=== PATIENT | female | born 2000 | race Caucasian/White ===

== ENCOUNTER 2021-04-24 19:57 | Emergency (ER) | payer SELFPAY ==
--- NOTE | ~2021-04-24 | US_ITS ---
EXAMINATION: US OB <= 14 weeks fetus DATE: 04/24/2021 21:04 INDICATION: Pelvic pain during first trimester of . TECHNIQUE: Real-time pelvic ultrasound utilizing both a transvaginal and transabdominal probe was pe rformed. The interpreting radiologist was not present for the study. COMPARISON: None. FINDINGS: The anteverted uterus measures 9.9 x 6.7 x 5.7 cm. There is an intrauterine gestational sac. A yolk sac and pole are identified. The crown rump length measures 9 mm, which correlates with an giancarlo mated gestational age of 6 weeks and 6 days. heart motion is identified measuring 136 beats per minute (bpm) by M-mode Doppler. 1.8 x 0.9 x 0.7 cm hypoechoic subchorionic hematoma. The right ovary measures 2.5 x 3.1 x 2.8 cm. And contains a 2.6 cm likely corpus luteum cyst. Vascula r flow seen at the right ovary on color Doppler. The left ovary is not visualized. There is no free f luid in the pelvis. IMPRESSION: 1. Single living fetus with heart rate of 136 bpm. 2. Gestational age by ultrasound of 6 weeks 6 day(s) +/- 4 day(s) with ultrasound estimated date of delivery (TAINA) of 12/12/2021. 3. Small subchorionic hematoma. Reviewed, dictated and finalized at location A. IMPRESSION: 1. Single living fetus with heart rate of 136 bpm. 2. Gestational age by ultrasound of 6 weeks 6 day(s) +/- 4 day(s) with ultraso und estimated date of delivery (TIANA) of 12/12/2021. 3. Small subchorionic hematoma.
[2021-04-24 20:15] VITALS: BP 111/61; PULSE 82; RESP 17; TEMP 36.8; O2SAT 100
--- NOTE | 2021-04-24 20:17 | ED.GENADULT ---
HPI - General Adult General Chief complaint: Nausea/Vomiting/Diarrhea Stated complaint: 3-4 weeks ago, N/V Time Seen by Provider: 04/24/21 20:02 History of Present Illness HPI narrative: Patient is a 20-year-old female presents the emergency department with chief complaint of nausea vomiting and abdominal cramping. The patient reports she is approximately 7 weeks and has seen an OB but has not had an ultrasound. The patient denies vaginal bleeding or vaginal discharge reports that she has had a headache today and reports that she has been having multiple episodes of nausea and vomiting the patient reports has not been able to keep fluids down reports that this is her third reports that her most recent was complicated with a placental abruption. Patient reports that she is receiving care, and reports that she is Rh+. Related Data Allergies Allergy/AdvReac Type Severity Reaction Status Date / Time naproxen Allergy Unknown Unknown Verified 04/24/21 20:18 sulfamethoxazole Allergy Unknown Unknown Verified 04/24/21 20:18 trimethoprim Allergy Unknown Unknown Verified 04/24/21 20:18 LIVE VACCINES Allergy Severe Other Uncoded 07/08/18 05:16 Review of Systems Review of Systems: Narrative: A 10 system review of systems was completed on the patient and is negative except for what is stated in the HPI. Nursing and ancillary documentation was reviewed. [facility] Social History Social History Gender identity (if verbalized by the patient): Female Exam Narrative: Exam Narrative: GENERAL: Well-appearing, well-nourished, and in no acute distress. HEAD: Normocephalic, atraumatic. EYES: PERRLA and EOMI. ENT: Nares clear, no rhinorrhea or epistaxis. Mucous membranes moist. NECK: Supple. CHEST: Clear to auscultation. No respiratory distress. HEART: Regular rate and rhythm. No murmur heard. Normal peripheral pulses. ABDOMEN: Soft, mild tenderness to palpation in the suprapubic area, nondistended, normal active bowel sounds. EXTREMITIES: Normal range of motion. No edema. SKIN: Warm, dry, no rash. NEURO: No focal deficits. Alert and oriented x3. PSYCH: Normal mood and affect. Course Vital Signs Vital signs: Vital Signs Temperature 36.8 C 04/24/21 20:15 Pulse Rate 82 07/17/21 20:15 Respiratory Rate 17 04/24/21 20:15 Blood Pressure 111/61 04/24/21 20:15 Pulse Oximetry 100 04/24/21 20:15 Temperature 36.8 C 04/24/21 20:15 Pulse Rate 82 04/24/21 20:15 Respiratory Rate 17 04/24/21 20:15 Blood Pressure 111/61 04/24/21 20:15 Pulse Oximetry 100 04/24/21 20:15 Medical Decision Making Vital Signs Vital Signs: Vital Signs Temperature 36.8 C 04/24/21 20:15 Pulse Rate 82 04/24/21 20:15 Respiratory Rate 17 04/24/21 20:15 Blood Pressure 111/61 04/24/21 20:15 Pulse Oximetry 100 04/24/21 20:15 Temperature 36.8 C 04/24/21 20:15 Pulse Rate 82 04/24/21 20:15 Respiratory Rate 17 04/24/21 20:15 Blood Pressure 111/61 04/24/21 20:15 Pulse Oximetry 04/24/21 20:15 Lab Data Result diagrams: 04/24/21 20:27 04/24/21 20:27 Labs: Lab Results 04/24/21 04/24/21 04/24/21 Range/Units 20:27 20:27 20:27 WBC 13.8 H (4.5-10.0) K/mm3 RBC 4.13 L (4.2-5.4) M/mm3 Hgb 11.8 L (12.0-15.0) g/dL Hct 36.6 L (37.0-47.0) % MCV 88.6 (80-100) fl MCH 28.6 (26-34) pg MCHC 32.2 (32-36) g/dl RDW 13.7 (11.5-14.5) % Plt Count 240 (150-375) k/mm3 MPV 11.2 H (7.4-10.4) fl Immature Gran % (Auto) 0.4 (0-0.5) % Neut % (Auto) 65.6 (45.5-73.1) % Lymph % (Auto) 25.5 (18.3-44.2) % [place] % (Auto) 7.0 (2.6-8.5) % Eos % (Auto) 0.9 (0-4.4) % Baso % (Auto) 0.6 (0.2-1.2) % Lymph # (Auto) 3.51 H (0.9-3.2) K/mm3 [place] # (Auto) 1.0 H (0.1-0.6) K/mm3 Eos # (Auto) 0.1 (0-0.3) K/mm3 Baso
[2021-04-24] MEDS: SODIUM CHLORIDE 0.9% IV 1,000 ML 999 ML IV CONT (20:32)
[2021-04-24] MEDS: diphenhydrAMINE HCl INJ 50 MG/ML VIAL 25 MG IV PUSH (20:32)
[2021-04-24] MEDS: METOCLOPRAMIDE HCL INJ 10 MG/2 ML VIAL IV PUSH (20:32)
[2021-04-24 20:35] LABS: Basophils Absolute Auto 0.1 K/mm3 (0.0-0.1); Basophils Percent Auto 0.6 % (0.2-1.2); Eosinophils Absolute Auto 0.1 K/mm3 (0-0.3); Eosinophils Percent Auto 0.9 % (0-4.4); Hematocrit 36.6 % (37.0-47.0); Hemoglobin 11.8 g/dL (12.0-15.0); Immature Granulocyte Absolute 0.05 K/mm3 (0.00-0.031); Immature Granulocyte Percent A 0.4 % (0-0.5); Lymphocytes Absolute Auto 3.51 K/mm3 (0.9-3.2); Lymphocytes Percent Auto 25.5 % (18.3-44.2); Mean Corpuscular HGB Conc 32.2 g/dl (32-36); Mean Corpuscular Hemoglobin 28.6 pg (26-34); Mean Corpuscular Volume 88.6 fl (80-100); Mean Platelet Volume 11.2 fl (7.4-10.4); Neutrophils Absolute Auto 9.1 K/mm3 (1.3-6.7); Neutrophils Percent Auto 65.6 % (45.5-73.1); Platelet Count Result 240 k/mm3 (150-375); Red Blood Count 4.13 M/mm3 (4.2-5.4); Red Cell Distribution Width 13.7 % (11.5-14.5); White Blood Count 13.8 K/mm3 (4.5-10.0)
[2021-04-24 20:42] LABS: Add Urine Microscopic? YES; Appearance Urine Cloudy (Clear); Bacteria Urine Trace /hpf; Bilirubin Urine Negative (Negative); Blood Urine Negative (Negative); Color Urine Yellow (Yellow); Glucose Urine UA Negative (Negative); Ketones Urine Negative (Negative); Leukocyte Esterase Ur Negative LEU/UL (Negative); Mucus Urine Rare /lpf; Nitrate Urine Negative (Negative); Protein Urine Negative (Negative); RBC Urine 0-2 /hpf (0-2); Specific Grav Ur 1.011 (1.001-1.035); Squamous Epithelial Cell Urine Many /hpf (Few); Urobilinogen Urine Negative mg/dL (<2.0); WBC Urine 0-3 /hpf
[2021-04-24 20:45] LABS: Alanine Aminotransferase 18 U/L (4-35); Albumin Level 4.3 g/dL (3.5-5.1); Alkaline Phosphatase 75 U/L (38-126); Anion Gap 9 mmol/L (8-16); Aspartate Amino Transferase 25 U/L (14-36); Bilirubin,Total 0.2 mg/dL (0.2-1.3); Blood Urea Nitrogen 7 mg/dL (7-17); Calcium 9.8 mg/dL (8.4-10.2); Carbon Dioxide 23 mmol/L (22-30); Chloride 105 mmol/L (98-107); Estimated CRCL calculation 137 ml/min; Estimated Glomerular Filt Rate > 60; Glucose 92 mg/dL (65-110); Lipase 34 U/L (23-300); Potassium 4.1 mmol/L (3.4-5.0); Sodium 137 mmol/L (137-145)
[2021-04-24 22:28] VITALS: BP 134/78; PULSE 87; RESP 16; O2SAT 98
== END 2021-04-24 22:30 | disposition home or self-care (01) ==
PROVIDERS: Emergency Provider Emergency Medicine; PCP Obstetrics & Gynecology
DX: O21.9 Vomiting of pregnancy, unspecified (principal); O46.8X1 Other antepartum hemorrhage, first trimester; Z3A.01 Less than 8 weeks gestation of pregnancy
CPT/HCPCS: 36415; 76801; 80053; 81001; 81025; 83690; 84702; 85025; 85461; 96374; 96375; 99284; J1200; J2765; J7030

== ENCOUNTER 2021-05-17 11:09 | Outpatient (CLI) | payer OTHER, SELFPAY ==
--- NOTE | ~2021-05-17 | US_ITS ---
EXAMINATION: US OB <= 14 weeks fetus DATE: 05/17/2021 12:05 INDICATION: Routine care, first trimester TECHNIQUE: Real-time pelvic transabdominal and transvaginal ultrasound was performed. COMPARISON: 04/24/2021 FINDINGS: The uterus measures 11.4 x 7.4 x 8.6 cm. There is an intrauterine gestational sac. There i s an unchanged 1.7 x 0.5 x 1.0 cm hypoechoic area adjacent to the gestational sac. A yolk sac is iden tified. heart motion is identified measuring 167 beats per minute (bpm) by M-mode Doppler. The crown rump length measures 3.4 cm , which correlates with an estimated gestational age of 10 we eks and 2 day(s) (+/-) 6 day(s). The left ovary is not visualized however no left adnexal abnormality is seen. The right ovary measure s measures 4.4 x 2.4 x 3.2 cm and contains cysts measuring up to 2.3 cm. There is normal vascular melvi w in the right ovary. There is no free fluid in the pelvis. IMPRESSION: 1. Live intrauterine with an estimated gestational age of 10 weeks and 2 day(s) (+/-) 6 day (s) and an estimated delivery date of 12/11/2021. 2. Small subchronic hematoma, unchanged. Reviewed, dictated and finalized at location B. IMPRESSION: 1. Live intrauterine with an estimated gestational age of 10 weeks an d 2 day(s) (+/-) 6 day(s) and an estimated delivery date of 12/11/2021. 2. Small subchronic hematoma, unchanged.
== END 2021-05-17 11:10 | disposition home or self-care (01) ==
PROVIDERS: PCP Obstetrics & Gynecology; Visit Provider Physician Assistant
DX: O36.8911 Maternal care for other specified fetal problems, first trimester, fetus 1 (principal); Z3A.10 10 weeks gestation of pregnancy
CPT/HCPCS: 76801

== ENCOUNTER 2021-10-24 11:24 | Observation (INO) | payer OTHER, SELFPAY ==
[2021-10-24 11:45] VITALS: BP 114/67; PULSE 82
[2021-10-24 11:59] LABS: Add Urine Microscopic? YES; Appearance Urine Clear (Clear); Bacteria Urine Trace /hpf; Bilirubin Urine Negative (Negative); Blood Urine Negative (Negative); Color Urine Yellow (Yellow); Glucose Urine UA Negative (Negative); Ketones Urine Trace mg/dL (Negative); Leukocyte Esterase Ur Negative LEU/UL (NEGATIVE); Mucus Urine Few /lpf; Nitrate Urine Negative (Negative); Protein Urine Negative (Negative); Specific Grav Ur 1.018 (1.001-1.035); Squamous Epithelial Cell Urine Many /hpf (Few); Urobilinogen Urine Negative mg/dL (<2.0); WBC Urine 0-3 /hpf (0-3)
[2021-10-24 12:00] VITALS: BP 111/60; PULSE 76
[2021-10-24 12:15] VITALS: BP 106/62; PULSE 79
--- NOTE | 2021-10-24 12:26 | OBADM ---
This patient, Yumiko Arriola, admitted to the OB room OB Post 116 for observation. Patient/family oriented to hospital policies and general routines including ID bracelet, bed and alarms, visiting hours, pain management, procedures, bathroom and other care routines, personal items, smoking policy, room service/diet, and visiting hours. Patient/Family are encouraged to report perceived risks to care and to ask questions if they do not understand what they are told or what they should do.
[2021-10-24 12:37] VITALS: BP 114/67; PULSE 79
--- NOTE | 2021-10-24 12:38 | PC.NURSE ---
1130- Patient presented with complaint of pelvic pain since this morning at 0600. patient states that she is a patient of Dr. Garsia, but has not been seen since around August. 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 patient states she plans on delivering here.
--- NOTE | 2021-10-24 12:40 | PC.NURSE ---
1220- SPoke with Dr. David Hernandez, urinalysis results given. Orders to do SVE, may discharge home if unremarkable. Patient to come to his office tomorrow morning around 0900 to be seen by him and establish care. If patient unable to make it to office tomorrow , call to make at appt this week.
--- NOTE | 2021-10-26 07:11 | PM.OBTRLD ---
OB - Triage/Final Diagnosis Visit Information Reason for evaluation: threatened labor Comments/Additional reasons for admission: I have assessed the risk for this patient, Yumiko Arriola, and determined that she would benefit from observation care. Evaluation Laboratory results: Laboratory Tests 10/24/21 11:48 Urine Color Yellow Urine Appearance Clear Urine pH 7.0 Ur Specific [place] 1.018 Urine Protein Negative Urine Glucose (UA) Negative Urine Ketones Trace Ur Blood (Man) Negative Urine Nitrate Negative Urine Bilirubin Negative Urine Urobilinogen Negative Ur Leukocyte Esterase Negative Urine RBC 3-5 H Urine WBC 0-3 Ur Squamous Epith Cells Many H Urine Bacteria Trace Urine Mucus Few H
== END 2021-10-24 12:35 | disposition home or self-care (01) ==
PROVIDERS: Admitting Provider Obstetrics & Gynecology; PCP Obstetrics & Gynecology; Visit Provider Obstetrics & Gynecology
DX: O47.03 False labor before 37 completed weeks of gestation, third trimester (principal); Z3A.33 33 weeks gestation of pregnancy
CPT/HCPCS: 59025; 81001; 87086; 87088; G0378; G0379

== ENCOUNTER 2021-10-31 15:44 | Observation (INO) | payer OTHER, SELFPAY ==
[2021-10-31] VITALS (10 sets, daily range): BP systolic 106–126; BP diastolic 34–67; PULSE 78–94; BMI 32.0
--- NOTE | 2021-10-31 16:05 | PM.OBTRLD ---
OB - Triage/Final Diagnosis Visit Information Date of evaluation: 10/30/22 Reason for evaluation: other (nausea) Comments/Additional reasons for admission: I have assessed the risk for this patient, Yumiko Pulliam Flako, and determined that she would benefit from observation care. Evaluation Vital signs: Vital Signs - 24 hr 10/31/21 15:56 10/31/21 16:01 Pulse Rate 84 89 Blood Pressure 124/59 L 121/64
[2021-10-31 17:09] LABS: Add Urine Microscopic? YES; Appearance Urine Clear (Clear); Bacteria Urine Trace /hpf; Bilirubin Urine Negative (Negative); Blood Urine Negative (Negative); Color Urine Yellow (Yellow); Glucose Urine UA Negative (Negative); Ketones Urine 2+ mg/dL (Negative); Leukocyte Esterase Ur Negative LEU/UL (Negative); Mucus Urine Heavy /lpf; Nitrate Urine Negative (Negative); Protein Urine 1+ mg/dL (Negative); RBC Urine 0-2 /hpf (0-2); Specific Grav Ur 1.029 (1.001-1.035); Squamous Epithelial Cell Urine Many /hpf (Few); Urobilinogen Urine Negative mg/dL (<2.0); WBC Urine 0-3 /hpf
--- NOTE | 2021-10-31 17:27 | OBADM ---
This patient, Yumiko Arriola, admitted to the OB room OB Post 115 for observation. Patient/family oriented to hospital policies and general routines including ID bracelet, bed and alarms, visiting hours, pain management, procedures, bathroom and other care routines, personal items, smoking policy, room service/diet, and visiting hours. Patient/Family are encouraged to report perceived risks to care and to ask questions if they do not understand what they are told or what they should do.
[2021-10-31] MEDS: ACETAMINOPHEN 500 MG TABLET 1000 MG PO (17:39)
[2021-10-31] MEDS: PROMETHAZINE HCL 25 MG/ML AMPUL 12.5 MG IV PUSH (17:40)
== END 2021-10-31 18:25 | disposition home or self-care (01) ==
PROVIDERS: Admitting Provider Student in an Organized Health Care Education/Training Program; Visit Provider Student in an Organized Health Care Education/Training Program
DX: O26.893 Other specified pregnancy related conditions, third trimester (principal); R11.0 Nausea; Z3A.34 34 weeks gestation of pregnancy
CPT/HCPCS: 81001; 96374; A9270; G0378; G0379; J2550

== ENCOUNTER 2021-11-26 20:02 | Observation (INO) | payer OTHER, SELFPAY ==
[2021-11-26] VITALS (9 sets, daily range): BP systolic 106–118; BP diastolic 50–66; PULSE 57–86; TEMP 36.8; BMI 31.5
--- NOTE | 2021-11-26 20:55 | OBADM ---
This patient, Yumiko Arriola, admitted to the OB room Labor/Delivery/Recovery 105 for observation. Patient/family oriented to hospital policies and general routines including ID bracelet, bed and alarms, visiting hours, pain management, procedures, bathroom and other care routines, personal items, smoking policy, room service/diet, and visiting hours. Patient/Family are encouraged to report perceived risks to care and to ask questions if they do not understand what they are told or what they should do.
--- NOTE | 2021-12-01 09:10 | PM.OBTRLD ---
OB - Triage/Final Diagnosis Visit Information Date of evaluation: 11/26/21 Reason for evaluation: threatened labor Comments/Additional reasons for admission: I have assessed the risk for this patient, Yumiko Pulliam Flako, and determined that she would benefit from observation care.
== END 2021-11-26 23:05 | disposition home or self-care (01) ==
PROVIDERS: Admitting Provider Obstetrics & Gynecology; Visit Provider Student in an Organized Health Care Education/Training Program
DX: O47.9 False labor, unspecified (principal); Z3A.00 Weeks of gestation of pregnancy not specified
CPT/HCPCS: 84112; G0378; G0379

== ENCOUNTER 2021-12-06 06:14 | Inpatient (IN) | payer OTHER, SELFPAY ==
[2021-12-06] VITALS (23 sets, daily range): BP systolic 93–143; BP diastolic 48–102; PULSE 49–191; RESP 16–20; TEMP 36.2–37.1; O2SAT 98–100; BMI 31.5
[2021-12-06 06:59] LABS: Basophils Absolute Auto 0.1 K/mm3 (0.0-0.1); Basophils Percent Auto 0.6 % (0.2-1.2); Eosinophils Absolute Auto 0.1 K/mm3 (0-0.3); Eosinophils Percent Auto 0.8 % (0-4.4); Hematocrit 31.4 % (37.0-47.0); Hemoglobin 10.3 g/dL (12.0-15.0); Immature Granulocyte Absolute 0.19 K/mm3 (0.00-0.031); Immature Granulocyte Percent A 1.5 % (0-0.5); Lymphocytes Absolute Auto 2.66 K/mm3 (0.9-3.2); Lymphocytes Percent Auto 20.7 % (18.3-44.2); Mean Corpuscular HGB Conc 32.8 g/dl (32-36); Mean Corpuscular Hemoglobin 28.3 pg (26-34); Mean Corpuscular Volume 86.3 fl (80-100); Mean Platelet Volume 11.4 fl (7.4-10.4); Monocytes Absolute Auto 0.7 K/mm3 (0.1-0.6); Monocytes Percent Auto 5.1 % (2.6-8.5); Neutrophils Absolute Auto 9.2 K/mm3 (1.3-6.7); Neutrophils Percent Auto 71.3 % (45.5-73.1); Platelet Count Result 220 k/mm3 (150-375); Red Blood Count 3.64 M/mm3 (4.2-5.4); Red Cell Distribution Width 13.9 % (11.5-14.5); White Blood Count 12.9 K/mm3 (4.5-10.0)
--- NOTE | 2021-12-06 07:01 | LDADM ---
This patient, Yumiko Arirola, was admitted to Labor/Delivery/Recovery 106 on 12/06/21 at 06:14. Plans for labor, pain management and were discussed with patient. Patient/family oriented to hospital policies and general routines including ID bracelet, bed and alarms, visiting hours, pain management, procedures, bathroom and other care routines, personal items, smoking policy, room service/diet and guest tray routines, infant security routines, and visiting hours. Patient/Family are encouraged to report perceived risks to care and to ask questions if they do not understand what they are told or what they should do. See OBIX for further documentation.
[2021-12-06 07:14] LABS: Amphetamine Screen Urine Negative (Negative); Barbiturate Screen Urine Negative (Negative); Benzodiazepines Screen Urine Negative (Negative); Cannabinoid Screen Urine Positive (Negative); Cocaine Screen Urine Negative (Negative); Methadone Screen Urine Negative (Negative); Opiate Screen Urine Negative (Negative); Phencyclidine Screen Urine Negative (Negative)
[2021-12-06] MEDS: LACTATED RINGERS 1,000 ML 125 ML IV CONT (07:17)
[2021-12-06] MEDS: OXYTOCIN 30 UNITS/NS 500 ML 30 UNITS/500 ML BAG IV CONT (07:17)
--- NOTE | 2021-12-06 07:29 | PM.IMHP ---
H&P: HPI History of Present Illness Date/Time: 21-year-old 3 para 2 last menstrual period is unknown but EDC is 12/26 2x10 presented at 39 weeks gestation for induction of labor she had a favorable cervix. She had a history of fast labor delivery and head delivered in the ambulance last visit. She is negative for group B strep and a 10 week ultrasound confirms dates Chief Complaint: induction at term Review of Systems Review of Systems: All systems reviewed & are unremarkable except as noted in HPI and below PMFSH Social History Social History Smoking packs per day: 0.5 Smoking cigarettes per day: 10.0 Years smoked: 10 Smoking pack-years: 5.00 Smoking status: Current every day smoker Tobacco type: cigarettes Gender identity (if verbalized by the patient): Female Spiritual care concerns: No Meds Home Medications and Allergies Home Medications Medication Instructions Recorded Confirmed Type metoclopramide HCl [Reglan] 10 mg PO Q8H PRN 7 Days #21 tablet 04/24/21 12/06/21 Rx PNV cmb#95-ferrous fumarate-FA 1 tablet PO DAILY 10/24/21 12/06/21 History [] acyclovir 800 mg PO DAILY 12/06/21 12/06/21 History Allergies Allergy/AdvReac Type Severity Reaction Status Date / Time naproxen Allergy Rash Verified 11/01/21 11:34 sulfamethoxazole Allergy Rash Verified 11/01/21 11:34 [From Bactrim] trimethoprim [From Bactrim] Allergy Rash Verified 11/01/21 11:34 LIVE VACCINES Allergy Severe Other Uncoded 11/01/21 11:34 Vital Signs Vital Signs - 24 hr 12/06/21 06:43 12/06/21 07:12 Pulse Rate 78 71 Blood Pressure 103/67 116/71 Exam Const: General: no acute distress Eyes: General: appearance normal, both eyes and all related structures Neck: Neck: supple and no JVD Thyroid: thyroid normal Resp: Effort & Inspection: normal respiratory effort Auscultation: clear to auscultation bilaterally Cardio: Rate: regular rate Rhythm: regular rhythm GI: Inspection: non-distended GI Palp: Yes Soft to palpation, No Tenderness to palpation present (GI) and No Guarding due to palpation present (GI) Auscultation: normal bowel sounds : External Female Exam: normal external appearance Speculum Exam - Vagina: normal appearance of the vagina Speculum Exam - Cervix: Cervical os closed ( cervix 3/75/1. AROM clear. FHTs reassuring) Skin: General skin exam: no rashes or lesions noted Extrem: General: normal to inspection and no edema Psych: Mental Status: mental status grossly normal Affect: normal affect H&P: Results Labs Labs: Short CBC 12/06/21 Range/Units 06:51 WBC 12.9 H (4.5-10.0) K/mm3 Hgb 10.3 L (12.0-15.0) g/dL Hct 31.4 L (37.0-47.0) % Plt Count 220 (150-375) k/mm3 Assessment and Plan Additional Plan impression: Term with favorable cervix and history of rapid delivery Plan: Medical induction of labor. Spontaneous vaginal of expected. She does not want an epidural
[2021-12-06 07:51] LABS: HIV 1/2 Ab P24 Ag Result Negative (Negative)
--- NOTE | 2021-12-06 08:46 | WPDANESEPP ---
Anes - Eval Pre Procedure Procedure: labor epidural Date/Time: 12/06/21 08:46 Surgeon: chantal tatum Preop Diagnosis: pain during labor Pre Op Diagnosis: Induction of Labor Patient Data Age: 21 Gender: F Height: 1.68 m Weight: 88.6 kg Last Vital Signs Temp 36.9 C 12/06/21 08:30 Pulse 58 L 12/06/21 08:31 Resp 20 12/06/21 08:30 BP 106/78 12/06/21 08:31 Allergies Allergy/AdvReac Type Severity Reaction Status Date / Time naproxen Allergy Rash Verified 11/01/21 11:34 sulfamethoxazole Allergy Rash Verified 11/01/21 11:34 [From Bactrim] trimethoprim [From Bactrim] Allergy Rash Verified 11/01/21 11:34 LIVE VACCINES Allergy Severe Other Uncoded 11/01/21 11:34 Home Medications Medication Instructions Recorded Confirmed Type metoclopramide HCl [Reglan] 10 mg PO Q8H PRN 7 Days #21 tablet 04/24/21 12/06/21 Rx PNV cmb#95-ferrous fumarate-FA 1 tablet PO DAILY 10/24/21 12/06/21 History [] acyclovir 800 mg PO DAILY 12/06/21 12/06/21 History Laboratory Tests 12/06/21 12/06/21 12/06/21 06:51 06:51 06:51 WBC 12.9 K/mm3 H K/mm3 (4.5-10.0) RBC 3.64 M/mm3 L M/mm3 (4.2-5.4) Hgb 10.3 g/dL L g/dL (12.0-15.0) Hct 31.4 % L % (37.0-47.0) MCV 86.3 fl fl (80-100) MCH 28.3 pg pg (26-34) MCHC 32.8 g/dl g/dl (32-36) RDW 13.9 % % (11.5-14.5) Plt Count 220 k/mm3 k/mm3 (150-375) MPV 11.4 fl H fl (7.4-10.4) Immature Gran % (Auto) 1.5 % H % (0-0.5) Neut % (Auto) 71.3 % % (45.5-73.1) Lymph % (Auto) 20.7 % % (18.3-44.2) [place] % (Auto) 5.1 % % (2.6-8.5) Eos % (Auto) 0.8 % % (0-4.4) Baso % (Auto) 0.6 % % (0.2-1.2) Lymph # (Auto) 2.66 K/mm3 K/mm3 (0.9-3.2) [place] # (Auto) 0.7 K/mm3 H K/mm3 (0.1-0.6) Eos # (Auto) 0.1 K/mm3 K/mm3 (0-0.3) Baso # (Auto) 0.1 K/mm3 K/mm3 (0.0-0.1) Abs Immat Gran (auto) 0.19 K/mm3 H K/mm3 (0.00-0.031) Absolute Neuts (auto) 9.2 K/mm3 H K/mm3 (1.3-6.7) Absolute Nucleated RBC 0.0 K/mm3 K/mm3 (0.0-0.012) Nucleated RBC % 0.0 % % (0.0-0.2) Urine Opiates Screen Urine Methadone Screen Ur Barbiturates Screen Ur Phencyclidine Scrn Ur Amphetamine Screen U Benzodiazepines Scrn Urine Cocaine Screen U Cannabinoids Screen RPR Pending HIV 1&2 Ab/P24 Ag 4thGn Negative (Negative) Blood Type Antibody Screen 12/06/21 12/06/21 06:51 06:51 WBC RBC Hgb Hct MCV MCH MCHC RDW Plt Count MPV Immature Gran % (Auto) Neut % (Auto) Lymph % (Auto) [place] % (Auto) Eos % (Auto) Baso % (Auto) Lymph # (Auto) [place] # (Auto) Eos # (Auto) Baso # (Auto) Abs Immat Gran (auto) Absolute Neuts (auto) Absolute Nucleated RBC Nucleated RBC % Urine Opiates Screen Negative (Negative) Urine Methadone Screen Negative (Negative) Ur Barbiturates Screen Negative (Negative) Ur Phencyclidine Scrn Negative (Negative) Ur Amphetamine Screen Negative (Negative) U Benzodiazepines Scrn Negative (Negative) Urine Cocaine Screen Negative (Negative) U Cannabinoids Screen Positive A (Negative) RPR HIV 1&2 Ab/P24 Ag 4thGn Blood Type O Positive Antibody Screen Negative Patient hx anesthesia problems: none Family hx anesthesia problems: none Results Review: All pre-operative results and documents have been reviewed as part of the pre-operative evaluation. PMFSH Past Medical History
[2021-12-06] MEDS: ONDANSETRON INJ 4 MG/2 ML VIAL IV PUSH ×2 (09:00→13:20)
[2021-12-06] MEDS: fentaNYL CITRATE INJ (*CRX) 100 MCG/2 ML VIAL 50 MCG IV PUSH (09:22)
--- NOTE | 2021-12-06 10:19 | PM.OBPRVD ---
OB - Delivery Note Procedure Delivery date: 12/06/21 Procedure: mil Induction method: AROM Delivery augmentation: Pitocin Delivery monitor: External FHT Route of delivery: Episiotomy description: None Laceration Description: None Specimen: No Quantitative Blood Loss (ml): 59 Disposition: floor Baby Date of : 12/06/21 Time of : 10:06 Weeks of gestation at delivery: 39 Infant gender: Female presentation: vertex position: Right Occiput Anterior Placenta delivery description: Spontaneous Cord Vessel Description: 3 Vessels and Nuchal Cord (x3) score one minute: 8 score five minutes: 9
[2021-12-06] MEDS: OXYTOCIN 30 UNITS/NS 500 ML 30 UNITS/500 ML BAG 125 UNITS IV CONT (10:44)
--- NOTE | 2021-12-06 12:40 | PC.NURSE ---
Patient transferred to post room #284 via wheelchair. Support person present. Oriented to unit, room, information board, rooming in, admission packet and security measures. Patient verbalizes understanding.
[2021-12-06] MEDS: IBUPROFEN 600 MG TABLET PO (16:40)
[2021-12-06] MEDS: PROMETHAZINE HCL 25 MG/ML AMPUL 12.5 MG IV PUSH (18:45)
[2021-12-07 00:25] VITALS: BP 113/68; PULSE 50; RESP 16; TEMP 36.5
[2021-12-07] MEDS: IBUPROFEN 600 MG TABLET PO (00:55)
[2021-12-07 03:54] VITALS: BP 107/67; PULSE 50; RESP 16; TEMP 36.6
[2021-12-07 05:28] LABS: Hematocrit 29.6 % (37.0-47.0); Hemoglobin 9.6 g/dL (12.0-15.0)
--- NOTE | 2021-12-07 07:45 | P.PNOB_ITS ---
OB - PN: Subj Subjective Date/time seen: 12/07/21 07:45 Patient comments: no complaints and pain well controlled baby status: doing well OB - PN: Obj Data Labs CBC & Chem 7: 12/07/21 04:03 Labs: Laboratory Results - last 24 hr 12/06/21 12/06/21 12/07/21 06:51 06:51 04:03 Hgb 9.6 L Hct 29.6 L HIV 1&2 Ab/P24 Ag 4thGn Negative Blood Type O Positive Antibody Screen Negative OB - PN A/P Plan day: 1 Plan: routine care, discharge home and follow up 6 weeks Time Spent With Patient Time: Total time spent is greater than 50% in coordination of care (as docu mented) at patient's floor/unit and/or counseling patient: Time with patient: less than 15 minutes Review of Systems Review of Systems: All systems reviewed & are unremarkable except as noted in HPI and below Exam Const: General: no acute distress Eyes: General: appearance normal, both eyes and all related structures Neck: Neck: supple and no JVD Thyroid: thyroid normal Resp: Effort & Inspection: normal respiratory effort Auscultation: clear to auscultation bilaterally Cardio: Rate: regular rate Rhythm: regular rhythm GI: Inspection: non-distended GI Palp: Yes Soft to palpation, No Tenderness to palpation present (GI) and No Guarding due to palpation present (GI) Auscultation: normal bowel sounds : General: Yes bladder normal to palpation External Female Exam: normal external appearance Speculum Exam - Vagina: normal vaginal discharge and No vaginal bleeding Speculum Exam - Cervix: nontender Bimanual exam- vagina & uterus: bladder normal to palpation and No Cervical tenderness present OB/external & speculum: No vaginal bleeding Skin: General skin exam: no rashes or lesions noted Extrem: General: normal to inspection and no edema Psych: Mental Status: mental status grossly normal Affect: normal affect
--- NOTE | 2021-12-07 07:46 | PM.DS ---
DS: Admitting Diagnosis Discharge Date 12/07/2021 Admitting Diagnosis Term with history of fast labor for induction of labor term DS: Summary Hospital Course Hospital Course: Patient was admitted for induction of labor at term due to history of rapid labor and delivery. She indeed underwent spontaneous vaginal delivery and rapid fashion which was unremarkable. Her hospital course unremarkable she remained afebrile. She was up, voiding without difficulty, ambulating, generally without complaints. Time Spent with Patient Time attestation: Total time spent providing and/or coordinating discharge services: Exam Const: General: no acute distress Eyes: General: appearance normal, both eyes and all related structures Neck: Neck: supple and no JVD Thyroid: thyroid normal Resp: Effort & Inspection: normal respiratory effort Auscultation: clear to auscultation bilaterally Cardio: Rate: regular rate Rhythm: regular rhythm GI: Inspection: non-distended GI Palp: Yes Soft to palpation, No Tenderness to palpation present (GI) and No Guarding due to palpation present (GI) Auscultation: normal bowel sounds : General: Yes bladder normal to palpation External Female Exam: normal external appearance Speculum Exam - Vagina: normal vaginal discharge and No vaginal bleeding Speculum Exam - Cervix: nontender Bimanual exam- vagina & uterus: bladder normal to palpation and No Cervical tenderness present OB/external & speculum: No vaginal bleeding Skin: General skin exam: no rashes or lesions noted Extrem: General: normal to inspection and no edema Psych: Mental Status: mental status grossly normal Affect: normal affect DS: Data Data Completed and Pending Labs on day of discharge: Labs from last 24 hours 12/07/21 12/06/21 12/06/21 04:03 06:51 06:51 Hgb 9.6 L Hct 29.6 L HIV 1&2 Ab/P24 Ag 4thGn Negative Blood Type O Positive Antibody Screen Negative Discharge Plan Discharge Attending physician on discharge: Walt Mcdonald Discharging Clinician: Walt Mcdonald Patient Disposition: Home, Self-Care Activity: may shower, no straining and pelvic rest Diet: heart healthy Wound Care Instructions: follow printed instructions Patient Instructions: Antibiotic Form, How to Stop Smoking (DC) Stand Alone Forms: General Discharge Information Follow-up/Referrals: Walt Mcdonald MD [Physician] - Discharge Medications: Continued PNV cmb#95-ferrous fumarate-FA [] 28 mg iron- 800 mcg tablet 1 tablet PO DAILY RF: 0 metoclopramide HCl [Reglan] 10 mg tablet 10 mg PO Q8H PRN (Reason: Nausea And Vomiting) 7 Days Qty: 21 RF: 0 acyclovir 800 mg tablet 800 mg PO DAILY RF: 0 Date of admission: 12/06/21 06:14 Primary Care Provider: PHYSICIAN,[employer]AGE INTERPRETER Admitting Provider: Walt Mcdonald Attending physician on admission: Walt Mcdonald Condition: Stable
[2021-12-07 09:21] LABS: Rapid Plasma Reagin Non-Reactive (NonReactive)
--- NOTE | 2021-12-07 10:30 | PCCCNOTE ---
Addendum entered by QING Banks 12/07/21 11:32: Recvd email from [facility] that reports: Your information has been reviewed and assessed by a Religion Department Chair. The information you provided met the criteria for a Child Welfare Referral to offer services/provide support to the involved family. Pt. is okay to discharge today. CAMI Hirsch aware. Original Note: Recvd notice that pt. tested + for THC upon UDS. Baby's UDS also THC+. Baby's umbilical cord is pending. Pt. reports using to help with nausea. Pt. reports she and will lives with NIKKI Werner and two previous children. Pt. reports her mother Pilar and mother in law are supportive. Pt. reports having everything for . Pt. is established with both W[facility] and [employer]. Pt. reports having prior involvement with [facility], but all the cases were unfounded. Pt. states the last one was three years ago. resources provided. [facility] Online Report #[id number]. CAMI Hirsch updated.
[2021-12-07 11:13] VITALS: BP 110/70; PULSE 50; RESP 14; TEMP 36.7; O2SAT 98
== END 2021-12-07 12:47 | disposition home or self-care (01) | DRG 560 ==
LOC: ANHLDR 10:47 → ANHOB2 12:45
PROVIDERS: Admitting Provider Obstetrics & Gynecology; Visit Provider Obstetrics & Gynecology
DX: O69.81X0 Labor and delivery complicated by cord around neck, without compression, not applicable or unspecified (principal); Z37.0 Single live birth; Z3A.39 39 weeks gestation of pregnancy; O36.8330 Maternal care for abnormalities of the fetal heart rate or rhythm, third trimester, not applicable or unspecified; O99.334 Smoking (tobacco) complicating childbirth; F17.210 Nicotine dependence, cigarettes, uncomplicated
CPT/HCPCS: 36415; 80307; 85014; 85018; 85025; 86592; 86703; 86850; 86900; 86901; A9270; G0432; J2405; J2550; J2590; J3010; J7120

== ENCOUNTER 2022-06-11 14:30 | Emergency (ER) | payer MEDICAID, SELFPAY ==
--- NOTE | ~2022-06-11 | US_ITS ---
EXAMINATION: US OB <= 14 weeks fetus INDICATION: and abd pain TECHNIQUE: Sonography of the pelvis was performed by transabdominal techniques. COMPARISON: None. RESULT: Uterus: - Orientation: Anteverted - Size: 9.3 x 7.7 x 5.9 cm - Myometrium: homogeneous echogenicity Gestation: - Intrauterine gestational sac: Single present. - Yolk sac: Present, not directly measured. - Embryo: Single present. - [place] rump length: 0.98 cm, corresponding gestational age 7 weeks, 0 days. -Gestational heart rate: present 121 bpm. -Subgestational hematoma: 0.5 x 0.9 x 1.9 cm. Right ovary: - Size : 2.6 x 2.2 x 1.9 cm. - Normal sonographic appearance with physiologic follicles. 1.6 cm cyst. Left ovary: - Size: 2.3 x 2.6 x 1.8 cm. - Normal sonographic appearance with physiologic follicles. Pelvis free fluid: None. IMPRESSION: Single, live intrauterine gestation. 1.9 cm subgestational hematoma Estimated Gestational Age: 7 weeks, 0 days by crown rump length. TIANA by ultrasound 01/28/2023. Reviewed, dictated and finalized at location K. IMPRESSION: Single, live intrauterine gestation. 1.9 cm subgestational hematoma Estimated Gestational Age: 7 weeks, 0 days by crown rump length. TIANA by ultras ound 01/28/2023.
[2022-06-11 14:32] VITALS: BP 129/71; PULSE 66; RESP 18; TEMP 36.3; O2SAT 100
[2022-06-11] MEDS: SODIUM CHLORIDE 0.9% IV 1,000 ML 999 ML IV CONT (14:55)
--- NOTE | 2022-06-11 14:55 | ED.GENADULT ---
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 Patient states she is approximately 6 weeks . States has been having lower abdominal pain described as cramping patient is G4, P3 and is followed by Dr. David Hernandez. States that the cramping is located bilateral lower abdomen states she is not taking thing for the pain she denies any fevers or chills or any other symptoms states she did have some mild vaginal spotting 2 days ago but has had none since Related Data Home Medications Medication Instructions Recorded Confirmed vit no.95-ferrous 1 tablet PO DAILY 10/24/21 12/06/21 fumarate 28 mg-folic acid 800 mcg tablet () acyclovir 800 mg tablet 800 mg PO DAILY 12/06/21 12/06/21 Allergies Allergy/AdvReac Type Severity Reaction Status Date / Time naproxen Allergy Rash Verified 11/01/21 11:34 sulfamethoxazole Allergy Rash Verified 11/01/21 11:34 [From Bactrim] trimethoprim [From Bactrim] Allergy Rash Verified 11/01/21 11:34 LIVE VACCINES Allergy Severe Other Uncoded 11/01/21 11:34 Review of Systems Review of Systems: Gen.: Denies fevers or chills ENT: Denies congestion Respiratory: Denies shortness of breath or cough CV: Denies chest pain or palpitations GI: Reports lower abdominal pain denies nausea vomiting or diarrhea see HPI Musculoskeletal: Denies back pain or muscle pain Neuro: Denies numbness, tingling, weakness or focal weakness Skin: Denies rash Except as documented, all other systems reviewed and negative REPLACED BY [facility] Past Medical History Medical History GERD (gastroesophageal reflux disease) IUP (intrauterine ), incidental Social History Social History Smoking packs per day: 0.5 Smoking cigarettes per day: 10.0 Years smoked: 10 Smoking pack-years: 5.00 Smoking status: Current every day smoker Tobacco type: cigarettes Gender identity (if verbalized by the patient): Female Spiritual care concerns: No Exam Narrative: APPEARANCE: No acute distress, nontoxic, resting in bed HEENT: Normocephalic, atraumatic, OMM RESPIRATORY: No respiratory distress, clear to auscultation bilaterally with no rhonchi wheezing or rales CARDIOVASCULAR: RRR s murmur ABDOMINAL: Soft nondistended tender palpation right lower quadrant left lower quadrant no tenderness right upper quadrant left lower quadrant no rebound or guarding : Normal external exam small amount of white discharge in vaginal canal no vaginal bleeding cervix is closed MUSCULOSKELETAl: Moves all extremities. No clubbing, cyanosis or edema. NEURO: Awake and alert. Following commands, speech normal, no focal deficits SKIN:: Warm, dry. Normal Color PSYCHIATRIC: Normal affect/mood Course Course Emergency Course: Reviewed old records patient with O+ blood type from 12/06/[address] Forrest presentation work-up agrees with plan for discharge and follow-up as an outpatient Patient states that they are feeling much better at this time. States abdominal pain has resolved. Repeat abdominal exam shows the patient's abdomen to be soft and nontender. Discussed with patient results of workup and diagnosis. Discussed need for follow-up with primary care physician, reasons to return to the emergency department in proper use of medication. Patient understands and agrees to current treatment plan Vital Signs Vital signs: Vital Signs Temperature 97.4 F L 06/11/22 14:32 Pulse Rate 66 06/11/22 14:32 Respiratory Rate 18 06/11/22 14:32 Blood Pressure 129/71 06/11/22 14:32 Pulse Oximetry 100 06/11/22 14:32 Oxygen Delivery Room Air 06/11/22 14:32 Temperature 97.4
[2022-06-11 14:56] LABS: Basophils Absolute Auto 0.1 K/mm3 (0.0-0.1); Basophils Percent Auto 0.4 % (0.2-1.2); Eosinophils Absolute Auto 0.1 K/mm3 (0-0.3); Eosinophils Percent Auto 0.8 % (0-4.4); Hematocrit 38.8 % (37.0-47.0); Hemoglobin 12.3 g/dL (12.0-15.0); Immature Granulocyte Percent A 0.7 % (0-0.5); Lymphocytes Absolute Auto 3.46 K/mm3 (0.9-3.2); Lymphocytes Percent Auto 25.6 % (18.3-44.2); Mean Corpuscular HGB Conc 31.7 g/dl (32-36); Mean Corpuscular Hemoglobin 26.6 pg (26-34); Mean Corpuscular Volume 83.8 fl (80-100); Mean Platelet Volume 11.1 fl (7.4-10.4); Monocytes Absolute Auto 1.1 K/mm3 (0.1-0.6); Monocytes Percent Auto 8.1 % (2.6-8.5); Neutrophils Absolute Auto 8.7 K/mm3 (1.3-6.7); Neutrophils Percent Auto 64.4 % (45.5-73.1); Platelet Count Result 286 k/mm3 (150-375); Red Blood Count 4.63 M/mm3 (4.2-5.4); White Blood Count 13.5 K/mm3 (4.5-10.0)
[2022-06-11 16:39] VITALS: BP 138/78; PULSE 62; RESP 18; O2SAT 99
== END 2022-06-11 16:40 | disposition home or self-care (01) ==
PROVIDERS: Emergency Provider Emergency Medicine
DX: O26.891 Other specified pregnancy related conditions, first trimester (principal); R10.31 Right lower quadrant pain; R10.32 Left lower quadrant pain; O99.331 Smoking (tobacco) complicating pregnancy, first trimester; Z3A.01 Less than 8 weeks gestation of pregnancy; F17.210 Nicotine dependence, cigarettes, uncomplicated
CPT/HCPCS: 36415; 76801; 84702; 85025; 96361; 96374; 99284; J0131; J7030

== ENCOUNTER 2022-07-09 19:16 | Emergency (ER) | payer MEDICAID, SELFPAY ==
--- NOTE | ~2022-07-09 | XR_ITS ---
EXAMINATION: XR chest 1V portable Exam Date/Time: 07/09/2022 20:58 CDT HISTORY: cough x 1 wk; hx of asthma, smoker Comparison: EXAMINATION: XR chest 1V portable Exam Date/Time: 07/09/2022 20:58 CDT HISTORY: cough x 1 wk; hx of asthma, smoker Comparison: 07/08/2018. RESULT: Lines, tubes, and devices: None. Lungs and pleura: Clear. Cardiomediastinal silhouette: Stable. Other: No acute osseous or upper abdominal finding. IMPRESSION: No acute cardiopulmonary process. . RESULT: Lines, tubes, and devices: None. Lungs and pleura: Clear. Cardiomediastinal silhouette: Stable. Other: No acute osseous or upper abdominal finding. IMPRESSION: No acute cardiopulmonary process. Reviewed, dictated and finalized at location K. IMPRESSION: No acute cardiopulmonary process. . RESULT: Lines, tubes, and devices: None. Lungs and pleura: Clear. Cardiomediastinal silhouette: Stable. Other: No acute osseous or upper abdominal finding.
[2022-07-09 19:27] VITALS: BP 126/76; PULSE 91; RESP 20; TEMP 36.6; O2SAT 99
--- NOTE | 2022-07-09 20:49 | ED.ASTHMA ---
HPI - Asthma General Chief Complaint: Asthma Stated Complaint: SOB Time Seen by Provider: 07/09/22 20:45 Source: RN notes reviewed History of Present Illness HPI Narrative: Patient presents emergency department from home for asthma. Patient states that she has a history of asthma and has been having a flareup of her asthma over the past week she states she has been having wheezing as well as a cough this been nonproductive states is also been associated with a sore throat as well as an intermittent frontal headache. She states she has been out of her inhaler for the past 1 month. Patient states that she is and is 11 weeks states she is followed by Dr. David Hernandez and had an ultrasound the office last week showing a live intrauterine she denies having any fevers or chills ear pain rhinorrhea chest pain shortness of breath abdominal pain nausea vomiting vaginal bleeding or any other symptoms Related Data Home Medications Medication Instructions Recorded Confirmed vit no.95-ferrous 1 tablet PO DAILY 10/24/21 12/06/21 fumarate 28 mg-folic acid 800 mcg tablet () acyclovir 800 mg tablet 800 mg PO DAILY 12/06/21 12/06/21 Allergies Allergy/AdvReac Type Severity Reaction Status Date / Time naproxen Allergy Rash Verified 07/09/22 19:30 sulfamethoxazole Allergy Rash Verified 07/09/22 19:30 [From Bactrim] trimethoprim [From Bactrim] Allergy Rash Verified 07/09/22 19:30 LIVE VACCINES Allergy Severe Other Uncoded 11/01/21 11:34 Review of Systems Review of Systems: Gen.: Denies fevers or chills ENT: Reports sore throat denies rhinorrhea or ear pain Respiratory: See HPI CV: Denies chest pain or palpitations GI: Denies abdominal pain nausea, emesis or diarrhea first Musculoskeletal: Denies back pain or muscle pain Neuro: Denies numbness, tingling, weakness or focal weakness reports intermittent headache Skin: Denies rash Except as documented, all other systems reviewed and negative PMFSH Past Medical History Medical History GERD (gastroesophageal reflux disease) IUP (intrauterine ), incidental Social History Social History Smoking packs per day: 0.5 Smoking cigarettes per day: 10.0 Years smoked: 10 Smoking pack-years: 5.00 Smoking status: Current every day smoker Tobacco type: cigarettes Gender identity (if verbalized by the patient): Female Spiritual care concerns: No Exam Narrative: APPEARANCE: No acute distress, nontoxic, resting in bed EYES: EOMI HEENT: Normocephalic, atraumatic, TMs clear bilaterally nares pain or mucosa moist mild erythema with no exudate of the posterior pharynx and bilateral tonsils tonsils 2+ uvula midline no trismus tolerating own secretions RESPIRATORY: No respiratory distress mild wheezing in the upper lung wilcox with coughing no rhonchi CARDIOVASCULAR: Regular rate and rhythm without murmurs rubs or gallops. ABDOMINAL: Soft, nontender, nondistended, no rebound or guarding MUSCULOSKELETAl: Moves all extremities. No clubbing, cyanosis or edema. NEURO: Awake and alert. Following commands, speech normal, no focal deficits SKIN:: Warm, dry. No rashes lesions or abrasions PSYCHIATRIC: Normal affect/mood, Course Course Emergency Course: Following breathing treatment states that she is feeling much better repeat lung exam clear to station bilaterally Discussed with patient results of workup and diagnosis. Discussed need for follow-up with primary care, proper use of medication, and reasons to return to the emergency department. Patient understands and agrees to current treatment plan Vital Signs Vital signs: Vital Signs Temperature 97.9 F 07/09/22 19:27 Pulse Rate 91 07/09/22 19:27 Respiratory Rate 20 07/09/22 19:27 Blood Pressure 126/76 07/09/22 19:27 Pulse Oximetry 99 07/09/22 19:27
[2022-07-09] MEDS: IPRATROPIUM BR 0.02% INH SOLN 0.5 MG/2.5 ML VIAL INHALATION (21:05)
[2022-07-09] MEDS: ALBUTEROL SULFATE NEB 2.5 MG/3 ML INH 5 MG INHALATION (21:05)
[2022-07-09 21:10] VITALS: PULSE 90; RESP 24
[2022-07-09 21:35] VITALS: PULSE 91; RESP 20
[2022-07-09 21:54] LABS: SARS-CoV-2 RNA PCR Negative
== END 2022-07-09 22:38 | disposition home or self-care (01) ==
PROVIDERS: Emergency Provider Emergency Medicine
DX: O99.511 Diseases of the respiratory system complicating pregnancy, first trimester (principal); J45.901 Unspecified asthma with (acute) exacerbation; O99.611 Diseases of the digestive system complicating pregnancy, first trimester; K21.9 Gastro-esophageal reflux disease without esophagitis; O99.331 Smoking (tobacco) complicating pregnancy, first trimester; F17.210 Nicotine dependence, cigarettes, uncomplicated; Z3A.11 11 weeks gestation of pregnancy; Z20.822 Contact with and (suspected) exposure to COVID-19
CPT/HCPCS: 71045; 87081; 87880; 94640; 99283; C9803; U0003; U0005

== ENCOUNTER 2022-08-15 14:23 | Emergency (ER) | payer OTHER, SELFPAY ==
[2022-08-15 14:43] VITALS: BP 152/97; PULSE 101; RESP 20; TEMP 36.7; O2SAT 100
--- NOTE | 2022-08-15 16:17 | PC.NURSE ---
no answer at triage x3
== END 2022-08-15 16:17 | disposition left against medical advice (07) ==
LOC: ANHED 16:28
DX: K08.89 Other specified disorders of teeth and supporting structures (principal)
CPT/HCPCS: 99199

== ENCOUNTER 2023-01-12 19:38 | Emergency (ER) | payer OTHER, SELFPAY ==
[2023-01-12 19:50] VITALS: BP 110/65; PULSE 93; RESP 18; TEMP 36.5; O2SAT 99
--- NOTE | 2023-01-12 22:51 | PC.NURSE ---
No answer x2 at this time
== END 2023-01-12 22:51 | disposition left against medical advice (07) ==
DX: R50.9 Fever, unspecified (principal)
CPT/HCPCS: 99199

== ENCOUNTER 2023-01-13 19:48 | Inpatient (IN) | payer OTHER, SELFPAY ==
[2023-01-13 20:00] VITALS: TEMP 36.2
[2023-01-13 21:40] LABS: Basophils Absolute Auto 0.1 K/mm3 (0.0-0.1); Basophils Percent Auto 0.5 % (0.2-1.2); Eosinophils Absolute Auto 0.1 K/mm3 (0-0.3); Eosinophils Percent Auto 0.6 % (0-4.4); Hematocrit 27.7 % (37.0-47.0); Immature Granulocyte Absolute 0.07 K/mm3 (0.00-0.031); Immature Granulocyte Percent A 0.7 % (0-0.5); Lymphocytes Absolute Auto 2.19 K/mm3 (0.9-3.2); Lymphocytes Percent Auto 21.9 % (18.3-44.2); Mean Corpuscular HGB Conc 32.5 g/dl (32-36); Mean Corpuscular Hemoglobin 28.2 pg (26-34); Mean Corpuscular Volume 86.8 fl (80-100); Mean Platelet Volume 11.1 fl (7.4-10.4); Monocytes Absolute Auto 0.8 K/mm3 (0.1-0.6); Monocytes Percent Auto 7.9 % (2.6-8.5); Neutrophils Absolute Auto 6.9 K/mm3 (1.3-6.7); Neutrophils Percent Auto 68.4 % (45.5-73.1); Platelet Count Result 241 k/mm3 (150-375); Red Blood Count 3.19 M/mm3 (4.2-5.4)
[2023-01-13 21:41] VITALS: BMI 28.9
--- NOTE | 2023-01-13 21:43 | LDADM ---
This patient, Yumiko Arriola, was admitted to Labor/Delivery/Recovery 105 on 01/13/23 at 19:48. Plans for labor, pain management and were discussed with patient. Patient/family oriented to hospital policies and general routines including ID bracelet, bed and alarms, visiting hours, pain management, procedures, bathroom and other care routines, personal items, smoking policy, room service/diet and guest tray routines, infant security routines, and visiting hours. Patient/Family are encouraged to report perceived risks to care and to ask questions if they do not understand what they are told or what they should do. See OBIX for further documentation.
[2023-01-13 22:00] VITALS: TEMP 36.1
--- NOTE | 2023-01-13 23:02 | WPDOBADMIT ---
Obstetrics - Admit Note Admission Note: record reviewed. Additions to the history and/or subsequent changes in the physical findings follow. 22 y/o at 37 6/7 weeks with a gush of clear fluid at 1900. Srom confirmed. Feeling contractions. GBS neg. History of rapid deliveries, with one baby born in an ambulance. AVSS NST reactive TOCO: contractions irregularly ABD soft, nontender, gravid, vertex EXT nontender Cervix 5/50/-2. AROM forebag with clear fluid. IUPC placed. A: IUP at term with SROM. P: Anticipate .
[2023-01-13 23:07] LABS: Amphetamine Screen Urine Negative (Negative); Barbiturate Screen Urine Negative (Negative); Benzodiazepines Screen Urine Negative (Negative); Cannabinoid Screen Urine Positive (Negative); Cocaine Screen Urine Negative (Negative); Methadone Screen Urine Negative (Negative); Opiate Screen Urine Negative (Negative); Phencyclidine Screen Urine Negative (Negative)
[2023-01-14] VITALS (16 sets, daily range): BP systolic 105–137; BP diastolic 50–82; PULSE 43–95; RESP 16–20; TEMP 36.1–36.7; O2SAT 97–99
[2023-01-14] MEDS: ONDANSETRON INJ 4 MG/2 ML VIAL IV PUSH (04:10)
[2023-01-14] MEDS: LACTATED RINGERS 1,000 ML 125 ML IV CONT (04:28)
[2023-01-14] MEDS: OXYTOCIN 30 UNITS/NS 500 ML 30 UNITS/500 ML BAG IV CONT (04:29)
--- NOTE | 2023-01-14 05:35 | PM.OBPRVD ---
OB - Delivery Note Procedure Delivery date: 01/14/23 Procedure: Induction method: None Delivery monitor: External FHT, External Uterine and Internal Uterine Route of delivery: Laceration Description: None Specimen: Yes (cord blood) Quantitative Blood Loss (ml): 50 Anesthesia type: Epidural Disposition: PACU Complications: None Narrative: 22 y/o at 38 weeks gestation who presented to the hospital after a gush of fluid. SROM was diagnosed. AROM of a forebag yielded clear fluid. IUPC was placed. The cervix was 7 cm for several hours. IV oxytocin was started at 2 mU/min. She had a sudden urge to push and delivered the infant precipitously to the bed. The cord was clamped and cut. The infant was handed off the field. Cord blood was collected. The placenta delivered spontaneously and was grossly normal in appearance. The usual 3 vessel cord was noted. There were no lacerations. Needle and instrument counts were correct. The patient was taken to recovery room in stable condition. The went to the nursery in stable condition. I was present and scrubbed for the entire delivery. Inez Baby Date of : 01/14/23 Time of : 05:36 Weeks of gestation at delivery: 38 gender: Female Weight (pounds): 5 Weight (ounces): 9 presentation: vertex Placenta delivery description: Spontaneous and Normal Configuration Cord Vessel Description: 3 Vessels score one minute: 8 score five minutes: 9
--- NOTE | 2023-01-14 05:43 | PM.OBDSVD ---
DS: Admitting Diagnosis Discharge Date 01/15/23 Admitting Diagnosis IUP at 37 6/7 weeks SROM DS: Discharge Diagnosis Discharge Diagnosis (1) (normal spontaneous vaginal delivery): Code(s): O80 - Encounter for full-term uncomplicated delivery Status: Acute OB - DS: Summary OB Procedures : None OB Procedures Intrapartum: Spontaneous Vag Delivery OB Procedures: : None Time Spent with Patient Time attestation: Total time spent providing and/or coordinating discharge services: DS: Data Data Completed and Pending Labs on day of discharge: Labs from last 24 hours 01/13/23 01/13/23 01/13/23 21:51 21:19 21:19 WBC RBC Hgb Hct MCV MCH MCHC RDW Plt Count MPV Immature Gran % (Auto) Neut % (Auto) Lymph % (Auto) [place] % (Auto) Eos % (Auto) Baso % (Auto) Lymph # (Auto) [place] # (Auto) Eos # (Auto) Baso # (Auto) Abs Immat Gran (auto) Absolute Neuts (auto) Absolute Nucleated RBC Nucleated RBC % Urine Opiates Screen Negative Urine Methadone Screen Negative Ur Barbiturates Screen Negative Ur Phencyclidine Scrn Negative Ur Amphetamine Screen Negative U Benzodiazepines Scrn Negative Urine Cocaine Screen Negative U Cannabinoids Screen Positive A RPR Pending Blood Type O Positive Antibody Screen Negative 01/13/23 21:19 WBC 10.0 RBC 3.19 L Hgb 9.0 L D Hct 27.7 L MCV 86.8 MCH 28.2 MCHC 32.5 RDW 14.0 Plt Count 241 MPV 11.1 H Immature Gran % (Auto) 0.7 H Neut % (Auto) 68.4 Lymph % (Auto) 21.9 [place] % (Auto) 7.9 Eos % (Auto) 0.6 Baso % (Auto) 0.5 Lymph # (Auto) 2.19 [place] # (Auto) 0.8 H Eos # (Auto) 0.1 Baso # (Auto) 0.1 Abs Immat Gran (auto) 0.07 H Absolute Neuts (auto) 6.9 H Absolute Nucleated RBC 0.0 Nucleated RBC % 0.0 Urine Opiates Screen Urine Methadone Screen Ur Barbiturates Screen Ur Phencyclidine Scrn Ur Amphetamine Screen U Benzodiazepines Scrn Urine Cocaine Screen U Cannabinoids Screen RPR Blood Type Antibody Screen Discharge Plan Discharge Attending physician on discharge: Pk Forrest Discharging Clinician: Pk Forrest Patient Disposition: Home, Self-Care Activity: pelvic rest Diet: regular Discharge Instructions: Call or return if temperature above 100.4? F, increased abdominal pain, increased vaginal bleeding or any new problems. Patient Instructions: How to Stop Smoking (DC) Stand Alone Forms: General Discharge Information Follow-up/Referrals: Walt Mcdaniel MD [Physician] - 6 Weeks Discharge Medications: New ibuprofen 600 mg tablet 600 mg PO Q6H PRN (Reason: cramps) Qty: 30 0RF ferrous sulfate 325 mg (65 mg iron) tablet 325 mg PO DAILY Qty: 30 0RF Continued PNV cmb#95-ferrous fumarate-FA [] 28 mg iron- 800 mcg tablet 1 tablet PO DAILY acyclovir 800 mg tablet 800 mg PO DAILY Discontinued metoclopramide HCl [Reglan] 10 mg tablet 10 mg PO Q8H PRN (Reason: Nausea And Vomiting) 7 Days Qty: 21 0RF Date of admission: 01/13/23 19:48 Primary Care Provider: PHYSICIAN,ASIAN STUDIES PROFESSOR Admitting Provider: Walt Mcdaniel Attending physician on admission: Walt Mcdaniel Condition: Stable
[2023-01-14] MEDS: OXYTOCIN 30 UNITS/NS 500 ML 30 UNITS/500 ML BAG 125 UNITS IV CONT (05:55)
[2023-01-14] MEDS: METOCLOPRAMIDE HCL INJ 10 MG/2 ML VIAL IV PUSH (07:22)
[2023-01-14] MEDS: IBUPROFEN IV 800 MG/200 ML 800 MG/200 ML BAG 400 MG IVPB (07:37)
--- NOTE | 2023-01-14 08:15 | PC.NURSE ---
Patient transferred to post room #280 via wheelchair. Support person present. Oriented to unit, room, information board, rooming in, admission packet and security measures. Patient verbalizes understanding.
[2023-01-14] MEDS: ACETAMINOPHEN 325 MG TABLET 650 MG PO ×2 (09:15→19:07)
[2023-01-14] MEDS: POLYSACCHARIDE IRON COMPLEX 150 MG CAPSULE PO (16:28)
[2023-01-14] MEDS: DOCUSATE SODIUM 100 MG CAPSULE PO (16:28)
[2023-01-14] MEDS: MULTIVIT/MIN/PREN/FOL AC/IRON TABLET 1 TAB PO (16:28)
[2023-01-15] MEDS: ACETAMINOPHEN 325 MG TABLET 650 MG PO (02:34)
[2023-01-15 05:39] LABS: Hematocrit 27.3 % (37.0-47.0); Hemoglobin 8.7 g/dL (12.0-15.0)
[2023-01-15 08:15] VITALS: BP 132/75; PULSE 50; RESP 16; TEMP 36.4; O2SAT 99
[2023-01-15] MEDS: POLYSACCHARIDE IRON COMPLEX 150 MG CAPSULE PO (08:32)
[2023-01-15] MEDS: MULTIVIT/MIN/PREN/FOL AC/IRON TABLET 1 TAB PO (08:32)
[2023-01-15] MEDS: DOCUSATE SODIUM 100 MG CAPSULE PO (08:32)
[2023-01-15] MEDS: IBUPROFEN 600 MG TABLET PO (08:33)
--- NOTE | 2023-01-15 09:54 | PC.NURSE ---
Patient viewed the discharge video Mother & Baby Care, The First Two Weeks . Patient was given the opportunity and encouraged to ask questions. Patient verbalized understanding of information shared and has been given the mother/baby guide for home reference.
--- NOTE | 2023-01-15 14:10 | PM.OBPNVD ---
OB - PN: Subj Subjective Date/time seen: 01/15/23 14:10 Narrative: Pain OK. Would like to go home. OB - PN: Obj Data Labs 01/15/23 05:13 Labs: Laboratory Results - last 24 hr 01/15/23 05:13 Hgb 8.7 L Hct 27.3 L OB - PN A/P Plan day: 1 Comments: A: PPD#1, doing well. P: Home to f/u 6 weeks. Exam Psych: Other: AVSS ABD soft, nontender, fundus firm EXT nontender
[2023-01-16 08:18] LABS: Rapid Plasma Reagin Non-Reactive (NonReactive)
[2023-01-16 13:06] VITALS: BP 120/81; PULSE 69; RESP 16; TEMP 37.3; O2SAT 99
== END 2023-01-15 14:50 | disposition home or self-care (01) | DRG 560 ==
LOC: ANHLDR 01-14 05:44 → ANHOB2 01-14 08:25
PROVIDERS: Admitting Provider Obstetrics & Gynecology; Visit Provider Obstetrics & Gynecology
DX: O69.81X0 Labor and delivery complicated by cord around neck, without compression, not applicable or unspecified (principal); Z37.0 Single live birth; Z3A.38 38 weeks gestation of pregnancy
CPT/HCPCS: 36415; 80307; 85014; 85018; 85025; 86592; 86850; 86900; 86901; A9270; J1741; J2405; J2590; J2765; J7120

== ENCOUNTER 2023-12-08 02:55 | Observation (INO) | payer OTHER, SELFPAY ==
--- NOTE | ~2023-12-08 | US_ITS ---
EXAMINATION: US OB transvaginal DATE: 12/08/2023 09:46 INDICATION: Cervical length assessment during third trimester TECHNIQUE: Real-time pelvic transabdominal and transvaginal ultrasound was performed. COMPARISON: Ultrasound OB limited of the same date. FINDINGS: The measured cervical length is 3.9 cm. Images are included in ultrasound OB limited examin ation of the same date. IMPRESSION: 1. Measured cervical length of 3.9 cm. Reviewed, dictated and finalized at location B. COLOGICAL ASSISTANT
--- NOTE | ~2023-12-08 | US_ITS ---
EXAMINATION: US OB limited DATE: 12/08/2023 09:08 INDICATION: Vaginal bleeding during third trimester . Assess placenta and cervical length. TECHNIQUE: Real-time ultrasound of the pelvis was performed utilizing transabdominal and transvaginal probes. The interpreting radiologist was not present for the study. COMPARISON: None. FINDINGS: There is a single living fetus in vertex presentation. The placenta is posterior and does not appear low-lying. There is a 2 cm anechoic cystic structure without evident interval motion on color Dopple r located along the amniotic right margin of the placenta. On one of the images the placental tissue appears to extend into the wall of the cyst suggesting this represents a superficial antral placental venous lopez as opposed to a placental surface cyst. No evident subchorionic hematoma. heart ra te is 136 beats per minute (bpm). The amniotic fluid volume is subjectively normal. Normal cervical l ength of 3.9 cm. IMPRESSION: 1. Single living fetus in vertex presentation with heart rate of 136 bpm. 2. Normal cervical length of 3.9 cm. 3. 2 cm cystic structure along the side of the right margin of the posterior placenta and fever . Superficial placental venous lopez over a placental surface cyst. Reviewed, dictated and finalized at location B. RITY PROJECT MANAGER IMPRESSION: 1. Single living fetus in vertex presentation with heart rate of 136 bpm . 2. Normal cervical length of 3.9 cm. 3. 2 cm cystic structure along the side of the right margin of the service administrator ior placenta and fever. Superficial placental venous lopez over a placental surf christian cyst.
[2023-12-08 03:15] VITALS: BP 109/59; PULSE 77
[2023-12-08 03:24] VITALS: TEMP 36.4
[2023-12-08] MEDS: DEXTROSE 5%/0.45% SOD CHL 1,000 ML 250 ML IV CONT (04:03)
[2023-12-08 04:06] VITALS: BMI 29.2
--- NOTE | 2023-12-08 06:03 | PM.OBTRLD ---
OB - Triage/Final Diagnosis Visit Information Date of evaluation: 12/08/23 Reason for evaluation: other (bleeding) Comments/Additional reasons for admission: I have assessed the risk for this patient, Yumiko Arriola, and determined that she would benefit from observation care. Evaluation Vital signs: Vital Signs - 24 hr 12/08/23 03:27 12/08/23 03:15 12/08/23 03:24 Temperature 97.5 F L Pulse Rate 77 Blood Pressure 109/59 L Oxygen Delivery Room Air
--- NOTE | 2023-12-08 06:45 | PC.NURSE ---
X2 RNs to bedside. Bleeding noted in toilet with hard stool. Spec exam performed, no bleeding from vagina noted.
--- NOTE | 2023-12-08 06:52 | PC.NURSE ---
Dr. David Hernandez paged to notify of rectal bleeding.
--- NOTE | 2023-12-08 06:54 | PC.NURSE ---
Dr. David Hernandez called back, ordered GI consult. RN repeated order back to confirm.
--- NOTE | 2023-12-08 08:45 | PC.NURSE ---
Dr. David Hernandez to bedside to speak with patient regarding concerns. MD believes this is most likely a hemorrhoid and would like pt to followup in GI office. Discharge orders given upon normal U/S results. RN repeated orders back to confirm. No further orders given at this time.
[2023-12-08 09:40] VITALS: PULSE 59; O2SAT 99
[2023-12-08 09:41] VITALS: BP 109/52; PULSE 60
== END 2023-12-08 10:15 | disposition home or self-care (01) ==
PROVIDERS: Admitting Provider Obstetrics & Gynecology; Visit Provider Obstetrics & Gynecology
DX: O46.93 Antepartum hemorrhage, unspecified, third trimester (principal); O43.893 Other placental disorders, third trimester; Z3A.31 31 weeks gestation of pregnancy
CPT/HCPCS: 76815; 76817; 96374; G0378; G0379; J0696

== ENCOUNTER 2023-12-20 19:10 | Observation (INO) | payer OTHER, SELFPAY ==
[2023-12-20] VITALS (18 sets, daily range): BP systolic 113–117; BP diastolic 59–62; PULSE 70–105; O2SAT 97–100; BMI 28.4
[2023-12-20] MEDS: TERBUTALINE SULFATE 1 MG/ML VIAL 0.25 MG SUB-Q ×2 (20:17→21:05)
[2023-12-20] MEDS: LACTATED RINGERS 500 ML 999 ML IV CONT (20:39)
[2023-12-20 21:06] LABS: Appearance Urine Clear (Clear); Bacteria Urine None Seen /hpf; Bilirubin Urine Negative (Negative); Blood Urine Negative (Negative); Color Urine Yellow (Yellow); Glucose Urine UA Negative (Negative); Ketones Urine Negative (Negative); Leukocyte Esterase Ur Trace LEU/UL (Negative); Nitrate Urine Negative (Negative); Non Pathogenic Casts 0-2; Protein Urine Negative (Negative); RBC Urine 0-2 /hpf (0-2); Specific Grav Ur 1.025 (1.001-1.035); Squamous Epithelial Cell Urine Occasional /hpf (Few); Urobilinogen Urine 0.2 mg/dL (<2.0); WBC Urine 0-5 /hpf (0-3); pH Urine 7.5 (5.0-9.0)
[2023-12-20 21:07] LABS: Add Urine Microscopic? YES
[2023-12-20] MEDS: NIFEdipine 10 MG CAPSULE PO (21:18)
--- NOTE | 2023-12-20 21:30 | OBADM ---
This patient, Yumiko Arriola, admitted to the OB room OB Post 117 for observation. Patient/family oriented to hospital policies and general routines including ID bracelet, bed and alarms, visiting hours, pain management, procedures, bathroom and other care routines, personal items, smoking policy, room service/diet, and visiting hours. Patient/Family are encouraged to report perceived risks to care and to ask questions if they do not understand what they are told or what they should do.
--- NOTE | 2023-12-21 08:01 | PM.OBTRLD ---
OB - Triage/Final Diagnosis Visit Information Date of evaluation: 12/20/23 Reason for evaluation: threatened labor Comments/Additional reasons for admission: I have assessed the risk for this patient, Yumiko Arriola, and determined that she would benefit from observation care. Evaluation Laboratory results: Laboratory Tests 12/20/23 12/20/23 12/20/23 20:49 20:49 20:49 Urine Color Cancelled Yellow Urine Appearance Cancelled Clear Urine pH Cancelled Ur Specific [place] Urine Protein Urine Glucose (UA) Urine Ketones Ur Blood (Man) Urine Nitrate Urine Bilirubin Urine Urobilinogen Ur Leukocyte Esterase Add Ur Microanalysis Leukocyte Esterase Rfl Urine RBC Urine WBC Urine WBC Clumps Ur Squamous Epith Cells Ur Transition Epith Cell Ur Renal Epithelial Cell John Biurate Crystals Calcium Carbonate Cryst Calcium Phosphate Cryst Calcium Oxalate Crystal Leucine Crystals Cystine Crystals Uric Acid Crystals Triple Phos Crystals Sulfonamide Crystals Cholesterol Crystals Tyrosine Crystals Hippuric Acid Crystals Bilirubin Crystals Amorphous Sediment Other Sediment Urine Bacteria Urine Casts Cellular Casts Epithelial Casts Fatty Casts Hyaline Casts Granular Casts Waxy Casts Broad Casts RBC Casts WBC Casts Urine Starch Urine Mucus Urine Trichomonas Urine Yeast (Budding) Ur Oval Fat Bodies Sperm Presence 12/20/23 12/20/23 12/20/23 20:49 20:49 20:49 Urine Color Urine Appearance Urine pH 7.5 Ur Specific [place] Cancelled 1.025 Urine Protein Cancelled Negative Urine Glucose (UA) Cancelled Urine Ketones Ur Blood (Man) Urine Nitrate Urine Bilirubin Urine Urobilinogen Ur Leukocyte Esterase Add Ur Microanalysis Leukocyte Esterase Rfl Urine RBC Urine WBC Urine WBC Clumps Ur Squamous Epith Cells Ur Transition Epith Cell Ur Renal Epithelial Cell John Biurate Crystals Calcium Carbonate Cryst Calcium Phosphate Cryst Calcium Oxalate Crystal Leucine Crystals Cystine Crystals Uric Acid Crystals Triple Phos Crystals Sulfonamide Crystals Cholesterol Crystals Tyrosine Crystals Hippuric Acid Crystals Bilirubin Crystals Amorphous Sediment Other Sediment Urine Bacteria Urine Casts Cellular Casts Epithelial Casts Fatty Casts Hyaline Casts Granular Casts Waxy Casts Broad Casts RBC Casts WBC Casts Urine Starch Urine Mucus Urine Trichomonas Urine Yeast (Budding) Ur Oval Fat Bodies Sperm Presence 12/20/23 12/20/23 12/20/23 20:49 20:49 20:49 Urine Color Urine Appearance Urine pH Ur Specific [place] Urine Protein Urine Glucose (UA) Negative Urine Ketones Cancelled Negative Ur Blood (Man) Cancelled Negative Urine Nitrate Cancelled Urine Bilirubin Urine Urobilinogen Ur Leukocyte Esterase Add Ur Microanalysis Leukocyte Esterase Rfl Urine RBC Urine WBC Urine WBC Clumps Ur Squamous Epith Cells Ur Transition Epith Cell Ur Renal Epithelial Cell L[place] Way Biurate Crystals Calcium Carbonate Cryst Calcium Phosphate Cryst Calcium Oxalate Crystal Leucine Crystals Cystine Crystals Uric Acid Crystals Triple Phos Crystals Sulfonamide Crystals Cholesterol Crystals Tyrosine Crystals Hippuric Acid Crystals Bilirubin Crystals Amorphous Sediment Other Sediment Urine Bacteria Urine Casts Cellular Casts Epithelial Casts Fatty Casts Hyaline Casts Granular Casts Waxy Casts Broad Casts RBC Casts WBC Casts Urine Starch Urine Mucus Urine Trichomonas Urine Yeast (Budding) Ur Oval Fat Bodies Sperm Presence 12/20/23 12/20/23 12/20/23 20:49 20
== END 2023-12-20 22:30 | disposition home or self-care (01) ==
PROVIDERS: Admitting Provider Obstetrics & Gynecology; Visit Provider Obstetrics & Gynecology
DX: O47.9 False labor, unspecified (principal); Z3A.00 Weeks of gestation of pregnancy not specified
CPT/HCPCS: 81001; 96372; A9270; G0378; G0379; J3105; J7120

== ENCOUNTER 2023-12-23 22:21 | Observation (INO) | payer OTHER, SELFPAY ==
[2023-12-23 21:26] VITALS: BP 107/61; PULSE 112
--- NOTE | 2023-12-23 22:01 | PC.NURSE ---
Notified Dr. Coronado of patient arrival to OB unit with complaint of contractions. Patient reports irregular contractions throughout the day. Patient states she did not take her dose of prescribed procardia today. The patient reports active movemements. Patient states she thought she may have started leaking upon arrival to OB unit. Mild irregular contractions noted via TOCO monitoring. FHTs moderate variability. VSS. ROM plus pending results. SVE 1/thick/high/posterior. Orders received to administer IV bolus 500ml D5LR and 20mg Procardia. If contractions resolve and NST reactive patient may be discharged to home and instructed to follow up as scheduled and take PRN procardia prescription as prescribed.
[2023-12-23] MEDS: DEXTROSE 5%/LACTATED RINGERS 500 ML 999 ML IV CONT (22:25)
[2023-12-23] MEDS: NIFEdipine 10 MG CAPSULE 20 MG PO (22:31)
--- NOTE | 2023-12-23 23:10 | PC.NURSE ---
Patient states she is resting comfortably without complaint of contractions/cramping/tightening/pain. Patient agreeable to discharge at this time.
[2023-12-23 23:39] VITALS: BMI 28.4
[2023-12-23 23:42] VITALS: BP 107/61; PULSE 112
--- NOTE | 2023-12-26 06:22 | PM.OBTRLD ---
OB - Triage/Final Diagnosis Visit Information Date of evaluation: 12/25/23 Reason for evaluation: threatened labor Comments/Additional reasons for admission: I have assessed the risk for this patient, Yumiko Pulliam Flako, and determined that she would benefit from observation care.
== END 2023-12-23 23:38 ==
PROVIDERS: Admitting Provider Obstetrics & Gynecology; Visit Provider Obstetrics & Gynecology
DX: O47.03 False labor before 37 completed weeks of gestation, third trimester (principal); Z3A.33 33 weeks gestation of pregnancy
CPT/HCPCS: 59025; 84112; A9270; G0379; J7121

== ENCOUNTER 2024-01-04 21:58 | Observation (INO) | payer OTHER, SELFPAY ==
[2024-01-04 22:49] VITALS: BMI 29.5
--- NOTE | 2024-01-04 22:50 | ADMGEN ---
This patient, Yumiko Arriola, was admitted to Labor/Delivery/Recovery 106-00. Patient/family oriented to hospital policies and general routines including ID bracelet, bed and alarms, visiting hours, pain management, procedures, bathroom and other care routines, personal items, smoking policy, room service/diet, and visiting hours. Information on how to activate the Rapid Response Team has been discussed. Patient/Family are encouraged to report perceived risks to care and to ask questions if they do not understand what they are told or what they should do.
--- NOTE | 2024-01-04 23:09 | PC.NURSE ---
Patient requests that another ROM plus is performed to confirm her membranes are not ruptured. Informed patient she will have to receive another charge for ROM plus test. States that this is ok with her and would like for us to proceed with another ROM plus test. Informed Rosemary, charge nurse who will proceed to perform the second test.
--- NOTE | 2024-01-04 23:12 | PC.NURSE ---
Patient requests that another ROM plus is performed to confirm her membranes are not ruptured. Informed patient she will have to receive another charge for ROM plus test. States that this is ok with her and would like for us to proceed with another ROM plus test. Informed Rosemary, charge nurse. Will have another nurse perform ROM plus.
[2024-01-04 23:28] LABS: Appearance Urine Clear (Clear); Bilirubin Urine Negative (Negative); Blood Urine Negative (Negative); Color Urine Yellow (Yellow); Glucose Urine UA Negative (Negative); Ketones Urine Negative (Negative); Leukocyte Esterase Ur Negative LEU/UL (Negative); Nitrate Urine Negative (Negative); Protein Urine Negative (Negative); Urobilinogen Urine 0.2 mg/dL (<2.0)
[2024-01-04 23:52] LABS: Add Urine Microscopic? NO
--- NOTE | 2024-01-05 00:26 | PC.NURSE ---
Discussed discharge instructions with patient. Emphasized to take home meds as described. Pleae come back in if you feel more leaking of fluid, contractions 3-5 min apart, or vaginal bleeding. Perform kick counts at home. Patient verbalized understanding.
--- NOTE | 2024-01-13 12:44 | P.PNOB_ITS ---
OB - Triage/Final Diagnosis Visit Information Comments/Additional reasons for admission: I have assessed the risk for this patient, Yumiko Arriola, and determined that she would benefit from observation care. Evaluation Laboratory results: Laboratory Tests 01/04/24 23:21 Urine Color Yellow Urine Appearance Clear Urine pH 7.0 Ur Specific [place] 1.010 Urine Protein Negative Urine Glucose (UA) Negative Urine Ketones Negative Ur Blood (Man) Negative Urine Nitrate Negative Urine Bilirubin Negative Urine Urobilinogen 0.2 Leukocyte Esterase Rfl Negative Final Diagnosis (1) False labor: Code(s): O47.9 - False labor, unspecified Status: Acute
== END 2024-01-05 00:30 | disposition home or self-care (01) ==
PROVIDERS: Admitting Provider Obstetrics & Gynecology; Visit Provider Obstetrics & Gynecology
DX: O47.9 False labor, unspecified (principal); Z3A.35 35 weeks gestation of pregnancy
CPT/HCPCS: 81003; 84112; G0378; G0379

== ENCOUNTER 2024-01-15 13:34 | Observation (INO) | payer OTHER, SELFPAY ==
--- NOTE | 2024-01-15 13:45 | OBADM ---
This patient, Yumiko Arriola, admitted to the OB room Labor/Delivery/Recovery 106 for observation. Patient/family oriented to hospital policies and general routines including ID bracelet, bed and alarms, visiting hours, pain management, procedures, bathroom and other care routines, personal items, smoking policy, room service/diet, and visiting hours. Patient/Family are encouraged to report perceived risks to care and to ask questions if they do not understand what they are told or what they should do.
--- NOTE | 2024-01-17 05:51 | PM.OBTRLD ---
OB - Triage/Final Diagnosis Visit Information Date of evaluation: 01/15/24 Reason for evaluation: threatened labor Comments/Additional reasons for admission: I have assessed the risk for this patient, Yumiko Arriola, and determined that she would benefit from observation care.
--- NOTE | 2024-01-18 07:32 | PM.OBTRLD ---
OB - Triage/Final Diagnosis Visit Information Reason for evaluation: threatened labor Comments/Additional reasons for admission: I have assessed the risk for this patient, Yumiko Arriola, and determined that she would benefit from observation care.
== END 2024-01-15 16:15 | disposition home or self-care (01) ==
PROVIDERS: Admitting Provider Obstetrics & Gynecology; Visit Provider Obstetrics & Gynecology
DX: O47.1 False labor at or after 37 completed weeks of gestation (principal); Z3A.37 37 weeks gestation of pregnancy
CPT/HCPCS: 84112; G0378; G0379

== ENCOUNTER 2024-01-21 22:13 | Inpatient (IN) | payer OTHER, SELFPAY ==
[2024-01-21] VITALS (7 sets, daily range): BP systolic 103–127; BP diastolic 56–78; PULSE 67–118; RESP 18; TEMP 36.9; BMI 29.2
--- NOTE | 2024-01-21 22:13 | LDADM ---
This patient, Yumiko Arriola, was admitted to Labor/Delivery/Recovery 105 on 01/21/24 at 22:13. Plans for labor, pain management and were discussed with patient. Patient/family oriented to hospital policies and general routines including ID bracelet, bed and alarms, visiting hours, pain management, procedures, bathroom and other care routines, personal items, smoking policy, room service/diet and guest tray routines, infant security routines, and visiting hours. Patient/Family are encouraged to report perceived risks to care and to ask questions if they do not understand what they are told or what they should do. See OBIX for further documentation.
--- NOTE | 2024-01-21 22:29 | PC.NURSE ---
Dr. Chung updated on maternal and assessments including positive ROM plus result. Orders for admission and augmentation of labor received.
[2024-01-21] MEDS: OXYTOCIN 30 UNITS/NS 500 ML 30 UNITS/500 ML BAG IV CONT (22:50)
[2024-01-21] MEDS: LACTATED RINGERS 1,000 ML 125 ML IV CONT (22:54)
[2024-01-21 23:02] LABS: Basophils Percent Auto 0.3 % (0.2-1.2); Eosinophils Absolute Auto 0.1 K/mm3 (0-0.3); Eosinophils Percent Auto 0.7 % (0-4.4); Hematocrit 26.8 % (37.0-47.0); Hemoglobin 8.7 g/dL (12.0-15.0); Immature Granulocyte Absolute 0.16 K/mm3 (0.00-0.031); Immature Granulocyte Percent A 1.1 % (0-0.5); Lymphocytes Absolute Auto 2.79 K/mm3 (0.9-3.2); Lymphocytes Percent Auto 19.9 % (18.3-44.2); Mean Corpuscular HGB Conc 32.5 g/dl (32-36); Mean Corpuscular Hemoglobin 26.4 pg (26-34); Mean Corpuscular Volume 81.5 fl (80-100); Mean Platelet Volume 11.2 fl (7.4-10.4); Monocytes Percent Auto 7.3 % (2.6-8.5); Neutrophils Absolute Auto 9.9 K/mm3 (1.3-6.7); Neutrophils Percent Auto 70.7 % (45.5-73.1); Platelet Count Result 263 k/mm3 (150-375); Red Blood Count 3.29 M/mm3 (4.2-5.4); Red Cell Distribution Width 14.7 % (11.5-14.5)
[2024-01-22] VITALS (38 sets, daily range): BP systolic 87–139; BP diastolic 49–96; PULSE 53–101; RESP 16–18; TEMP 36.2–36.8; O2SAT 99–100
--- NOTE | 2024-01-22 06:39 | PM.IMHP ---
H&P: HPI History of Present Illness Date/Time: 01/22/24 06:39 Chief Complaint: Labor at term Narrative: 23-year-old 5 para 4 whose last menstrual period is unknown, EDC is 02/05/2024, confirmed by early ultrasound presents at term in active labor. She is a smoker the would not stop smoking she is negative for group B strep. She was also positive for THC upon admission was counseled to stop doing that. The has otherwise been uncomplicated. [facility] Past Medical History Medical History GERD (gastroesophageal reflux disease) IUP (intrauterine ), incidental Social History Social History Smoking packs per day: 0.5 Smoking cigarettes per day: 10.0 Years smoked: 10 Smoking pack-years: 5.00 Smoking status: Current every day smoker Tobacco type: cigarettes Substance use: current Do You Feel Safe in your Home?: Yes Lack of Transportation: No Lack of Food: Never True Current Housing: I Have Housing Concerned About Future Housing: No Difficulty Paying Gas/Electric Bills: No Difficulty Paying for Meds: No Currently Unemployed: No Education: Grade School Difficulty w/ Childcare or Family Care: No Gender identity (if verbalized by the patient): Female Spiritual care concerns: No Meds Home Medications and Allergies Home Medications Medication Instructions Recorded Confirmed Type vit no.95-ferrous 1 tablet PO DAILY 10/24/21 01/22/24 History fumarate 28 mg-folic acid 800 mcg tablet () acyclovir 800 mg tablet 800 mg PO DAILY 12/06/21 01/22/24 History ferrous sulfate 325 mg (65 mg 325 mg PO DAILY #30 tabs 01/15/23 01/22/24 Rx iron) tablet Allergies Allergy/AdvReac Type Severity Reaction Status Date / Time naproxen Allergy Rash Verified 01/04/24 22:48 sulfamethoxazole Allergy Rash Verified 01/04/24 22:48 [From Bactrim] trimethoprim [From Bactrim] Allergy Rash Verified 01/04/24 22:48 LIVE VACCINES Allergy Severe Other Uncoded 01/04/24 22:48 Vital Signs Vital Signs - 24 hr 01/21/24 21:23 01/21/24 21:31 01/21/24 21:46 Temperature Pulse Rate 118 H 109 H 102 H Respiratory Rate Blood Pressure 123/78 127/69 122/68 Oxygen Delivery 01/21/24 23:20 01/21/24 23:31 01/21/24 23:46 Temperature Pulse Rate 91 78 67 Respiratory Rate Blood Pressure 105/57 L 103/56 L 106/56 L Oxygen Delivery 01/22/24 00:01 01/21/24 23:00 01/22/24 00:16 Temperature 98.4 F Pulse Rate 76 70 Respiratory Rate 18 Blood Pressure 115/69 106/68 Oxygen Delivery 01/22/24 00:31 01/22/24 00:46 01/22/24 01:01 Temperature Pulse Rate 67 69 63 Respiratory Rate Blood Pressure 118/64 115/72 110/53 L Oxygen Delivery 01/22/24 01:16 01/22/24 01:31 01/22/24 01:46 Temperature Pulse Rate 59 L 64 70 Respiratory Rate Blood Pressure 102/58 L 107/65 100/49 L Oxygen Delivery 01/22/24 02:01 01/22/24 02:16 01/22/24 01:00 Temperature 98.3 F Pulse Rate 65 69 Respiratory Rate Blood Pressure 122/73 116/80 Oxygen Delivery 01/22/24 03:00 01/22/24 04:00 01/22/24 04:38 Temperature 97.9 F 97.6 F Pulse Rate 63 Respiratory Rate 16 18 Blood Pressure 98/58 L Oxygen Delivery 01/22/24 04:46 01/22/24 05:01 01/22/24 05:16 Temperature Pulse Rate 67 62 57 L Respiratory Rate Blood Pressure 99/50 L 101/63 87/51 L Oxygen Delivery 01/22/24 05:31 01/22/24 05:46 01/22/24 06:01 Temperature Pulse Rate 60 68 56 L Respiratory Rate Blood Pressure 107/71 123/74 118/74 Oxygen Delivery 01/22/24 06:16 01/22/24 06:00 01/21/24 21:30 Temperature 97.8 F Pulse Rate 57 L Respiratory Rate 18 Blood Pressure 120/71 Oxygen Delivery Room Air Exam Const: General: cooperative, healthy appearing and comfortable Nutritional Appearance: average
[2024-01-22] MEDS: LACTATED RINGERS 1,000 ML 125 ML IV CONT (06:48)
--- NOTE | 2024-01-22 07:33 | PM.OBPRVD ---
OB - Vaginal Delivery Note Procedure Delivery date: 01/22/24 Induction method: None Delivery augmentation: Rupture of Membranes Delivery monitor: External FHT Route of delivery: Episiotomy description: None Laceration Description: None Quantitative Blood Loss (ml): 161 Anesthesia type: None Disposition: Floor Complications: No immediate complications Baby Date of : 01/22/24 Time of : 07:23 Weeks of gestation at delivery: 38 Infant gender: Female presentation: vertex position: Right Occiput Anterior Placenta delivery description: Spontaneous Cord Vessel Description: 3 Vessels score one minute: 8 score five minutes: 9
--- NOTE | 2024-01-22 07:34 | P.DS_ITS ---
DS: Admitting Diagnosis Discharge Date 01/23/2024 Admitting Diagnosis DS: Discharge Diagnosis Discharge Diagnosis (1) Term : Code(s): Z34.90 - Encounter for supervision of normal , unspecified, unspecified trimester Status: Acute DS: Summary Hospital Course Reason for hospitalization: patient was admitted in active labor on the early a.m. of 01/22/2024. Underwent spontaneous vaginal delivery with no epidural. Hospital Course: Patient's hospital course unremarkable. She remained afebrile. She was up, voiding without difficulty, eating regular diet, ambulating, generally without complaints. Time spent discussing smoking cessation with patient: 3 to 10 minutes Time Spent with Patient Time attestation: Total time spent providing and/or coordinating discharge services: Exam Const: General: cooperative, healthy appearing and comfortable Nutritional Appearance: average body habitus Orientation/consciousness: oriented to person, oriented to place and oriented to time Resp: Effort & Inspection: normal respiratory effort Cardio: Rate: regular rate Rhythm: regular rhythm Heart sounds: S1 normal heart sound present and S2 normal heart sound present GI: Inspection: normal to inspection ( Fundus firm below umbilicus) DS: Data Data Completed and Pending Labs on day of discharge: Labs from last 24 hours 01/21/24 22:50 WBC 14.0 H RBC 3.29 L Hgb 8.7 L Hct 26.8 L MCV 81.5 MCH 26.4 MCHC 32.5 RDW 14.7 H Plt Count 263 MPV 11.2 H Immature Gran % (Auto) 1.1 H Neut % (Auto) 70.7 Lymph % (Auto) 19.9 [place] % (Auto) 7.3 Eos % (Auto) 0.7 Baso % (Auto) 0.3 Lymph # (Auto) 2.79 [place] # (Auto) 1.0 H Eos # (Auto) 0.1 Baso # (Auto) 0.0 Abs Immat Gran (auto) 0.16 H Absolute Neuts (auto) 9.9 H Absolute Nucleated RBC 0.000 Nucleated RBC % 0.0 Urine Opiates Screen Pending Urine Methadone Screen Pending Ur Barbiturates Screen Pending Ur Phencyclidine Scrn Pending Ur Amphetamine Screen Pending U Benzodiazepines Scrn Pending Urine Cocaine Screen Pending U Cannabinoids Screen Pending RPR Pending Blood Type O Positive Antibody Screen Negative Discharge Plan Discharge Attending physician on discharge: Walt Mcdaniel Discharging Clinician: Walt Mcdaniel Patient Disposition: Home, Self-Care Activity: may shower and pelvic rest Diet: heart healthy Wound Care Instructions: follow printed instructions Patient Instructions: Antibiotic Form Stand Alone Forms: General Discharge Information Follow-up/Referrals: Walt Mcdaniel MD [Physician] - Discharge Medications: Continued PNV cmb#95-ferrous fumarate-FA [] 28 mg iron- 800 mcg tablet 1 tablet PO DAILY ferrous sulfate 325 mg (65 mg iron) tablet 325 mg PO DAILY Qty: 30 0RF acyclovir 800 mg tablet 800 mg PO DAILY Date of admission: 01/21/24 22:13 Primary Care Provider: UNKNOWN,DOCTOR Admitting Provider: Walt Mcdaniel Attending physician on admission: Walt Mcdaniel Condition: Stable
[2024-01-22] MEDS: OXYTOCIN 30 UNITS/NS 500 ML 30 UNITS/500 ML BAG 125 UNITS IV CONT (07:48)
[2024-01-22] MEDS: ACETAMINOPHEN 500 MG TABLET 1000 MG (07:48)
[2024-01-22] MEDS: ONDANSETRON INJ 4 MG/2 ML VIAL IV PUSH ×2 (07:51→21:25)
[2024-01-22 08:30] LABS: Amphetamine Screen Urine Negative (Negative); Barbiturate Screen Urine Negative (Negative); Benzodiazepines Screen Urine Negative (Negative); Cannabinoid Screen Urine Positive (Negative); Cocaine Screen Urine Negative (Negative); Methadone Screen Urine Negative (Negative); Opiate Screen Urine Negative (Negative); Phencyclidine Screen Urine Negative (Negative)
[2024-01-22] MEDS: BENZOCAINE 20% AER SPR (*SP) 56 GM CAN 1 SPRAY TOPICAL (09:26)
[2024-01-22] MEDS: WITCH HAZEL 40 PADS 1 PAD TOPICAL (09:26)
--- NOTE | 2024-01-22 09:50 | PC.NURSE ---
Patient transferred to post room #281 via wheel chair. Support person present. Oriented to unit, room, information board, rooming in, admission packet and security measures. Patient verbalizes understanding.
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
[2024-01-22] MEDS: PROMETHAZINE HCL 25 MG/ML AMPUL 12.5 MG IV PUSH (10:34)
--- NOTE | 2024-01-22 16:07 | PCCCNOTE ---
Addendum entered by Shala Heath, [facility] 01/24/24 08:08: Ashley Go reports did leave a voicemail with Juan on 01/23/24 to notify of baby's discharge. Addendum entered by Shala Heath, [facility] 01/24/24 08:05: Recv'd email from [facility] on Monday01/22/24 that states: Your information has been reviewed and assessed by a Drophammer Operator. The information you provided met the criteria for a Child Welfare Referral to offer services/provide support to the involved family. Your final intake ID number for this report is [id number]. -Bedside RN was made aware. Addendum entered by Ashley Go, [facility] 01/23/24 09:25: Received call from Juan at [facility] at [phone] who requests to be called at discharge as she will be contacting pt. to offer services. DCFS report was made online and they will not be taking a report however did send case to [facility] and they will offer in home services. Original Note: Recvd consult due to +THC on her UDS. Met with pt. who admits to using THC during due to nausea, and admits to prior DCFS involvement. Pt. reports no DCFS cases open. This is pt's 5th child. Pt. reports she, NIKKI Webb, and their five children will be living in [place]. Pt. reports her mother, and mother in law are very supportive. Pt. reports having all supplies and already established with [facility] and [employer]. DCFS report made online #[id number]. resources provided.
[2024-01-22] MEDS: DOCUSATE SODIUM 100 MG CAPSULE PO (18:04)
[2024-01-22] MEDS: POLYSACCHARIDE IRON COMPLEX 150 MG CAPSULE PO (18:04)
[2024-01-22] MEDS: HYDROcodone/acetaminophen (*CRX) 5-325 MG TABLET 1 TAB PO (18:04)
[2024-01-22] MEDS: ACETAMINOPHEN 325 MG TABLET 650 MG PO (21:22)
[2024-01-23 04:53] LABS: Hemoglobin 8.3 g/dL (12.0-15.0)
--- NOTE | 2024-01-23 07:04 | PM.OBPNVD ---
OB - PN: Subj Subjective Date/time seen: 01/23/24 07:04 Patient comments: no complaints and pain well controlled baby status: doing well OB - PN: Obj Data Labs 01/23/24 04:42 Labs: Laboratory Results - last 24 hr 01/21/24 01/22/24 01/23/24 22:50 07:22 04:42 Hgb 8.3 L Hct 26.0 L Urine Opiates Screen Cancelled Negative Urine Methadone Screen Cancelled Negative Ur Barbiturates Screen Cancelled Negative Ur Phencyclidine Scrn Cancelled Negative Ur Amphetamine Screen Cancelled Negative U Benzodiazepines Scrn Cancelled Negative Urine Cocaine Screen Cancelled Negative U Cannabinoids Screen Cancelled Positive A OB - PN A/P Plan day: 1 Plan: routine care, discharge home and follow up 6 weeks Time Spent With Patient Time: Total time spent is greater than 50% in coordination of care (as documented) at patient's floor/unit and/or counseling patient: Time with patient: less than 15 minutes Exam Const: General: cooperative, healthy appearing and comfortable Nutritional Appearance: average body habitus Orientation/consciousness: oriented to person, oriented to place and oriented to time HENMT: Head: normal to inspection Resp: Effort & Inspection: normal respiratory effort Cardio: Rate: regular rate Rhythm: regular rhythm Heart sounds: S1 normal heart sound present and S2 normal heart sound present GI: Inspection: normal to inspection
[2024-01-23] MEDS: POLYSACCHARIDE IRON COMPLEX 150 MG CAPSULE PO (07:14)
[2024-01-23] MEDS: MULTIVIT/MIN/PREN/FOL AC/IRON TABLET 1 TAB PO (07:14)
[2024-01-23 08:23] VITALS: BP 124/87; PULSE 57; RESP 16; TEMP 36.5; O2SAT 99
[2024-01-23] MEDS: medroxyPROGESTERone ACETATE IM 150 MG/ML SYR IM (10:51)
--- NOTE | 2024-01-23 11:02 | PC.NURSE ---
Patient states that she wishes to drive herself home. I explained that we do not recommend driving home but we couldn't not allow her to drive home. She explained that she lives 5 minutes from here and will be fine.
[2024-01-23 12:36] LABS: Rapid Plasma Reagin Non-Reactive (NonReactive)
[2024-01-24 10:30] VITALS: BP 108/64; PULSE 83; RESP 18; TEMP 36.7; O2SAT 100
== END 2024-01-23 11:03 | disposition home or self-care (01) | DRG 560 ==
LOC: ANHOBOP 22:14 → ANHLDR 22:14 → ANHOB2 01-22 09:52
PROVIDERS: Admitting Provider Obstetrics & Gynecology Gynecology; Visit Provider Obstetrics & Gynecology
DX: O99.334 Smoking (tobacco) complicating childbirth (principal); F17.210 Nicotine dependence, cigarettes, uncomplicated; O99.324 Drug use complicating childbirth; F12.90 Cannabis use, unspecified, uncomplicated; Z3A.38 38 weeks gestation of pregnancy; Z37.0 Single live birth
CPT/HCPCS: 36415; 80307; 84112; 85014; 85018; 85025; 86592; 86850; 86900; 86901; A9270; J1050; J2405; J2550; J2590; J7120

== ENCOUNTER 2024-05-17 13:22 | Emergency (ER) | payer OTHER, SELFPAY ==
--- NOTE | ~2024-05-17 | CT_ITS ---
Non-contrast Head CT History: Seizure Technique: Axial non-contrast imaging of the brain was performed. Dose reduction technique was used on this scan by utilizing automated exposure control and iterative reconstruction technique. The dose -length product (DLP) was 605.33 mGy-cm. Findings: There is no evidence of intracranial hemorrhage, mass lesion, or acute infarct. Brain par enchyma appears normal. The ventricles and subarachnoid spaces are normal in size. The calvarium ap pears normal. The visualized paranasal sinuses and mastoid air cells are clear. Impression: No significant abnormality seen. Reviewed, dictated and finalized at location . Impression: No significant abnormality seen.
[2024-05-17 13:19] VITALS: BP 116/70; PULSE 64; RESP 16; TEMP 36.8; O2SAT 95
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
[2024-05-17] MEDS: ONDANSETRON INJ 4 MG/2 ML VIAL IV PUSH (14:02)
[2024-05-17] MEDS: levETIRAcetam 1500MG/NACL100ML 1,500 MG/100 ML BAG 400 MG IVPB (14:04)
[2024-05-17] MEDS: LACTATED RINGERS 1,000 ML 999 ML IV CONT (14:04)
[2024-05-17 14:06] VITALS: BP 106/68; PULSE 54; RESP 18; O2SAT 98
--- NOTE | 2024-05-17 14:07 | PC.NURSE ---
Patient asleep at this time.
--- NOTE | 2024-05-17 14:15 | ECG_ITS ---
Test Date: 2024-05-17 13:39:43 Measurements Intervals [place] Rate: 63 P: 52 VA: 148 QRS: 69 QRSD: 79 T: 25 QT: 378 QTc: 389 Interpretive Statements SINUS RHYTHM WITH SINUS ARRHYTHMIA NORMAL ECG No previous ECG available for comparison Electronically Signed On 05-17-2024 15:08:05 CDT by Prudencio Zhang M.D.
[2024-05-17 14:17] LABS: Basophils Absolute Auto 0.1 K/mm3 (0.0-0.1); Basophils Percent Auto 0.6 % (0.2-1.2); Eosinophils Absolute Auto 0.1 K/mm3 (0-0.3); Eosinophils Percent Auto 0.8 % (0-4.4); Hematocrit 36.7 % (37.0-47.0); Hemoglobin 11.8 g/dL (12.0-15.0); Immature Granulocyte Absolute 0.04 K/mm3 (0.00-0.031); Immature Granulocyte Percent A 0.4 % (0-0.5); Lymphocytes Absolute Auto 3.36 K/mm3 (0.9-3.2); Lymphocytes Percent Auto 31.1 % (18.3-44.2); Mean Corpuscular HGB Conc 32.2 g/dl (32-36); Mean Corpuscular Hemoglobin 25.8 pg (26-34); Mean Corpuscular Volume 80.1 fl (80-100); Mean Platelet Volume 10.7 fl (7.4-10.4); Monocytes Absolute Auto 0.6 K/mm3 (0.1-0.6); Monocytes Percent Auto 5.8 % (2.6-8.5); Neutrophils Absolute Auto 6.6 K/mm3 (1.3-6.7); Neutrophils Percent Auto 61.3 % (45.5-73.1); Platelet Count Result 280 k/mm3 (150-375); Red Blood Count 4.58 M/mm3 (4.2-5.4); Red Cell Distribution Width 18.1 % (11.5-14.5); White Blood Count 10.8 K/mm3 (4.5-10.0)
[2024-05-17 14:24] LABS: Prothrombin Time 13.6 Seconds (11.1-14.7)
[2024-05-17 14:25] LABS: Partial Thromboplastin Time 26.6 Seconds (22.3-36.8)
[2024-05-17] MEDS: LORazepam INJ (*CRX) 2 MG/ML VIAL IV PUSH (14:27)
[2024-05-17 14:30] VITALS: BP 110/75; PULSE 60; RESP 19; O2SAT 97
[2024-05-17 14:30] LABS: Alanine Aminotransferase 16 U/L (6-35); Albumin Level 4.2 g/dL (3.5-5.1); Alkaline Phosphatase 78 U/L (38-126); Anion Gap 13 mmol/L (4-12); Aspartate Amino Transferase 22 U/L (14-36); Bilirubin,Total 0.4 mg/dL (0.2-1.3); Blood Urea Nitrogen 8 mg/dL (7-17); Calcium 8.8 mg/dL (8.4-10.2); Carbon Dioxide 18 mmol/L (22-30); Chloride 111 mmol/L (98-107); Creatine Kinase 120 U/L (30-135); Estimated CRCL calculation 114 ml/min; Estimated Glomerular Filt Rate > 60; Glucose 90 mg/dL (65-110); Magnesium 1.9 mg/dL (1.6-2.3); Potassium 3.7 mmol/L (3.4-5.0); Sodium 142 mmol/L (137-145)
[2024-05-17 14:31] LABS: Lactic Acid Reflex 1.5 mmol/L (0.7-2.0)
[2024-05-17 14:31] LABS: Acetaminophen < 10 ug/mL (10-30); Ethanol 146 mg/dL (<10); Salicylate < 1.0 mg/dL (2-20)
[2024-05-17 14:45] LABS: Beta HCG Quantitative < 2.39 mIU/ML
--- NOTE | 2024-05-17 15:12 | PC.NURSE ---
This RN went to check on patient and she was sitting in the stretcher and had removed her IV's. patient A&Ox4 and states she just wants to sign out AMA and go home . patient's at bedside. this RN spoke to provider and he was okay with patient signing out AMA. Patient verbalized understanding of risks of leaving against medical advice and signed the paperwork. patient ambulated out of department with .
== END 2024-05-17 15:19 | disposition left against medical advice (07) ==
LOC: ANHED 14:13
PROVIDERS: Emergency Provider Student in an Organized Health Care Education/Training Program
DX: R56.9 Unspecified convulsions (principal); F17.210 Nicotine dependence, cigarettes, uncomplicated
CPT/HCPCS: 36415; 70450; 80048; 80053; 80307; 82550; 82947; 83605; 83735; 84702; 85025; 85610; 85730; 93005; 96361; 96365; 96374; 96375; 99284; A9270; J1885; J1953; J2060; J2405; J7120

== ENCOUNTER 2024-05-17 16:18 | Emergency (ER) | payer OTHER, SELFPAY ==
[2024-05-17] VITALS (7 sets, daily range): BP systolic 94–122; BP diastolic 49–76; PULSE 50–63; RESP 12–22; TEMP 36.1; O2SAT 97–99
[2024-05-17 17:40] LABS: Basophils Absolute Auto 0.1 K/mm3 (0.0-0.1); Basophils Percent Auto 0.5 % (0.2-1.2); Eosinophils Absolute Auto 0.1 K/mm3 (0-0.3); Eosinophils Percent Auto 0.8 % (0-4.4); Hematocrit 35.6 % (37.0-47.0); Hemoglobin 11.1 g/dL (12.0-15.0); Immature Granulocyte Absolute 0.03 K/mm3 (0.00-0.031); Immature Granulocyte Percent A 0.3 % (0-0.5); Lymphocytes Absolute Auto 2.73 K/mm3 (0.9-3.2); Lymphocytes Percent Auto 29.7 % (18.3-44.2); Mean Corpuscular HGB Conc 31.2 g/dl (32-36); Mean Corpuscular Hemoglobin 25.1 pg (26-34); Mean Corpuscular Volume 80.5 fl (80-100); Mean Platelet Volume 10.9 fl (7.4-10.4); Monocytes Absolute Auto 0.6 K/mm3 (0.1-0.6); Monocytes Percent Auto 6.2 % (2.6-8.5); Neutrophils Absolute Auto 5.7 K/mm3 (1.3-6.7); Neutrophils Percent Auto 62.5 % (45.5-73.1); Platelet Count Result 255 k/mm3 (150-375); Red Blood Count 4.42 M/mm3 (4.2-5.4); White Blood Count 9.2 K/mm3 (4.5-10.0)
[2024-05-17 17:49] LABS: Ethanol 85 mg/dL (<10); Glucose 93 mg/dL (65-110)
[2024-05-17 17:50] LABS: Anion Gap 11 mmol/L (4-12); Blood Urea Nitrogen 7 mg/dL (7-17); Calcium 8.5 mg/dL (8.4-10.2); Carbon Dioxide 20 mmol/L (22-30); Chloride 110 mmol/L (98-107); Estimated CRCL calculation 115 ml/min; Estimated Glomerular Filt Rate > 60; Glucose 93 mg/dL (65-110); Potassium 3.8 mmol/L (3.4-5.0); Sodium 141 mmol/L (137-145)
--- NOTE | 2024-05-17 18:15 | ED.GENADULT ---
HPI - General Adult General Chief complaint: Unspecified Stated complaint: seizures History of Present Illness HPI narrative: This is a 23-year-old female who was just discharged against medical advice from this facility 30 minutes prior. Patient was being evaluated for potential first-time seizure. Her workup at that time was largely unremarkable but she left against medical advice without completing the evaluation and before her final studies were resulted. Patient left accompanied by her . They drove to a nearby gas station down the road and she felt unwell in laid on the ground. called EMS for assistance and they brought her back to the emergency department. There was no loss consciousness or further seizure activity. Patient is presently awake alert oriented and at her baseline. She states she has not been feeling well after some of the medications he received earlier in feels groggy. She did receive Ativan and Keppra earlier which likely contributed to this. She denies any new symptoms aside from headache. Denies any new ingestions or traumas. This is corroborated by family at bedside. Please refer to previous ER documentation for further evaluation of her visit earlier today. Related Data Home Medications Medication Instructions Recorded Confirmed vit no.95-ferrous 1 tablet PO DAILY 10/24/21 01/22/24 fumarate 28 mg-folic acid 800 mcg tablet () acyclovir 800 mg tablet 800 mg PO DAILY 12/06/21 01/22/24 Allergies Allergy/AdvReac Type Severity Reaction Status Date / Time naproxen Allergy Rash Verified 05/17/24 13:29 sulfamethoxazole Allergy Rash Verified 05/17/24 13:29 [From Bactrim] trimethoprim [From Bactrim] Allergy Rash Verified 05/17/24 13:29 LIVE VACCINES Allergy Severe Other Uncoded 05/17/24 13:29 Review of Systems Review of Systems: As reviewed above in HPI [facility] Past Medical History Medical History GERD (gastroesophageal reflux disease) IUP (intrauterine ), incidental Social History Social History Smoking packs per day: 0.5 Smoking cigarettes per day: 10.0 Years smoked: 10 Smoking pack-years: 5.00 Smoking status: Current every day smoker Tobacco type: cigarettes Substance use: current Do You Feel Safe in your Home?: Yes Lack of Transportation: No Lack of Food: Never True Current Housing: I Have Housing Concerned About Future Housing: No Difficulty Paying Gas/Electric Bills: No Difficulty Paying for Meds: No Currently Unemployed: No Education: Grade School Difficulty w/ Childcare or Family Care: No Gender identity (if verbalized by the patient): Female Spiritual care concerns: No Exam Narrative: GENERAL: [Well-appearing, well-nourished, and in no acute distress.] Answer all questions appropriately. HEAD: [Normocephalic, atraumatic.] EYES: [PERRLA and EOMI.] ENT: Nares clear, no rhinorrhea or epistaxis. Mucous membranes moist. NECK: Supple. CHEST: [Clear to auscultation. No respiratory distress.] HEART: [Regular rate and rhythm]. No murmur heard. [Normal peripheral pulses.] ABDOMEN: [Soft, nondistended], [nontender], [No rigidity or guarding] EXTREMITIES: Normal range of motion. [No edema.] SKIN: Warm, dry, no rash. NEURO: [No focal deficits]. Alert and oriented [x3.] No strength or sensory deficits. Moving all extremities. PSYCH: [Normal mood and affect.] Course Vital Signs Vital signs: Vital Signs Temperature 36.1 C L 05/17/24 16:19 Pulse Rate 60 05/17/24 16:19 Respiratory Rate 12 05/17/24 16:19 Blood Pressure 101/66 05/17/24 16:19 Pulse Oximetry 98 05/17/24 16:19 Oxygen Delivery Room Air 05/17/24 16:19 Temperature 36.1 C L 05/17/24 16:19 Pulse Rate 50 L 05/17/24 17:46 Respiratory Rate 19 05/17/24 17:46 Blood Pressure 11
[2024-05-17] MEDS: ACETAMINOPHEN 500 MG TABLET 1000 MG PO (18:18)
[2024-05-17] MEDS: KETOROLAC 15 MG/ML VIAL (*BKC) IV PUSH (18:19)
== END 2024-05-17 18:37 | disposition home or self-care (01) ==
PROVIDERS: Emergency Provider Student in an Organized Health Care Education/Training Program
DX: R56.9 Unspecified convulsions (principal)
CPT/HCPCS: 36415; 80048; 80307; 82947; 85025; 96374; 99284; A9270; J1885

== ENCOUNTER 2024-11-04 12:32 | Outpatient (CLI) | payer OTHER, SELFPAY ==
[2024-11-04 14:28] LABS: Basophils Absolute Auto 0.1 K/mm3 (0.0-0.1); Basophils Percent Auto 0.8 % (0.2-1.2); Eosinophils Absolute Auto 0.2 K/mm3 (0-0.3); Eosinophils Percent Auto 2.2 % (0-4.4); Hematocrit 37.2 % (37.0-47.0); Hemoglobin 11.9 g/dL (12.0-15.0); Immature Granulocyte Absolute 0.04 K/mm3 (0.00-0.031); Immature Granulocyte Percent A 0.4 % (0-0.5); Lymphocytes Absolute Auto 2.61 K/mm3 (0.9-3.2); Lymphocytes Percent Auto 27.4 % (18.3-44.2); Mean Corpuscular Volume 87.5 fl (80-100); Mean Platelet Volume 11.4 fl (7.4-10.4); Monocytes Absolute Auto 0.7 K/mm3 (0.1-0.6); Monocytes Percent Auto 7.2 % (2.6-8.5); Neutrophils Absolute Auto 5.9 K/mm3 (1.3-6.7); Platelet Count Result 239 k/mm3 (150-375); Red Blood Count 4.25 M/mm3 (4.2-5.4); White Blood Count 9.5 K/mm3 (4.5-10.0)
== END 2024-11-04 12:33 | disposition home or self-care (01) ==
LOC: ANHSURGERY 12:37
PROVIDERS: Visit Provider Obstetrics & Gynecology
DX: N92.6 Irregular menstruation, unspecified (principal)
CPT/HCPCS: 36415; 85025; 86850; 86900; 86901

== ENCOUNTER 2024-11-08 02:41 | Day surgery (SDC) | payer OTHER, SELFPAY ==
[2024-10-31 10:25] VITALS: BMI 27.9
--- NOTE | 2024-10-31 10:26 | PC.NURSE ---
Report to the Outpatient Waiting Room, entrance under the green pavilion located off [facility], at time _1130_ on date _[id number]_. Planned Procedure Time: _130pm_.? Time changes happen often and if your time is changed the preop area will call you the afternoon before. - You and your visitor will be asked to self-screen and do not enter if you have any COVID symptoms. Please call surgeon if you need to reschedule. - A mask is optional within the hospital at this time. Patients may have clear liquids (water, carbonated beverages, clear teas, apple juice) until 3 hours prior to surgery with a maximum of 20 ounces. - No food from midnight until time of surgery and no smoking. This includes no chewing gum, candy or mints. Take only the following medications with a SIP of water on the morning of surgery: _None____ DO NOT STOP ANY OF YOUR OTHER PRESCRIPTION MEDICATIONS PRIOR TO SURGERY EXCEPT THE FOLLOWING Medications to discontinue per physician ___None Please no make-up, nail american, hairspray, perfume, deodorant, or body powder the day of surgery.? No jewelry (including any body piercings) or valuables the day of surgery, leave them at home.? Please take a shower or bath the night before, or the morning of, surgery with an antibacterial soap.? Wear comfortable, loose fitting clothing. - Jewelry must be removed prior to entering the operating room.? Rings and piercings that are not removed may be cut off. - The hospital will not accept responsibility for valuables.? - Please leave all valuables, including medications, at home the day of surgery. If you are going home after surgery, a licensed six horse hitch driver must drive you home.? - NO public transportation without another adult if you receive anesthesia. - We recommend that an adult stay with you for 24 hours following discharge. - We also recommend that you do not drive, make important decision, drink alcoholic beverages, or take any drugs that were not prescribed by your health care provider for at least 24 hours after your discharge time. Follow any additional instructions given to you from your surgeon. Telephone instructions given to _Yumiko___and asked if any additional questions and then verbalized understanding. Patient advised to call surgeon office or pre surgery nurse liaison [phone] if any additional questions.
--- NOTE | 2024-11-05 07:23 | P.HP_ITS ---
H&P: HPI History of Present Illness Date/Time: 11/05/24 07:23 Chief Complaint: Pelvic pain/excessive bleeding/pelvic congestion Narrative: This is a 24-year-old multiparous patient admitted for robotic hysterectomy bilateral salpingectomy secondary to vascular congestion dyspareunia severe pain and bleeding. She has had 5 previous deliveries. She understands this will make her permanently infertile. Her ovaries will remain risks and benefits reviewed in great detail. She had all questions answered received the A[employer]G handout entitled hysterectomy as well as the Rylie handout Review of Systems Review of Systems: As reviewed above in HPI [facility] Past Medical History Medical History GERD (gastroesophageal reflux disease) IUP (intrauterine ), incidental Social History Social History Smoking packs per day: 0.5 Smoking cigarettes per day: 10.0 Years smoked: 10 Smoking pack-years: 5.00 Smoking status: Current every day smoker Tobacco type: cigarettes Substance use: current Substance use type: marijuana Other substance usage details: Twice a day. Do You Feel Safe in your Home?: Yes Lack of Transportation: No Lack of Food: Never True Current Housing: I Have Housing Concerned About Future Housing: No Difficulty Paying Gas/Electric Bills: No Difficulty Paying for Meds: No Currently Unemployed: No Education: Decline to Answer Difficulty w/ Childcare or Family Care: No Living arrangements: with family Gender identity (if verbalized by the patient): Female Spiritual care concerns: No Meds Home Medications and Allergies Home Medications ?Medication ?Instructions ?Recorded ?Confirmed ?Type acyclovir 800 mg tablet 800 mg PO DAILY 12/06/21 10/31/24 History Allergies Allergy/AdvReac Type Severity Reaction Status Date / Time naproxen Allergy Rash Verified 10/31/24 10:19 sulfamethoxazole (From Allergy Rash Verified 10/31/24 10:19 Bactrim) trimethoprim (From Bactrim) Allergy Rash Verified 10/31/24 10:19 LIVE VACCINES Allergy Severe Other Uncoded 10/31/24 10:19 Exam Const: General: cooperative, healthy appearing and comfortable Nutritional Appearance: average body habitus Orientation/consciousness: oriented to person, oriented to place and oriented to time HENMT: Head: normal to inspection Resp: Effort & Inspection: normal respiratory effort Cardio: Rate: regular rate Rhythm: regular rhythm Heart sounds: S1 normal heart sound present and S2 normal heart sound present GI: Inspection: normal to inspection : External Female Exam: normal external appearance Speculum Exam - Vagina: normal appearance of the vagina Speculum Exam - Cervix: normal appearance of the cervix Bimanual exam- vagina & uterus: boggy, enlarged and Uterine tenderness Bimanual Exam- Adnexa, other: normal adnexae Assessment and Plan Assessment and plan (1) Pelvic pain: Code(s): R10.2 - Pelvic and perineal pain Status: Acute (2) Pelvic congestion: Code(s): N94.89 - Other specified conditions associated with female genital organs and menstrual cycle Status: Acute (3) Enlarged uterus: Code(s): N85.2 - Hypertrophy of uterus Status: Acute (4) Excessive bleeding: Code(s): R58 - Hemorrhage, not elsewhere classified Status: Acute Plan Proceed with robotic total vaginal hysterectomy and bilateral salpingectomy
[2024-11-08] VITALS (10 sets, daily range): BP systolic 104–138; BP diastolic 50–76; PULSE 46–63; RESP 12–16; TEMP 36.4–36.8; O2SAT 92–100
--- OUTSIDE RECORDS SUMMARY | 2024-11-08 02:45 | XMS_ITS | Data Portability ---
Author Organization [facility] Address [address] [place] [address] Assessment No assessment recorded. Plan of Treatment Reminders Order Date Submit Date Provider Last Modified By Organization Details Last Modified Time Details Appointments None recorded. Lab estradiol, serum 2019 020 [facility] ([facility]), [address] [place] [address] [address], [place], [address], 0 16:18:23 FSH (follicle- stimulatin g hormone), serum 2019 020 [facility] ([facility]), [address] [place] [address] [address], [place], [address], 0 16:18:23 lh (luteinizi ng hormone), serum 2019 020 [facility] ([facility]), [address] [place] [address] [address], [place], [address], 0 16:18:23 progestero ne, serum 2019 020 [facility] ([facility]), [address] [place] [address] [address], [place], [address], 0 16:18:23 prolactin, serum 2019 020 [facility] ([facility]), [address] [facility] [address], [place], [address], 0 16:18:24 TSH, serum or plasma 2019 [facility] ([facility]), [address] [facility] [address], [place], [address], 0 16:18:24 test, urine 2019 020 [email or web address] [place], [address], [address], [place], [address], 0 21:30:25 Referral None recorded. Procedures None recorded. Surgeries None recorded. Imaging US, pelvis, complete 2019 [facility] [place], [address], [place], [address], 1 05:05:59 Medication Orders None recorded. Patient TargetsNo targets recorded. Patient InstructionsNo instructions recorded. Reason for Referral None Reported. Results Created Date Observation Date Name Description Value Unit Range Abnormal Flag Note LastModifiedBy Organization Detail LastModifiedTime 05/13/20 20 05/14/2020 lh + FSH, serum luteinizing hormone 8.40 mIU/m L LH Refer ence Range Men: 1.7 - 8.6 Women : Folli cular phase 2.4 - 12.6 Ovula tion phase 14.0 - 95.6 Lutea l phase 1.0 - 11.4 Postm enopa use 7.7 - 58.[address] [facility]) [address] [facility] [address], [place], [address], 05/14/2020 06:58:57 05/13/20 20 05/14/2020 lh + FSH, serum FSH 8.56 mIU/m L FSH Refer ence Range Men: 1.5 - 12.4 Women : Folli cular phase 3.5 - 12.5 Ovula tion phase 4.7 - 21.5 Lutea l phase 1.7 - 7.7 Postm enopa use 25.8 - 134.8 Not Available [facility] ([facility]) [address] [facility] [address], [place], [address], 05/14/2020 06:58:57 05/13/20 20 05/14/2020 prola ctin, serum prolactin 13.10 NG/mL 4.79-[address] [facility] ([facility]) [facility] [address], [place], [address], 05/14/2020 06:58:57 05/13/20 20 05/14/2020 proge stero ne, serum progesterone 0.14 NG/mL Proge stero ne Refer ence Range Healt hy women Folli cular phase 0.057 - 0.893 Ovula tion phase 0.121 - 12.0 Lutea l phase 1.83 - 23.9 Postm enopa use <0.05 - 0.126 Healt hy pregn ant women 1st trime ster 11.0 - 44.3 2nd trime ster 25.4 - 83.3 3rd trime ster 58.7 - [address] ([facility]) [facility] [address], [place], [address], 05/14/2020 06:58:57 05/13/20 20 05/14/2020 estra diol, serum estradiol 46 pg/mL Estra diol Refer ence Range Healt hy women Folli cular phase 12.4 - 233 Ovula tion phase 41.0 - 398 Lutea l phase 22.3 - 341 Postm enopa use <5 - 138 Healt hy pregn ant women 1st trime ster 154 - 3243 2nd trime ster 1561 - 26915 3rd trime ster 8525 - >3000 [address] [facility] ([facility]) [facility] [address], [place], [address], 05/14/2020 06:58:58 05/13/20 20 05/14/2020 TSH, serum or plasm a TSH 2.59 mU/L 0.27-4 .[address] ([facility]) [address] [facility] [address], [place], [address], 05/14/2020 06:58:58 05/13/20 20 05/14/2020 T4, free, serum thyroxine free (free T4) 1.05 NG/dL 0.86-1 .76 [address] Available [facility] ([facility]) [address], [place], [address], 05/14/2020 06:58:59 05/13/20 20 05/13/2020 pregn rosi test, urine HCG negati ve Not Available [place] [address], [place], [address], 05/13/2020 17:59:38 Result Notes None recorded. Medical Equipment None Reported. Allergies Allergen ID Allergen Name Allergen Category Reaction Reaction Severity Criticality Documentation Date Start Date Code Code System Note Provider Name and Address Organization Details Recorded Time 1580 Bactrim medicatio n Not available Not available Not available 05/13/2020 52580 9 RxNorm Laurence Parikh [place], [place] - [facility] 0 17:45:12 Medications Name Sig Start Date Stop Date Status Note LastModified by Organization Details LastModified Time amoxicillin 500 mg capsule 05/13 completed Not Available Not Available Not Available prednisone 10 mg tablet 05/13 completed Not Available Not Available Not Available ibuprofen 800 mg tablet 05/13 completed Not Available Not Available Not Available ondansetron HCl 4 mg tablet 05/13 completed Not Available Not Available Not Available prednisone 20 mg tablet 05/13 completed Not Available Not Available Not Available penicillin V potassium 500 mg tablet 05/13 completed Not Available Not Available Not Available Condoms-Adam Lubricated 05/13 completed Not Available Not Available Not Available lorazepam 1 mg tablet 05/13 completed Not Available Not Available Not Available ibuprofen 600 mg tablet 05/13 completed Not Available Not Available Not Available albuterol sulfate HFA 90 mcg/actuation aerosol inhaler active Not Available Not Availa ble Not Available ondansetron 4 mg disintegrating tablet 05/13 completed Not Available Not Available Not Available nitrofurantoin monohydrate/macr ocrystals 100 mg capsule 05/13 completed Not Available Not Available Not Available Vitals Date Recorded Body height Body mass index (BMI) Body weight Systolic blood pressure Diastolic blood pressure Provider Name and Address Organization Details Last Updated DateTime 05/13/2020 165.1 cm 32.3 kg/m2 62451.92 g 112 mm[Hg] 66 mm[Hg] Laurence Parikh [facility] 0 17:45:00 Social History None recorded. Functional Status None recorded. Mental Status None recorded. Family History Relationship Description Onset Age of this Age Resolved Age Notes LastModified by Organization Details LastModified Time Mother Asthma [email or web address] Not available 05/13/2020 17:53:54 Mother Disorder of thyroid gland [email or web address] Not available 2019 11:13:22 Maternal Grandmother Asthma [email or web address] Not available 03/2020 11:11:41 Maternal Grandmother Malignant tumor of breast [email or web address] Not available 2019 11:12:13 Maternal Grandmother Diabetes mellitus [email or web address] Not available 2019 11:12:39 Maternal Grandmother Hypertensive disorder [email or web address] Not available 2019 11:13:00 Maternal Grandmother Disorder of thyroid gland [email or web address] Not available 2019 11:13:22 Maternal Uncle Asthma [email or web address] Not available 05/14/20 20 11:11:49 Maternal Uncle Hypertensive disorder [email or web address] Not available 2019 11:13:00 Paternal Grandmother Diabetes mellitus [email or web address] Not available 2019 11:12:39 Medical History No medical history recorded. Gynecological History Statement/Question Response STIs/STDs Y Abnormal Pap N Current Control Method Implant 11 Obstetrics History GPAL:G 0 P 0 0 0 0 Past Encounters Encounter ID Performer Location Encounter Start Date Encounter Closed Date Diagnosis/Indication Diagnosis SNOMED-CT Code Diagnosis ICD10 Code Diagnosis Note [id number] Jose Antonio Lugo MD [place] [address] [address] 05/13/2020 16:16:21 05/14/2020 11:18:33 Pain in pelvis 75088811 R10.2 Abnormal u terine bleeding 8965023113 9100 N93.9 this patient is a 19-year-ol d female with abnormal uterine bleeding. She has Nexplanon placed. We started a pack of low-dose oral contracept amador pills to control her bleeding. We will continue the evaluation . She return for labs. She return for pelvic ultrasound to discuss treatment options. Health Concerns Section Related Observation LastModified by Organization Detai ls LastModified Time None Recorded Concern Status LastModified by Organization Details LastModified Time None Recorded Advance Directives Directive None Recorded Payers Encounter Date Sequence Insurance Name Policy Number Policy Reza Covered Member ID Reza Member ID Guarantor Name 05/13/2020 1 [facility] - DOS PRIOR TO 2021 (MEDICAID REPLACEMENT - HMO) Yumiko Rice [id number] Yumiko Rice Notes Date Note Type Note Provider Name and Address Organization Details Recorded Time 05/13/2020 text/html this patient is a 19-year-old female with a prolonged vaginal bleeding. She has a Nexplanon for contraception. She had regular periods up until about 2 months ago. She then began having irregular bleeding. She has had 2 episodes of prolonged bleeding. One episode lasting 2 weeks. She denies any pelvic pain. She denies any abnormal vaginal discharge. She denies any pain with intercourse. She denies any nausea, vomiting, fever, chills. She denies any history of sexual transmitted disease. Jose Antonio Lugo MD [address], [place], [address], [facility] 05/13/2020 21:51:12 OBGyn Episode Ob Episode Information Episode Created Date Number of Fetuses Patient Bloodtype Patient rh Status Prepregnancy Weight lbs Domestic Partner Domestic Partner Phone Father Name [facility] Status 05/13/20 20 1 CLOSED Fetus Data First Name Last Name Admitted to NICU Weight (g) Sex Living Outcome Pediatric Complications Fetus ID Race Codes Race Delivery Type 3458.63 [id number] Vaginal Delivery Jarrett Calculation Initial Jarrett Date Initial Exam Date Initial Exam Provider Initial Ultrasound Date Last Menstrual Period Date Ultra Sound Weeks Gestation 0 Eighteen To Twenty Week Jarrett Update Ultra Sound Date Fundal Height At Umbil Quickening Date Ultra Sound Latest Weeks Gestation Final Jarrett Confirmed By Final Jarrett Confirmed Date Final Jarrett Date Ultra Sound Latest Days Gestation 0 0 Menstrual History Last Menstrual Date Menses Monthly On Bcp Conception Prior Menses Frequency Hcg Plus Date Menarche Onset Age Delivery Information Delivery Date Delivery Type Labor Anesthesia Weeks Gestation Incision Type Labor Labor Length Hrs Delivered By Post Complications Tubal Sterilization Discharge Date Comments 9 Prudencio Discharge Information Feeding Method Contraceptive Method Maternal HG B and HCT Levels Ob Episode Information Episode Created Date Number of Fetuses Patient Bloodtype Patient rh Status Prepregnancy Weight lbs Domestic Partner Domestic Partner Phone Father Name [facility] Status 05/13/20 20 1 CLOSED Fetus Data First Name Last Name Admitted to NICU Weight (g) Sex Living Outcome Pediatric Complications Fetus ID Race Codes Race Delivery Type 3005.04 [phone] F [id number] Vaginal Delivery Jarrett Calculation Initial Jarrett Date Initial Exam Date Initial Exam Provider Initial Ultrasound Date Last Menstrual Period Date Ultra Sound Weeks Gestation 0 Eighteen To Twenty Week Jarrett Update Ultra Sound Date Fundal Height At Umbil Quickening Date Ultra Sound Latest Weeks Gestation Final Jarrett Confirmed By Final Jarrett Confirmed Date Final Jarrett Date Ultra Sound Latest Days Gestation 0 0 Menstrual History Last Menstrual Date Menses Monthly On Bcp Conception Prior Menses Frequency Hcg Plus Date Menarche Onset Age Delivery Information Delivery Date Delivery Type Labor Anesthesia Weeks Gestation Incision Type Labor Labor Length Hrs Delivered By Post Complications Tubal Sterilization Discharge Date Comments 8 Jo Ann Discharge Information Feeding Method Contraceptive Method Maternal HG B and HCT Levels
--- NOTE | 2024-11-08 07:10 | WPDHPUPDATE1 ---
History and Physical Update Update Date/Time: 11/08/24 07:10 History and Physical has been reviewed, including an updated exam of the patient. There are NO changes in the patient's condition. Risks, benefits, and alternatives have been discussed and questions answered. Patient agrees to proceed with procedure.
[2024-11-08] MEDS: ACETAMINOPHEN 500 MG TABLET 1000 MG PO ×3 (12:06→23:46)
--- NOTE | 2024-11-08 12:35 | P.PNAN_ITS ---
Anes - Initial Pre Proc Eval Procedure: Operation Date: 11/08/24 13:30 Proposed Procedures p Robotic Assisted Total Vaginal Hysterectomy with Bilateral Salpingectomy - Walt Hernandez MD Date/Time: 11/08/24 12:35 Surgeon: Walt Hernandez MD Pre Op Diagnosis: pelvic pain, irregular bleeding, dyspareunia Patient Data Age: 24 Gender: F Height: 1.68 m Weight: 78.6 kg Last Vital Signs Temp 36.4 C L 11/08/24 11:40 Pulse 63 11/08/24 11:40 Resp 16 11/08/24 11:40 BP 104/68 11/08/24 11:40 Pulse Ox 98 11/08/24 11:40 Allergies Allergy/AdvReac Type Severity Reaction Status Date / Time naproxen Allergy Rash Verified 11/08/24 12:10 sulfamethoxazole (From Allergy Rash Verified 11/08/24 12:10 Bactrim) trimethoprim (From Bactrim) Allergy Rash Verified 11/08/24 12:10 LIVE VACCINES Allergy Severe Other Uncoded 11/08/24 12:10 Home Medications ?Medication ?Instructions ?Recorded ?Confirmed ?Type acyclovir 800 mg tablet 800 mg PO DAILY 12/06/21 10/31/24 History hydrocodone 5 mg-acetaminophen 325 1 tablet PO Q4H PRN pain #30 tabs 11/08/24 Rx mg tablet Patient hx anesthesia problems: none Family hx anesthesia problems: none Results Review: All pre-operative results and documents have been reviewed as part of the pre- operative evaluation. [facility] Past Medical History Medical History GERD (gastroesophageal reflux disease) IUP (intrauterine ), incidental Social History Social History Smoking packs per day: 0.5 Smoking cigarettes per day: 10.0 Years smoked: 10 Smoking pack-years: 5.00 Smoking status: Current every day smoker Tobacco type: cigarettes Substance use: current Substance use type: marijuana Other substance usage details: Twice a day. Do You Feel Safe in your Home?: Yes Lack of Transportation: No Lack of Food: Never True Current Housing: I Have Housing Concerned About Future Housing: No Difficulty Paying Gas/Electric Bills: No Difficulty Paying for Meds: No Currently Unemployed: No Education: Decline to Answer Difficulty w/ Childcare or Family Care: No Living arrangements: with family Gender identity (if verbalized by the patient): Female Spiritual care concerns: No Anes - Eval Final PreProcedure Day of Procedure 11/08/24 12:35 Patient weight: normal Heart: regular rate and rhythm Lungs: clear to auscultation Airway: Mallampati scale class 1 Neurological: alert and oriented Last oral intake: >/= 8 hours ASA classification: II Emergent: no Anesthetic plan: proceed Anesthesia type and monitoring: general ETT and standard monitoring Results Review: All pre-operative results and documents have been reviewed as part of the pre- operative evaluation. Informed Consent: The patient's anesthetic plan and its attendant risks and benefits were discussed with the patient/family/POA. Questions were solicited and answers provided to the satisfaction of the patient/family/POA.
[2024-11-08] MEDS: ceFAZolin 2 GM/D5W 50 ML 2 GM/50 ML BAG IVPB (12:45)
[2024-11-08] MEDS: LACTATED RINGERS 1,000 ML 30 ML IV CONT ×2 (12:47→14:18)
--- NOTE | 2024-11-08 13:37 | W.PM.PROC2 ---
Procedure Note - Detailed Date of Procedure 11/08/24 Pre-op Diagnosis pelvic pain, irregular bleeding, dyspareunia Post-op Diagnosis Same Procedure Performed Robotic total vaginal hysterectomy and bilateral salpingectomy Surgeon Walt Hernandez MD Anesthesia General Indications 24-year-old 5 para 5 with severe pain and bleeding Findings Markedly enlarged uterus with many tortuous vessels normal-appearing ovaries and tubes Description of Procedure The patient was prepped draped in normal sterile fashion placed in the dorsal lithotomy position. Under excellent general trach anesthesia weighted speculum placed in posterior fornix vagina. Anterior lip of the cervix grasped with a single-tooth tenaculum uterus sounded to 10cm. Serial dilatation with fragmented dilators performed followed by passes the 8mm trocar after the abdomen was filled with CO2 gas. Patient placed in 20? Trendelenburg right left lateral quadrant incisions made. Right upper quadrant incision made and 8mm trocar advanced under direct visualization assuring injury. The robot was docked. Attention was turned to the abdomen. Supra umbilical incision made the Veress needle passed in the abdomen. Abdomen filled with CO2 gas [id number]. The 8mm trocar advanced in the abdomen. Downside visualized no injury seen. Patient placed in Trendelenburg and right left lateral quadrant incisions made. 8mm trocars advanced under direct visualization assuring no injury. A right upper quadrant incision made and the 8mm trocar advanced under direct visualization. The robot was docked. Attention was turned to the family court counsellor. The left round ligament was grasped, burned, cut. Anterior bladder flap was formed after the round ligament was grasped, burned, cut. This was sharply dissected and dissected away caudally to the opposite round ligament which was clamped, burned, cut. Next the left fallopian tube was grasped and was sharply dissected away from the ovarian complex and left in its uterine origin. This was repeated remove the right tube on right side. The left utero-ovarian ligament was skeletonized to conserve the left ovary was clamped, burned, cut and brought to level of previously cut round ligament. Similar fashion the right utero liver ovarian ligament was clamped, burned, cut and brought to level of previously cut round ligament on the right conserving the left right ovary. The cardinal broad ligaments on the left were then serially skeletonized clamping burning cutting and bringing this down the lateral edge until the large tortuous uterine vessels could be seen these were individually clamped, burned, cut. In similar fashion the cardinal broad ligaments on the right were serially skeletonized clamping burning cutting and bringing this down the lateral edge until the uterine vessels could be seen on the right. These were clamped, burned, cut. Blanching the uterus was noted and a colpotomy incision made. Cervix uterus and tubes removed through the vagina. The vagina then close to continuous running 0V lock from lateral edge to lateral edge back to the midline. Irrigation undertaken until clear blood loss estimated 25cc. Robot was undocked. The gas removed from the abdomen. The trocars removed and incisions closed with 4 Monocryl and glue. The patient was awakened went recovery in satisfactory condition. All sponge, needle, instrument counts were correct. There were no immediate, applications noted Estimated Blood Loss 25 Drains No Packing No Pathology Yes Complications No immediate complications Condition Stable Disposition PACU
--- NOTE | 2024-11-08 13:41 | P.DS_ITS ---
DS: Admitting Diagnosis Discharge Date 11/09/2024 Admitting Diagnosis Enlarged uterus/pelvic pain/vaginal bleeding DS: Discharge Diagnosis Discharge Diagnosis (1) Pelvic pain: Code(s): R10.2 - Pelvic and perineal pain Status: Acute (2) Enlarged uterus: Code(s): N85.2 - Hypertrophy of uterus Status: Acute (3) Excessive bleeding: Code(s): R58 - Hemorrhage, not elsewhere classified Status: Acute DS: Summary Hospital Course Reason for hospitalization: Patient was admitted for robotic total hysterectomy bilateral salpingectomy on 11/08/2024. Hospital Course: Patient's hospital course unremarkable. She remained afebrile. She was up, voiding the difficulty, ambulating, eating regular diet, and generally without complaints. Time Spent with Patient Time attestation: Total time spent providing and/or coordinating discharge services: Exam Const: General: cooperative, healthy appearing and comfortable Nutritional Appearance: average body habitus Orientation/consciousness: oriented to person, oriented to place and oriented to time HENMT: Head: normal to inspection Resp: Effort & Inspection: normal respiratory effort Cardio: Rate: regular rate Rhythm: regular rhythm Heart sounds: S1 normal heart sound present and S2 normal heart sound present GI: Inspection: normal to inspection and incision (Wounds are clean dry intact) DS: Data Data Completed and Pending Pending studies at discharge: Pending at discharge 11/08/24 11:41 Surgical [PTH] Routine Discharge Plan Discharge Patient Disposition: Home, Self-Care Patient Language: Hebrew Stand Alone Forms: General Discharge Instructions Follow-up/Referrals: Walt Mcdaniel MD [Physician] - Discharge Medications: New hydrocodone-acetaminophen 5-325 mg tablet 1 tablet PO Q4H PRN (Reason: pain) Qty: 30 0RF No Action acyclovir 800 mg tablet 800 mg PO DAILY
[2024-11-08] MEDS: HYDROmorphone HCL INJ (*CRX) 1 MG/ML SYR 0.25 MG IV PUSH ×2 (13:58→14:05)
--- NOTE | 2024-11-08 15:10 | PC.NURSE ---
This patient, Yumiko Arriola, was received from PACU on 11/08/24 at 1510. Patient/family oriented to unit policies and routines
[2024-11-08] MEDS: DEXTROSE 5%/LACTATED RINGERS 1,000 ML 125 ML IV CONT (16:56)
[2024-11-08] MEDS: SIMETHICONE 80 MG TAB.CHEW PO (16:57)
[2024-11-08] MEDS: KETOROLAC 30 MG/ML VIAL (*BKC) IV PUSH ×2 (16:58→23:46)
--- NOTE | 2024-11-08 21:14 | PC.NURSE ---
Pt walked with another nurse back to bed. Patient was complaining of wanting her catheter out. I had discussed with her when I had went in the first time, that I would like her to receive more I.V. fluids. Patient could then be heard loudly, loudly complaining to someone on the phone that the nurse wouldn't take the catheter out. I went back into the room, and said that I will take your catheter out even though I am not comfortable with your amount of output. I also said I am going to leave your i.v. fluids running, and you will have to take them with you when you go to the bathroom. I said that I would like you to increase the amount of fluids you are taking in. Patient voiced understanding and agreed at that time.
[2024-11-08] MEDS: oxyCODONE HCL (*CRX) 5 MG TAB IR PO (21:41)
[2024-11-09 05:54] VITALS: BP 127/75; PULSE 48; RESP 16; TEMP 37; O2SAT 97
[2024-11-09 06:26] LABS: Basophils Percent Auto 0.3 % (0.2-1.2); Eosinophils Percent Auto 0.1 % (0-4.4); Hematocrit 36.6 % (37.0-47.0); Hemoglobin 11.7 g/dL (12.0-15.0); Immature Granulocyte Percent A 0.6 % (0-0.5); Lymphocytes Absolute Auto 1.95 K/mm3 (0.9-3.2); Lymphocytes Percent Auto 12.6 % (18.3-44.2); Mean Corpuscular Hemoglobin 27.4 pg (26-34); Mean Corpuscular Volume 85.7 fl (80-100); Mean Platelet Volume 11.2 fl (7.4-10.4); Monocytes Absolute Auto 0.8 K/mm3 (0.1-0.6); Monocytes Percent Auto 5.3 % (2.6-8.5); Neutrophils Absolute Auto 12.5 K/mm3 (1.3-6.7); Neutrophils Percent Auto 81.1 % (45.5-73.1); Platelet Count Result 233 k/mm3 (150-375); Red Blood Count 4.27 M/mm3 (4.2-5.4); Red Cell Distribution Width 16.4 % (11.5-14.5); White Blood Count 15.4 K/mm3 (4.5-10.0)
[2024-11-09] MEDS: ACETAMINOPHEN 500 MG TABLET 1000 MG PO (06:47)
[2024-11-09] MEDS: IBUPROFEN 600 MG TABLET PO (06:49)
[2024-11-09] MEDS: oxyCODONE HCL (*CRX) 5 MG TAB IR PO (06:49)
--- NOTE | 2024-11-09 07:24 | PM.GYNPNOP ---
PHOTO PRINT SPECIALIST - A/P Assessment and plan (1) Pelvic pain: Code(s): R10.2 - Pelvic and perineal pain Status: Acute (2) Enlarged uterus: Code(s): N85.2 - Hypertrophy of uterus Status: Acute (3) Excessive bleeding: Code(s): R58 - Hemorrhage, not elsewhere classified Status: Acute (4) Pelvic congestion: Code(s): N94.89 - Other specified conditions associated with female genital organs and menstrual cycle Status: Acute Plan home follow-up 2 weeks Postoperative Procedures: Procedures Operation Date: 11/08/24 13:30 Actual Procedure Side Surgeon p Robotic Assisted Total Vaginal Hysterectomy with Bilateral Salpingectomy Bilateral Walt Hernandez MD Time Spent With Patient Time: Total time spent is greater than 50% in coordination of care (as documented) at patient's floor/unit and/or counseling patient: Time with patient: less than 15 minutes PHOTO PRINT SPECIALIST- PN:Subj Post-Op Subjective Date/time seen: 11/09/24 07:24 Subjective: patient reports feeling better, patient has no complaints, patient desires discharge, pain is well controlled and patient is tolerating oral intake Exam Const: General: cooperative, healthy appearing and comfortable Nutritional Appearance: average body habitus Orientation/consciousness: oriented to person, oriented to place and oriented to time HENMT: Head: normal to inspection Resp: Effort & Inspection: normal respiratory effort Cardio: Rate: regular rate Rhythm: regular rhythm Heart sounds: S1 normal heart sound present and S2 normal heart sound present GI: Inspection: normal to inspection and incision (Wounds are clean dry intact) PHOTO PRINT SPECIALIST - PN: Obj Data Vital Signs Vital Signs: Vital Signs - 24 hr 11/08/24 11:40 11/08/24 13:46 11/08/24 14:00 Temperature 97.5 F L 98.2 F Pulse Rate 63 60 50 L Respiratory Rate 16 16 13 Blood Pressure 104/68 137/72 135/73 Pulse Oximetry 98 100 100 Oxygen Delivery Simple Face Mask Simple Face Mask Oxygen Flow Rate 8 8 11/08/24 14:15 11/08/24 14:30 11/08/24 14:45 Temperature Pulse Rate 49 L 53 L 53 L Respiratory Rate 12 12 12 Blood Pressure 119/71 111/62 108/66 Pulse Oximetry 98 92 95 Oxygen Delivery Room Air Room Air Nasal Cannula Oxygen Flow Rate 2 11/08/24 14:56 11/08/24 15:15 11/08/24 21:50 Temperature 97.7 F 97.8 F Pulse Rate 50 L 50 L 49 L Respiratory Rate 12 16 16 Blood Pressure 111/76 138/50 L 121/73 Pulse Oximetry 99 93 99 Oxygen Delivery Nasal Cannula Oxygen Flow Rate 2 11/08/24 23:52 11/08/24 23:52 11/09/24 05:54 Temperature 97.8 F Pulse Rate 46 L 46 L 48 L Respiratory Rate 16 16 16 Blood Pressure 105/65 Pulse Oximetry 98 98 97 Oxygen Delivery Room Air Room Air Oxygen Flow Rate 11/09/24 05:54 Temperature 98.6 F Pulse Rate 48 L Respiratory Rate 16 Blood Pressure 127/75 Pulse Oximetry 97 Oxygen Delivery Oxygen Flow Rate Intake/Output Intake/Output: Intake & Output 11/06/24 11/07/24 11/08/24 11/09/24 23:59 23:59 23:59 23:59 Intake Total 650 1050 Output Total 580 Balance 70 1050 Meds/Results Medications: Active Medications Generic Name Dose Route Start Last Admin Trade Name Freq PRN Reason Stop Dose Admin Acetaminophen 1,000 mg 11/08/24 18:00 11/09/24 06:47 Acetaminophen 500 Mg Tablet PO 1,000 mg Q6HR RICK Administration Diphenhydramine HCl 25 mg 11/08/24 16:36 Diphenhydramine Hcl Inj 50 Mg/Ml Vial IV PUSH Q4H PRN Itching Docusate Sodium 100 mg 11/08/24 17:00 11/08/24 18:34 Docusate Sodium 100 Mg Capsule PO Not Given BID RICK Enoxaparin Sodium 40 mg 11/09/24 09:00 Enoxaparin 40 Mg/0.4 Ml Syringe SUB-Q DAILY RICK Dextrose/Lactated Ringer's 1,000 mls @ 125 mls/hr 11/08/24 16:40 11/08/24 16:56 Dextrose 5%/Lactated Ringers IV CONT 125 mls/hr .Q8H RICK Administration Ibuprofen 600 mg 11/09/24 12:00 11/09/24 06:49 Ibuprofen 600 Mg Tablet PO 600 mg Q6HR RICK Administration Naloxone HCl 0.1 mg 11/08/24 15:04 Naloxone Hcl 0.4 Mg/Ml Vial IV PUSH Q2M PRN Respiratory rate less than 10 Ondansetron HCl 4 mg 11/08/24 15:04 Ondansetron Inj 4 Mg/2 Ml Vial IV PUSH Q6H PRN Nausea And Vomiting Oxycodone HCl 5 mg 11/08/24 15:04 11/09/24 06:49 Oxycodone Hcl (*Crx) 5 Mg Tab Ir PO 5 mg Q4H PRN Administration Pain Rated 4-6 Oxycodone HCl 10 mg 11/08/24 15:04 Oxycodone Hcl (*Crx) 5 Mg Tab Ir PO Q6H PRN Pain Rated 7-10 Simethicone 80 mg 11/08/24 17:00 11/08/24 16:57 Simethicone 80 Mg Tab.Chew PO 80 mg TIDWM RICK Administration Labs 11/09/24 05:41 Labs: Laboratory Results - last 24 hr 11/09/24 05:41 WBC 15.4 H RBC 4.27 Hgb 11.7 L Hct 36.6 L MCV 85.7 MCH 27.4 MCHC 32.0 RDW 16.4 H Plt Count 233 MPV 11.2 H Immature Gran % (Auto) 0.6 H Neut % (Auto) 81.1 H Lymph % (Auto) 12.6 L [place] % (Auto) 5.3 Eos % (Auto) 0.1 Baso % (Auto) 0.3 Lymph # (Auto) 1.95 [place] # (Auto) 0.8 H Eos # (Auto) 0.0 Baso # (Auto) 0.0 Abs Immat Gran (auto) 0.10 H Absolute Neuts (auto) 12.5 H Absolute Nucleated RBC 0.000 Nucleated RBC % 0.0
[2024-11-09] MEDS: DOCUSATE SODIUM 100 MG CAPSULE PO (07:59)
[2024-11-09] MEDS: SIMETHICONE 80 MG TAB.CHEW PO (07:59)
[2024-11-09 08:00] VITALS: BP 120/86; PULSE 59; RESP 17; TEMP 36.7; O2SAT 98
[2024-11-09] MEDS: ENOXAPARIN 40 MG/0.4 ML SYRINGE SUB-Q (09:19)
== END 2024-11-09 09:40 | disposition home or self-care (01) ==
LOC: ANHSURGERY 11:20 → ANHOB2 15:19
PROVIDERS: Visit Provider Obstetrics & Gynecology
PROC: (CPT 58552; principal; 2024-11-08 13:30)
DX: N94.89 Other specified conditions associated with female genital organs and menstrual cycle (principal); N87.9 Dysplasia of cervix uteri, unspecified; K21.9 Gastro-esophageal reflux disease without esophagitis; F17.210 Nicotine dependence, cigarettes, uncomplicated; F12.90 Cannabis use, unspecified, uncomplicated; Z79.891 Long term (current) use of opiate analgesic
CPT/HCPCS: 58552; S2900; 36415; 85025; 88307; 99199; A9270; J0330; J0690; J1100; J1171; J1650; J1885; J2003; J2250; J2405; J2704; J3010; J7120; J7121

== ENCOUNTER 2025-02-08 09:13 | Emergency (ER) | payer SELFPAY ==
[2025-02-08 09:12] VITALS: BP 122/75; PULSE 51; RESP 20; TEMP 36.8; O2SAT 100
--- NOTE | 2025-02-08 10:08 | ED_ITS ---
HPI - General Adult General Chief complaint: Wound/Laceration Stated complaint: L wrist lac - accidental Time Seen by Provider: 02/08/25 10:01 History of Present Illness HPI narrative: 24-year-old female presenting to the emergency department for evaluation for laceration to her left wrist. Patient states she was attempting to replace a bolt and injured herself using a putty knife. Patient states this is not intentional. Patient is neurovascularly intact. 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 Related Data Home Medications ?Medication ?Instructions ?Recorded ?Confirmed ?Last Taken ?Type acyclovir 800 mg tablet 800 mg PO DAILY 12/06/21 10/31/24 01/20/24 History Allergies Allergy/AdvReac Type Severity Reaction Status Date / Time naproxen Allergy Rash Verified 02/08/25 09:21 sulfamethoxazole (From Allergy Rash Verified 02/08/25 09:21 Bactrim) trimethoprim (From Bactrim) Allergy Rash Verified 02/08/25 09:21 LIVE VACCINES Allergy Severe Other Uncoded 02/08/25 09:21 Review of Systems Review of Systems: All systems reviewed & are unremarkable except as noted in HPI and below PMFSH Past Medical History Medical History GERD (gastroesophageal reflux disease) IUP (intrauterine ), incidental Social History Social History Smoking packs per day: 0.5 Smoking cigarettes per day: 10.0 Years smoked: 10 Smoking pack-years: 5.00 Smoking status: Current every day smoker Tobacco type: cigarettes Substance use: current Substance use type: marijuana Other substance usage details: Twice a day. Do You Feel Safe in your Home?: Yes Lack of Transportation: No Lack of Food: Never True Current Housing: I Have Housing Concerned About Future Housing: No Difficulty Paying Gas/Electric Bills: No Difficulty Paying for Meds: No Currently Unemployed: No Education: Decline to Answer Difficulty w/ Childcare or Family Care: No Living arrangements: with family Gender identity (if verbalized by the patient): Female Spiritual care concerns: No Exam Narrative: APPEARANCE: Well appearing, no pain, no distress, well-nourished. HEAD: normocephalic, atraumatic. EYES: PERRLA/EOMI, conjunctivae clear. NOSE: Normal no drainage EARS:TMS clear with good light reflex. THROAT: Pharynx clear, no exudate. NECK: Supple. No adenopathy, no masses. RESPIRATORY: Airway patent, respirations nonlabored. Clear to auscultation bilaterally, no rales, rhonchi, wheezing. CARDIOVASCULAR: Regular rate and rhythm without murmurs rubs or gallops. ABDOMINAL: Soft, nontender, nondistended, normal bowel sounds MUSCULOSKELETAL: Moves all extremities. Strength/ROM intact, No edema, No calf tenderness. Affected hand is neurovascularly intact with normal range of motion NEURO: Alert. Cranial nerves II through XII intact. Good gait. Good coordination. SKIN: Laceration to left wrist Course Vital Signs Vital signs: Vital Signs Temperature 98.2 F 02/08/25 09:12 Pulse Rate 51 L 02/08/25 09:12 Respiratory Rate 20 02/08/25 09:12 Blood Pressure 122/75 02/08/25 09:12 Pulse Oximetry 100 02/08/25 09:12 Oxygen Delivery Room Air 02/08/25 09:12 Temperature 98.2 F 02/08/25 09:12 Pulse Rate 72 02/08/25 10:47 Respiratory Rate 16 02/08/25 10:47 Blood Pressure 121/88 02/08/25 10:47 Pulse Oximetry 100 02/08/25 10:47 Oxygen Delivery Room Air 02/08/25 09:12 Procedures Laceration Laceration 1: Time: 10:32 Site: upper extremity Side (If applicable): left Size (cm): 5 Description: linear Depth: simple, single layer Local Anesthetic: lidocaine 1% and with epi Amount of anesthesia used (mL): 4 Pre-repair: wound explored, irrigated and irrigated extensively ====== Skin Level ====== Skin layer closed with: nylon Size (cm): 3-0 Number of sutures: 8 Technique: simple, interrupted ====== Subcutaneous Layer ====== ====== Muscle Layer ====== ====== Tendon Layer ====== Medical Decision Making MDM Narrative Medical decision making narrative: 24-year-old female presented emergency department for evaluation for laceration to left wrist. Patient denies any homicidal or suicidal ideation. Patient states that due to history of Guillain-[place] unable to get a tetanus shot. Laceration was repaired as described above. Patient was neurovascularly intact before and after the procedure. Patient was updated on wound care. All questions concerns were addressed prior Differential Diagnosis Differential Diagnosis: Ligament injury, serial injury, penis injury, suicidal attempt, Past medical history:[] Social history:[] Vital Signs Vital Signs: Vital Signs Temperature 98.2 F 02/08/25 09:12 Pulse Rate 51 L 02/08/25 09:12 Respiratory Rate 20 02/08/25 09:12 Blood Pressure 122/75 02/08/25 09:12 Pulse Oximetry 100 02/08/25 09:12 Oxygen Delivery Room Air 02/08/25 09:12 Temperature 98.2 F 02/08/25 09:12 Pulse Rate 72 02/08/25 10:47 Respiratory Rate 16 02/08/25 10:47 Blood Pressure 121/88 02/08/25 10:47 Pulse Oximetry 100 02/08/25 10:47 Oxygen Delivery Room Air 02/08/25 09:12 Discharge Plan Discharge Clinical Impression: Laceration of wrist Patient Disposition: Home Condition: Stable Instructions: Antibiotic Form, Laceration (ED) Additional Instructions: Sutures need to be removed in 7-10 days. Have close follow-up with your physicians for both wound check and [id number] check. Patient Language: Macedonian Prescriptions: No Action acyclovir 800 mg tablet 800 mg PO DAILY hydrocodone-acetaminophen 5-325 mg tablet 1 tablet PO Q4H PRN (Reason: pain) Qty: 30 0RF Follow-up/Referrals: PHYSICIAN,HIGH SCHOOL DIRECTOR [Non-Staff] -
--- NOTE | 2025-02-08 10:10 | PC.NURSE ---
Dr. Foy at bedside suturing pt. wrist.
[2025-02-08 10:47] VITALS: BP 121/88; PULSE 72; RESP 16; O2SAT 100
--- OUTSIDE RECORDS SUMMARY | 2025-02-08 16:19 | XMS_ITS | Data Portability ---
Author Organization [facility] Address [address] [place] [address] Assessment No assessment recorded. Plan of Treatment Reminders Order Date Submit Date Provider Last Modified By Organization Details Last Modified Time Details Appointments None recorded. Lab estradiol, serum 2019 020 [facility] ([facility]), [address] [place] [address] Scott Zapata, [place], [address], 0 16:18:23 FSH (follicle- stimulatin g hormone), serum 2019 020 [facility] ([facility]), [address] [place] [address] C[address] Scott Zapata, [place], [address], 0 16:18:23 lh (luteinizi ng hormone), serum 2019 020 [facility] ([facility]), [address] [place] [address] C[address] Scott Zapata, [place], [address], 0 16:18:23 progestero ne, serum 2019 020 [facility] ([facility]), [address] [place] [address] C[address] Scott Zapata, [place], [address], 0 16:18:23 prolactin, serum 2019 020 [facility] ([facility]), [address] Scott Zapata, [place], [address], 0 16:18:24 TSH, serum or plasma 2019 [facility] ([facility]), [address] Scott Zapata, [place], [address], 0 16:18:24 test, urine 2019 020 [email or web address], [address], [address], [place], [address], 0 21:30:25 Referral None recorded. Procedures None recorded. Surgeries None recorded. Imaging US, pelvis, complete 2019 PAUL [facility], [address], [place], [address], 1 05:05:59 Medication Orders None recorded. Patient [...] enopa use 7.7 - 58.5 Not Available [facility] ([facility]) [address] [facility] [address], [place], [address], 05/14/2020 06:58:57 05/13/20 20 05/14/2020 lh + FSH, serum FSH 8.56 mIU/m L FSH Refer ence Range Men: 1.5 - 12.4 Women : Folli cular phase 3.5 - 12.5 Ovula tion phase 4.7 - 21.5 Lutea l phase 1.7 - 7.7 Postm enopa use 25.8 - 134.8 Not Available [facility] ([facility]) [address], [place], [address], 05/14/2020 06:58:57 05/13/20 20 05/14/2020 prola ctin, serum prolactin 13.10 NG/mL 4.79-2 3.30 Not Available [facility] ([facility]) [facility], [place], [address], 05/14/2020 06:58:57 05/13/20 20 05/14/2020 proge stero [...] trime ster 58.7 - 214 Not Available [facility] ([facility]) [facility], [place], [address], 05/14/2020 06:58:57 05/13/20 20 05/14/2020 estra diol, serum estradiol 46 pg/mL Estra diol Refer ence Range Healt hy women Folli cular phase 12.4 - 233 Ovula tion phase 41.0 - 398 Lutea l phase 22.3 - 341 Postm enopa use <5 - 138 Healt hy pregn ant women 1st trime ster 154 - 3243 2nd trime ster 1561 - 70001 3rd trime ster 8525 - >3000 0 Not Available [facility] ([facility]) [facility], [place], [address], 05/14/2020 06:58:58 05/13/20 20 05/14/2020 TSH, serum or plasm a TSH 2.59 mU/L 0.27-4 .20 Not Available [facility] ([facility]) [address] [facility] [address], [place], [address], 05/14/2020 06:58:58 05/13/20 20 05/14/2020 T4, free, serum thyroxine free (free T4) 1.05 NG/dL 0.86-1 .76 Not Available [facility] ([facility]) [address], [place], [address], 05/14/2020 06:58:59 05/13/20 20 05/13/2020 pregn rosi test, urine HCG negati ve Not Available [facility] [address], [place], [address], 05/13/2020 17:59:38 Result Notes None recorded. Medical Equipment None Reported. Allergies Allergen ID Allergen Name Allergen Category Reaction Reaction Severity Criticality Documentation Date Start Date Code Code System Note Provider Name and Address Organization Details Recorded Time 1580 Bactrim medicatio n Not available Not available Not available 05/13/2020 76747 9 RxNorm Laurence Parikh [place], [place] - [facility] 0 17:45:12 Medications Name Sig [...] Updated DateTime 05/13/2020 165.1 cm 32.3 kg/m2 78477.92 g 112 mm[Hg] 66 mm[Hg] Laurence Parikh [facility] 0 17:45:00 Social History None recorded. [...] SNOMED-CT Code Diagnosis ICD10 Code Diagnosis Note [id number] Jose Antonio Lugo MD [facility] [address] [address] 05/13/2020 16:16:21 05/14/2020 11:18:33 Pain in pelvis 28041278 R10.2 Abnormal u terine bleeding [id number] 9100 N93.9 this patient is a 19-year-ol [...] Reza Member ID Guarantor Name 05/13/2020 1 [facility] - DOS PRIOR TO 2021 (MEDICAID REPLACEMENT - HMO) Yumiko Rice [id number] Yumiko Rice Notes Date Note Type Note [...] Jose Antonio Lugo MD [address], [place], [address], [facility] 05/13/2020 21:51:12 OBGyn Episode Ob Episode Information Episode Created Date Number of Fetuses Patient Bloodtype Patient rh Status Prepregnancy Weight lbs Domestic Partner Domestic Partner Phone Father Name Wrapper Sheeter Status 05/13/20 20 1 CLOSED Fetus Data [...] Domestic Partner Domestic Partner Phone Father Name Wrapper Sheeter Status 05/13/20 20 1 CLOSED Fetus Data [...]
== END 2025-02-08 10:58 | disposition home or self-care (01) ==
PROVIDERS: Emergency Provider Emergency Medicine
DX: S61.512A Laceration without foreign body of left wrist, initial encounter (principal); W45.8XXA Other foreign body or object entering through skin, initial encounter; K21.9 Gastro-esophageal reflux disease without esophagitis; F17.210 Nicotine dependence, cigarettes, uncomplicated
CPT/HCPCS: 12002; 99282

== ENCOUNTER 2025-02-09 19:43 | Emergency (ER) | payer SELFPAY ==
[2025-02-09 19:44] VITALS: BP 141/84; PULSE 100; RESP 14; TEMP 36.7; O2SAT 100
--- OUTSIDE RECORDS SUMMARY | 2025-02-09 19:45 | XMS_ITS | Data Portability ---
Author Organization [facility] Address [address] [place] [address] Assessment No assessment recorded. Plan of Treatment Reminders Order Date Submit Date Provider Last Modified By Organization Details Last Modified Time Details Appointments None recorded. Lab estradiol, serum 2019 020 [facility] ([facility]), [address] [place] [address] Scott Zapata, [place], [address], 0 16:18:23 FSH (follicle- stimulatin g hormone), serum 2019 020 [facility] ([facility]), [address] [place] [address] C[address] Scott Zapata, [place], [address], 0 16:18:23 lh (luteinizi ng hormone), serum 2019 020 [facility] ([facility]), [address] [place] [address] C[address] Scott Zapata, [place], [address], 0 16:18:23 progestero ne, serum 2019 020 [facility] ([facility]), [address] [place] [address] C[address] Scott Zapata, [place], [address], 0 16:18:23 prolactin, serum 2019 020 [facility] ([facility]), [address] [facility] Scott Zapata, [place], [address], 0 16:18:24 TSH, serum or plasma 2019 [facility] ([facility]), [address] [facility] Scott Zapata, [place], [address], 0 16:18:24 test, urine 2019 020 [email or web address] [place], [address], [place], [address], 0 21:30:25 Referral None recorded. Procedures None recorded. Surgeries None recorded. Imaging US, pelvis, complete 2019 PAUL [place], [address], [place], [address], 1 05:05:59 Medication Orders None recorded. Patient [...] enopa use 7.7 - 58.5 Not Available [facility]) [address] [facility] [address], [place], [address], 05/14/2020 06:58:57 05/13/20 20 05/14/2020 lh + FSH, serum FSH 8.56 mIU/m L FSH Refer ence Range Men: 1.5 - 12.4 Women : Folli cular phase 3.5 - 12.5 Ovula tion phase 4.7 - 21.5 Lutea l phase 1.7 - 7.7 Postm enopa use 25.8 - 134.8 Not Available [facility] ([facility]) [address] [facility] [address], [place], [address], 05/14/2020 06:58:57 05/13/20 20 05/14/2020 prola ctin, serum prolactin 13.10 NG/mL 4.79-2 3.30 Not Available [facility] ([facility]) [facility] [address], [place], [address], 05/14/2020 06:58:57 05/13/20 20 05/14/2020 proge stero [...] trime ster 58.7 - 214 Not Available [facility] ([facility] [employer]) [facility] [address], [place], [address], 05/14/2020 06:58:57 05/13/20 20 05/14/2020 estra diol, serum estradiol 46 pg/mL Estra diol Refer ence Range Healt hy women Folli cular phase 12.4 - 233 Ovula tion phase 41.0 - 398 Lutea l phase 22.3 - 341 Postm enopa use <5 - 138 Healt hy pregn ant women 1st trime ster 154 - 3243 2nd trime ster 1561 - 334[address] 3rd trime ster 8525 - >3000 0 Not Available [facility] ([facility]) [facility] [address], [place], [address], 05/14/2020 06:58:58 05/13/20 20 05/14/2020 TSH, serum or plasm a TSH 2.59 mU/L 0.27-4 .20 Not Available [facility] ([facility]) [address] [facility] [address], [place], [address], 05/14/2020 06:58:58 05/13/20 20 05/14/2020 T4, free, serum thyroxine free (free T4) 1.05 NG/dL 0.86-1 .76 Not Available [facility] ([facility]) [address], [place], [address], 05/14/2020 06:58:59 05/13/20 20 05/13/2020 pregn rosi test, urine HCG negati ve Not Available [place] [address], [place], [address], 05/13/2020 17:59:38 Result Notes None recorded. Medical Equipment None Reported. Allergies Allergen ID Allergen Name Allergen Category Reaction Reaction Severity Criticality Documentation Date Start Date Code Code System Note Provider Name and Address Organization Details Recorded Time 1580 Bactrim medicatio n Not available Not available Not available 05/13/2020 [id number] RxNorm Laurence Parikh [place], [place] - [facility] 0 17:45:12 Medications Name Sig [...] Updated DateTime 05/13/2020 165.1 cm 32.3 kg/m2 09815.92 g 112 mm[Hg] 66 mm[Hg] Laurence Parikh [facility] 0 17:45:00 Social History None [...] SNOMED-CT Code Diagnosis ICD10 Code Diagnosis Note [id number] Jose Antonio Lugo MD [place] [address] [address] 05/13/2020 16:16:21 05/14/2020 11:18:33 Pain in pelvis [id number] R10.2 Abnormal u terine bleeding [id number] 9100 N93.9 this patient is a 19-year-ol [...] Reza Member ID Guarantor Name 05/13/2020 1 [facility] - DOS PRIOR TO 2021 (MEDICAID REPLACEMENT - HMO) Yumiko Rice [id number] Yumiko Rice Notes Date Note Type Note [...] Jose Antonio Lugo MD [address], [place], [address], [facility] 05/13/2020 21:51:12 OBGyn Episode Ob Episode Information Episode Created Date Number of Fetuses Patient Bloodtype Patient rh Status Prepregnancy Weight lbs Domestic Partner Domestic Partner Phone Father Name Conservation Or Heritage Architect Status 05/13/20 20 1 CLOSED Fetus Data [...] Domestic Partner Domestic Partner Phone Father Name Conservation Or Heritage Architect Status 05/13/20 20 1 CLOSED Fetus Data [...]
--- NOTE | 2025-02-09 20:42 | ED_ITS ---
HPI - Wound/Laceration General Chief Complaint: Wound/Laceration Stated Complaint: left arm - stitches Time Seen by Provider: 02/09/25 19:51 Source: patient Mode of arrival: ambulatory Limitations: no limitations History of Present Illness HPI narrative: Patient is a 24-year-old female who presents the ED with report of left wrist pain. Patient was seen here yesterday for accidental laceration to her left wrist. She was received sutures in the ED. Was discharged with wound care instructions. Patient reports she has been having significant pain and swelling to her left wrist today, decreased range of motion. She states she has not been able to do anything she needs to do at home due to the pain. Has been taking Tylenol and ibuprofen without improvement. Denies numbness. Denies new injury. Denies fevers. Related Data Home Medications ?Medication ?Instructions ?Recorded ?Confirmed ?Last Taken ?Type acyclovir 800 mg tablet 800 mg PO DAILY 12/06/21 10/31/24 01/20/24 History Allergies Allergy/AdvReac Type Severity Reaction Status Date / Time naproxen Allergy Rash Verified 02/08/25 09:21 sulfamethoxazole (From Allergy Rash Verified 02/08/25 09:21 Bactrim) trimethoprim (From Bactrim) Allergy Rash Verified 02/08/25 09:21 LIVE VACCINES Allergy Severe Other Uncoded 02/08/25 09:21 Review of Systems Review of Systems: All systems reviewed & are unremarkable except as noted in HPI. All systems reviewed & are unremarkable except as noted in HPI and below PMFSH Past Medical History Medical History GERD (gastroesophageal reflux disease) IUP (intrauterine ), incidental Social History Social History Smoking packs per day: 0.5 Smoking cigarettes per day: 10.0 Years smoked: 10 Smoking pack-years: 5.00 Smoking status: Current every day smoker Tobacco type: cigarettes Substance use: current Substance use type: marijuana Other substance usage details: Twice a day. Do You Feel Safe in your Home?: Yes Lack of Transportation: No Lack of Food: Never True Current Housing: I Have Housing Concerned About Future Housing: No Difficulty Paying Gas/Electric Bills: No Difficulty Paying for Meds: No Currently Unemployed: No Education: Decline to Answer Difficulty w/ Childcare or Family Care: No Living arrangements: with family Gender identity (if verbalized by the patient): Female Spiritual care concerns: No Exam Narrative: GENERAL: Anxious, tearful, uncomfortable appearing, well-nourished, non-toxic, in no acute distress. HEAD: Normocephalic, atraumatic. RESPIRATORY: Airway patent, respirations nonlabored. CARDIOVASCULAR: Regular rate and rhythm without murmurs, rubs, or gallops. Radial pulses are strong and easily palpable. MUSCULOSKELETAL: Limited ROM of L wrist d/t pain. She does have normal ROM of L finger flexion/extension. Laceration to volar L wrist with several sutures in place. Focal tenderness to palpation throughout L volar wrist and laceration region. Small area of dehiscence in middle of laceration. Very mild erythema and induration surrounding laceration with focal tenderness. No fluctuance, pu rulent drainage, bleeding. Sensation intact throughout extremity. SKIN: Warm, dry, normal color. NEURO: A&O X3. Speech clear. Cranial nerves II-XII grossly intact. Steady gait. No ataxic movements. PSYCHIATRIC: Anxious, tearful, histrionic behavior. Normal interaction. Course Vital Signs Vital signs: Vital Signs Temperature 98.1 F 02/09/25 19:44 Pulse Rate 100 02/09/25 19:44 Respiratory Rate 14 02/09/25 19:44 Blood Pressure 141/84 H 02/09/25 19:44 Pulse Oximetry 100 02/09/25 19:44 Oxygen Delivery Room Air 02/09/25 19:44 Temperature 98.1 F 02/09/25 19:44 Pulse Rate 100 02/09/25 19:44 Respiratory Rate 14 02/09/25 19:44 Blood Pressure 141/84 H 02/09/25 19:44 Pulse Oximetry 100 02/09/25 19:44 Oxygen Delivery Room Air 02/09/25 19:44 MDM - Wound/Laceration MDM Narrative Medical decision making narrative: Patient given pain control here with improvement. Will be started on antibiotics to cover for developing cellulitis. Wound was cleansed and bandaged here. Steri-Strips were placed over small area of dehiscence. Patient given Leonard bandage for support and stabilization of wrist. Will be referred to Hand surgery for further evaluation if needed. Given return precautions. Discharged in stable condition. Medical Records Attestation: I reviewed the patient's medical records. Discharge Plan Discharge Clinical Impression: Cellulitis of left wrist Laceration of left wrist Qualifiers: Encounter type: initial encounter Qualified Code(s): S61.512A - Laceration without foreign body of left wrist, initial encounter Patient Disposition: Home Condition: Stable Instructions: Antibiotic Form, Care For Your Stitches (ED), Laceration (ED) Additional Instructions: Take antibiotics as prescribed for possible infection surrounding your laceration. Your sutures will still need to be removed within the next 7-10 days. Follow-up with your primary care doctor for further evaluation of this. I have also referred you to Hand surgery for further evaluation if needed. You may call the office to make an appointment if needed. Wash wound daily with soap and water. Keep bandaged to avoid infection. Utilize Leonard bandage for support and stabilization of wrist. Continue Tylenol and ibuprofen as needed for pain. Patient Language: Bulgarian Prescriptions: New cephalexin 500 mg capsule 500 mg PO Q6H 7 Days Qty: 28 0RF No Action acyclovir 800 mg tablet 800 mg PO DAILY hydrocodone-acetaminophen 5-325 mg tablet 1 tablet PO Q4H PRN (Reason: pain) Qty: 30 0RF Follow-up/Referrals: Tamara Mariee MD [Physician] - (PLASTIC/HAND SURGERY) UNKNOWN,DOCTOR [Primary Care Provider] - Time of Disposition: 21:23
[2025-02-09] MEDS: CEPHALEXIN 500 MG CAPSULE PO (20:58)
[2025-02-09] MEDS: oxyCODONE HCL (*CRX) 5 MG TAB IR PO (20:58)
--- NOTE | 2025-02-09 21:23 | PC.NURSE ---
Patient and quite upset about the level of pain being experienced at the area of the stitches in wrist. I accompanied ED provider, MATT Bosch, to evaluate patient. Patient crying, cursing, and restless during examination. MATT Bosch to place orders for pain medication and antibiotic. I spoke with patient 2 additional times after examination to ensure needs were being met. Patient confirmed needs met to her satisfaction at that time.
== END 2025-02-09 21:34 | disposition home or self-care (01) ==
PROVIDERS: Emergency Provider Physician Assistant
DX: S61.512D Laceration without foreign body of left wrist, subsequent encounter (principal); L03.114 Cellulitis of left upper limb; F17.210 Nicotine dependence, cigarettes, uncomplicated; W45.8XXD Other foreign body or object entering through skin, subsequent encounter
CPT/HCPCS: 99283; A9270

== ENCOUNTER 2025-07-22 23:14 | Observation (INO) | payer OTHER, SELFPAY ==
--- NOTE | ~2025-07-22 | MR_ITS ---
EXAMINATION: MR brain/brain stem wo/w con DATE: 07/24/2025 16:17 INDICATION: Seizure disorder TECHNIQUE: Magnetic resonance imaging (MRI) of the brain and brainstem was performed without and with 19 mL Multihance intravenous contrast. Sequences included sagittal and axial T1-weighted SE, axial diffusion-weighted FS SE, axial 3D SWAN, axial T2-weighted FLAIR Propeller, axial T2-weighted Propeller, coronal T2-weighted FLAIR, and coronal T1-weighted 3D FSPGR. Postcontrast axial T1-weighted SE was obtained. Apparent diffusion coefficient (ADC) maps were created. COMPARISON: Head CT dated 07/23/2025 FINDINGS: There are no areas of restricted diffusion to suggest acute infarction. No intracranial hemorrhage or abnormal intracranial mass lesion. There are no intraparenchymal signal abnormalities seen on the other pulse sequences. The ventricles are symmetric and normal in size. Bilateral hippocampi are normal and symmetric. No evident santizo matter heterotopias or other neuronal migrational abnormalities. There are no abnormal extra-axial fluid collections. Flow voids are seen in the cerebral arteries on the T2-weighted sequences consistent with their expected patency. Mild mucosal thickening in the bilateral maxillary and ethmoid sinuses. Visualized orbits and soft tissues are unremarkable. There are no areas of abnormal enhancement on the post contrast images. IMPRESSION: 1. Mild mucosal thickening the paranasal sinuses. Otherwise unremarkable brain MR with no evident etiology for reported seizures. Reviewed, dictated and finalized at location A.
--- NOTE | ~2025-07-22 | CT_ITS ---
CT HEAD NON-CONTRAST Clinical History: seizure Comparison: CT head 05/17/2024 Technique: Unenhanced axial images skull base to vertex Coronal, sagittal reformats CT images acquired with automatic exposure control for dose reduction DLP: 681 mGy-cm Findings: Sulci, ventricles: Unremarkable. No intracerebral hemorrhage. No evidence acute territorial infarct. No mass effect, midline shift. Bony calvarium intact. Visualized paranasal sinuses: Clear. Mastoid air cells: Clear. Right lateral scalp contusion. IMPRESSION: 1. No acute intracranial findings. Reviewed, dictated and finalized at location R.
--- NOTE | ~2025-07-22 | XR_ITS ---
Examination: XR chest 1V portable Clinical History: seizure Comparison: 07/09/2022 Technique: Portable AP Findings: Heart size normal. Lungs clear. No acute bony abnormality. IMPRESSION: 1. No acute cardiopulmonary findings given portable technique. Reviewed, dictated and finalized at location R.
[2025-07-22] MEDS: SODIUM CHLORIDE 0.9% IV 1,000 ML 999 ML IV CONT (23:27)
[2025-07-22] MEDS: MIDAZOLAM HCL (*CRX) 2 MG/2 ML VIAL IV PUSH (23:27)
[2025-07-22] MEDS: ONDANSETRON INJ 4 MG/2 ML VIAL IV PUSH (23:27)
[2025-07-22 23:28] VITALS: O2SAT 96
--- NOTE | 2025-07-22 23:28 | ED.SEIZURE ---
HPI - Seizure General Chief Complaint: Seizure Stated Complaint: ETOH,SEIZING ON ROAD Time Seen by Provider: 07/22/25 23:20 History of Present Illness HPI Narrative: Patient is a 25-year-old female who presents to the emergency department this evening due to concern for multiple seizures. Per EMS report, [place] Per report, patient had 6 double shots of fireball today after getting in an argument with her . Patient had multiple witnessed seizure episodes by EMS prior to arrival. No known history of seizure disorder although patient did inform EMS that she did have a seizure at 1 point while she was , denies eclampsia or preeclampsia. Denies history of alcohol abuse stating that she just drink a lot today secondary to the argument. Patient did return back to baseline for EMS and no medications were administered. Upon arrival to the ED, patient is postictal, not responding to questions, moving all extremities spontaneously. Aggressive and combative. Related Data Home Medications ?Medication ?Instructions ?Recorded ?Confirmed ?Last Taken ?Type acyclovir 800 mg tablet 800 mg PO DAILY 12/06/21 10/31/24 01/20/24 History Allergies Allergy/AdvReac Type Severity Reaction Status Date / Time naproxen Allergy Rash Verified 02/11/25 09:47 sulfamethoxazole (From Allergy Rash Verified 02/11/25 09:47 Bactrim) trimethoprim (From Bactrim) Allergy Rash Verified 02/11/25 09:47 LIVE VACCINES Allergy Severe Other Uncoded 02/11/25 09:47 Review of Systems Review of Systems: Unable to obtain a full review of systems secondary to patient's postictal status. PMFSH Past Medical History Medical History GERD (gastroesophageal reflux disease) IUP (intrauterine ), incidental Social History Social History Smoking packs per day: 0.5 Smoking cigarettes per day: 10.0 Years smoked: 10 Smoking pack-years: 5.00 Smoking status: Current every day smoker Tobacco type: cigarettes Substance use: current Substance use type: marijuana Other substance usage details: Twice a day. Do You Feel Safe in your Home?: Yes Lack of Transportation: No Lack of Food: Never True Current Housing: I Have Housing Concerned About Future Housing: No Difficulty Paying Gas/Electric Bills: No Difficulty Paying for Meds: No Currently Unemployed: No Education: Decline to Answer Difficulty w/ Childcare or Family Care: No Living arrangements: with family Gender identity (if verbalized by the patient): Female Spiritual care concerns: No Exam Narrative: General: Postictal, afebrile, aggressive and combative. HEENT: PERRL, no rhinorrhea, no post nasal drip, oropharynx clear. Neck: Trachea midline, no JVD, no lymphadenopathy. Cardiovascular: Regular rate and rhythm, no murmurs, rubs or gallops, no peripheral edema. Respiratory: Clear to auscultation bilaterally, no tachypnea, no wheezing, no rhonchi, no rubs, no respiratory distress. Abdomen: Soft, nontender, nondistended, no rebound, no guarding, no peritoneal signs. Musculoskeletal: No joint swelling or deformity, normal muscle tone. Skin: No rashes or petechia, no signs of infection. Psychiatric/Neuro: Postictal, aggressive, combative, difficult to direct, fighting with staff and refusing to follow commands. Course Vital Signs Vital signs: Vital Signs Pulse Oximetry 96 07/22/25 23:28 Oxygen Delivery Room Air 07/22/25 23:28 Pulse Rate 78 07/23/25 01:10 Respiratory Rate 21 H 07/23/25 01:10 Blood Pressure 130/90 07/23/25 01:10 Pulse Oximetry 96 07/23/25 01:10 Oxygen Delivery Room Air 07/22/25 23:57 MDM - Seizure MDM Narrative Medical decision making narrative: The patient was evaluated by myself in the emergency department. History is obtained from EMS report and physical exam was performed. External medical records were reviewed at this time. IV was established and pertinent tests were ordered. Patient was placed in four-point restraint at this due to her postictal/combative status to facilitate obtaining blood work/imaging studies. Patient was administered 2 mg of IV Versed and 1500 mg of IV Keppra. She was also administered 1 L IV fluid bolus with normal saline. EKG was obtained which revealed sinus rhythm rate of 63 beats per minute, no evidence of acute ischemia. EKG was independently interpreted by me and is currently pending official cardiology read. Laboratory results obtained revealing an alcohol level of 204 otherwise no acute process. Urinalysis pending. Imaging studies obtained included CT brain without IV contrast and CXR which was independently interpreted by me revealing right parietal scalp soft tissue swelling otherwise no acute process, which is pending final radiology interpretation. Patient was taken off of 4 points, is now, cooperative. Differential diagnosis considerations include epileptic versus nonepileptic seizure, alcohol withdrawal, substance use disorder. Comorbidities impacting this visit include none. I have evaluated and discussed social determinants of health with the patient that could potentially impact subsequent diagnosis and treatment plans. On repeat assessment of the patient, reevaluation revealed that the patient is doing well and is in no acute distress. Patient symptoms have remained stable since she arrived to our emergency department. Repeat vital signs were all reviewed and noted to be stable. Case discussed with the on-call hospitalist Dr. Kwong at 0240 who requested additional blood work including salicylate and acetaminophen levels which were obtained at this time. Both values were obtained and noted to be negative. Case discussed with Dr. Kwong again at 0410 and she accepted admission. Urinalysis and UDS is currently pending. Lab Data 07/22/25 23:28 07/22/25 23:28 Labs: Lab Results 07/22/25 07/23/25 Range/Units 23:28 03:48 WBC 10.7 H (4.5-10.0) K/mm3 RBC 4.76 (4.2-5.4) M/mm3 Hgb 13.5 (12.0-15.0) g/dL Hct 40.8 (37.0-47.0) % MCV 85.7 (80-100) fl MCH 28.4 (26-34) pg MCHC 33.1 (32-36) g/dl RDW 14.0 (11.5-14.5) % Plt Count 255 (150-375) k/mm3 MPV 10.8 H (7.4-10.4) fl Immature Gran % (Auto) 0.5 (0-0.5) % Neut % (Auto) 52.2 (45.5-73.1) % Lymph % (Auto) 35.4 (18.3-44.2) % [place] % (Auto) 7.6 (2.6-8.5) % Eos % (Auto) 3.2 (0-4.4) % Baso % (Auto) 1.1 (0.2-1.2) % Lymph # (Auto) 3.78 H (0.9-3.2) K/mm3 [place] # (Auto) 0.8 H (0.1-0.6) K/mm3 Eos # (Auto) 0.3 (0-0.3) K/mm3 Baso # (Auto) 0.1 (0.0-0.1) K/mm3 Abs Immat Gran (auto) 0.05 H (0.00-0.031) K/mm3 Absolute Neuts (auto) 5.6 (1.3-6.7) K/mm3 Absolute Nucleated RBC 0.000 (0.0-0.012) K/mm3 Nucleated RBC % 0.0 (0.0-0.2) % Sodium 141 (137-145) mmol/L Potassium 3.6 (3.4-5.0) mmol/L Chloride 105 (98-107) mmol/L Carbon Dioxide 25 (22-30) mmol/L Anion Gap 11 (4-12) mmol/L BUN 8 (7-17) mg/dL Creatinine 0.71 (0.7-1.0) mg/dL Estim Creat Clear Calc Not Reportable Estimated GFR > 60 (59 - ) Glucose 107 (65-110) mg/dL Lactic Acid 1.7 (0.7-2.0) mmol/L Calcium 9.4 (8.4-10.2) mg/dL Magnesium 2.1 (1.6-2.3) mg/dL Total Bilirubin 0.2 (0.2-1.3) mg/dL AST 23 (14-36) U/L ALT 17 (6-35) U/L Alkaline Phosphatase 84 (38-126) U/L Total Creatine Kinase 115 (30-135) U/L Total Protein 7.2 (6.3-8.2) g/dL Albumin 4.4 (3.5-5.1) g/dL Prolactin Pending Serum HCG, Qual Negative Salicylates < 1.0 L (2-20) mg/dL Acetaminophen < 10 L (10-30) ug/mL Ethyl Alcohol 204 (<10) mg/dL Discharge Plan Discharge Clinical Impression: Witnessed seizure-like activity, Alcohol intoxication Patient Disposition: Still a Patient Condition: Stable Patient Language: Omani Prescriptions: No Action acyclovir 800 mg tablet 800 mg PO DAILY hydrocodone-acetaminophen 5-325 mg tablet 1 tablet PO Q4H PRN (Reason: pain) Qty: 30 0RF cephalexin 500 mg capsule 500 mg PO Q6H 7 Days Qty: 28 0RF Follow-up/Referrals: UNKNOWN,DOCTOR [Primary Care Provider] Time of Disposition: 02:29
[2025-07-22 23:33] LABS: Hematocrit 40.8 % (37.0-47.0); Hemoglobin 13.5 g/dL (12.0-15.0); Immature Granulocyte Percent A 0.5 % (0-0.5); Lymphocytes Absolute Auto 3.78 K/mm3 (0.9-3.2); Mean Corpuscular HGB Conc 33.1 g/dl (32-36); Mean Corpuscular Hemoglobin 28.4 pg (26-34); Mean Corpuscular Volume 85.7 fl (80-100); Nucleated Red Blood Cells Absolute Auto 0.000 K/mm3 (0.0-0.012); Nucleated Red Blood Cells Perc 0.0 % (0.0-0.2); Platelet Count Result 255 k/mm3 (150-375); Red Blood Count 4.76 M/mm3 (4.2-5.4); White Blood Count 10.7 K/mm3 (4.5-10.0)
[2025-07-22 23:35] VITALS: PULSE 66
[2025-07-22 23:45] LABS: Alanine Aminotransferase 17 U/L (6-35); Albumin Level 4.4 g/dL (3.5-5.1); Alkaline Phosphatase 84 U/L (38-126); Anion Gap 11 mmol/L (4-12); Aspartate Amino Transferase 23 U/L (14-36); Bilirubin,Total 0.2 mg/dL (0.2-1.3); Blood Urea Nitrogen 8 mg/dL (7-17); Calcium 9.4 mg/dL (8.4-10.2); Carbon Dioxide 25 mmol/L (22-30); Chloride 105 mmol/L (98-107); Creatine Kinase 115 U/L (30-135); Estimated Glomerular Filt Rate > 60; Glucose 107 mg/dL (65-110); Magnesium 2.1 mg/dL (1.6-2.3); Potassium 3.6 mmol/L (3.4-5.0); Sodium 141 mmol/L (137-145); Total Protein 7.2 g/dL (6.3-8.2)
[2025-07-22 23:47] LABS: SPREG INTERNAL CONTROL Positive; Serum Qual hCG Negative
[2025-07-22] MEDS: levETIRAcetam 1500MG/NACL100ML 1,500 MG/100 ML BAG 400 MG IVPB (23:50)
--- NOTE | 2025-07-22 23:51 | PC.NURSE ---
RN attempted to straight cath for urine at this time. RN was unsuccessful and pt began to kick and throw arms at staff. Pt is disoriented at this time and admits to drinking alcohol and smoking marijuana tonight. Pt is screaming and continuing to kick and attempt to hit staff. MD Corona notified. Pt screaming give me my kids back. Pt is disoriented. Bj verbally orders violent/daniel restraints placed. Multiple RNs and techs at bedside. ED security at bedside as well.
[2025-07-22 23:57] VITALS: BP 130/90; PULSE 102; RESP 20; O2SAT 98
[2025-07-23] VITALS (22 sets, daily range): BP systolic 92–132; BP diastolic 46–103; PULSE 53–94; RESP 18–33; TEMP 36.4–36.7; O2SAT 94–100; BMI 31.1
--- NOTE | 2025-07-23 00:08 | PC.NURSE ---
EDP notifed that RN was unsuccessful in doing the straight catheter. EDP stated it is ok to use urine sample from purewick or Ubag.
[2025-07-23] MEDS: SODIUM CHLORIDE 0.9% IV 1,000 ML 999 ML IV CONT (00:35)
--- NOTE | 2025-07-23 01:02 | ECG_ITS ---
Test Date: 2025-07-23 02:33:59 Measurements Intervals [facility] Rate: 63 P: 39 ND: 137 QRS: 75 QRSD: 84 T: 39 QT: 424 QTc: 437 Interpretive Statements SINUS RHYTHM MINIMAL Q WAVES- INF/LAT LEADS BORDERLINE ECG Compared to ECG 05/17/2024 13:39:43 Sinus arrhythmia no longer present Electronically Signed On 07-23-2025 06:22:00 CDT by Sebastien Bolton D.O.
--- NOTE | 2025-07-23 02:16 | PC.NURSE ---
Pt taken to CT with software test technician and security. While down in CT security removed pt from restraints while transferring pt to CT bed, security reports that pt remained calm while restraints where removed. Pt back to ED room, calm and sleeping, restraints remained off at this time.
[2025-07-23 02:54] LABS: Acetaminophen < 10 ug/mL (10-30); Salicylate < 1.0 mg/dL (2-20)
[2025-07-23] MEDS: SODIUM CHLORIDE 0.9% IV 1,000 ML 100 ML IV CONT (02:55)
--- NOTE | 2025-07-23 03:36 | PC.NURSE ---
This RN went into pt room to see if we have received in urine from the pt purwic. Canister was emptoed. This RN checked pt diaper and location of purwic. Diaper was clean and dry and pt purwic was still positioned in correct spot. Pt is asleep and has not provided urine sample at this time. Per MD we can use purwic for urine sample due to pt anatomy and unsuccess with straight catheter before.
--- NOTE | 2025-07-23 06:23 | PC.NURSE ---
Pt woke up from her sleep stating she needed to use the restroom. Pt and this RN ambulated with steady gait to restroom and was able to give urine sample at this time. Pt states she does not remember anything from last night and this RN updated her at this time.
[2025-07-23 06:28] LABS: BEDSIDEPREGUCG Negative (Negative)
[2025-07-23 06:35] LABS: Add Urine Microscopic? NO; Appearance Urine Clear (Clear); Glucose Urine UA Negative (Negative); Leukocyte Esterase Ur Negative LEU/UL (Negative); Nitrate Urine Negative (Negative); Specific Grav Ur 1.009 (1.001-1.035)
[2025-07-23] MEDS: IPRATROPIUM 0.5 MG/ALBUTEROL SULFATE 2.5 MG (BASE) AMPUL.NEB 3 ML INHALATION (06:36)
[2025-07-23 06:59] LABS: Cannabinoid Screen Urine Positive (Negative)
--- NOTE | 2025-07-23 07:15 | PC.NURSE ---
This RN received report from Genevieve ALMANZA and took over care at 0700.
--- NOTE | 2025-07-23 08:46 | ADMGEN ---
This patient, Yumiko Arriola, was admitted to IMU Room 205-01. Patient/family oriented to hospital policies and general routines including ID bracelet, bed and alarms, visiting hours, pain management, procedures, bathroom and other care routines, personal items, smoking policy, room service/diet, and visiting hours. Information on how to activate the Rapid Response Team has been discussed. Patient/Family are encouraged to report perceived risks to care and to ask questions if they do not understand what they are told or what they should do.
[2025-07-23] MEDS: ONDANSETRON INJ 4 MG/2 ML VIAL IV PUSH ×2 (09:17→17:52)
[2025-07-23] MEDS: PHENobarbitaL sodium (*CRX) 130 MG/ML VIAL IV PUSH (12:11)
[2025-07-23] MEDS: levETIRAcetam 1000MG/NACL100ML 1,000 MG/100 ML BAG 400 MG IVPB ×2 (12:11→21:48)
[2025-07-23] MEDS: THIAMINE HCL INJ 100 MG, FOLIC ACID INJ 1 MG, MAGNESIUM SULFATE INJ 1 GM, MULTIVITAMINS... 125 MG IV CONT (12:57)
--- NOTE | 2025-07-23 13:31 | PC.NURSE ---
At 1201 07/23/2025 patient had a seizure. Patient was in the process of getting an EEG. Patient was shaking and had become unresponsive. The seizure lasted for about 30 seconds, and it broke without any medications being given. MD was notified of seizure during the event. 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 MD put in orders for withdrawal symptoms
--- NOTE | 2025-07-23 16:11 | P.HP_ITS ---
H&P: HPI History of Present Illness Date/Time: 07/23/25 16:11 Chief Complaint: seizures Narrative: 25 yo female with PMH of Migraines who was brought to the ER for seizures. Patient wa emothinally labile during this encounter, stated she was an alcoholic but quit since October dn relapsed last night and drank 6 fireballs and woke up in the ER where she stated she was informed she had multiple seizures. Otherwise denies any chest pain, SOB, abd pain, vomiting or diarrhea prior to drinking yesterday. ER eval vital signs stable and within normal limits Labs UDS positive for Benzos and Cannabinoids, WBC 10.7, HCG negative, CT head and CXR no acute changes. Was given 1500mg IV prior to admission. Review of Systems Review of Systems: All other systems were reviewed adn negative except as noted in the HPI above PMFSH Past Medical History Medical History GERD (gastroesophageal reflux disease) IUP (intrauterine ), incidental Social History Social History Smoking packs per day: 1 Smoking cigarettes per day: 20.0 Years smoked: 10 Smoking pack-years: 10.00 Smoking status: Current every day smoker Tobacco type: cigarettes Alcohol intake: current Substance use: current Substance use type: marijuana Other substance usage details: Twice a day. Do You Feel Safe in your Home?: Yes Lack of Transportation: No Lack of Food: Never True Current Housing: I Have Housing Concerned About Future Housing: No Difficulty Paying Gas/Electric Bills: No Difficulty Paying for Meds: No Currently Unemployed: No Education: Decline to Answer Difficulty w/ Childcare or Family Care: No Living arrangements: with family Gender identity (if verbalized by the patient): Female Spiritual care concerns: No Meds Home Medications and Allergies Home Medications ?Medication ?Instructions ?Recorded ?Confirmed ?Type No Home Medications 07/23/25 07/23/25 H istory Allergies Allergy/AdvReac Type Severity Reaction Status Date / Time naproxen Allergy Rash Verified 07/23/25 09:02 sulfamethoxazole (From Allergy Rash Verified 07/23/25 09:02 Bactrim) trimethoprim (From Bactrim) Allergy Rash Verified 07/23/25 09:02 LIVE VACCINES Allergy Severe Other Uncoded 02/11/25 09:47 Vital Signs Vital Signs - 24 hr 07/22/25 23:28 07/22/25 23:35 07/22/25 23:57 Temperature Pulse Rate 66 102 H Respiratory Rate 20 Blood Pressure 130/90 Pulse Oximetry 96 98 Oxygen Delivery Room Air Room Air Fraction of Inspired Oxygen 07/23/25 00:05 07/23/25 01:10 07/23/25 05:24 Temperature Pulse Rate 86 78 66 Respiratory Rate 20 21 H 18 Blood Pressure 92/49 L 130/90 128/85 Pulse Oximetry 95 96 96 Oxygen Delivery Fraction of Inspired Oxygen 07/23/25 06:24 07/23/25 06:38 07/23/25 06:40 Temperature Pulse Rate 94 70 65 Respiratory Rate 33 H 20 20 Blood Pressure 123/103 H Pulse Oximetry 98 98 Oxygen Delivery Room Air Fraction of Inspired Oxygen 21 07/23/25 06:41 07/23/25 06:47 07/23/25 07:59 Temperature Pulse Rate 71 60 88 Respiratory Rate 18 20 20 Blood Pressure 108/73 123/92 H Pulse Oximetry 100 98 Oxygen Delivery Fraction of Inspired Oxygen 07/23/25 08:00 07/23/25 08:00 07/23/25 08:54 Temperature 97.7 F Pulse Rate 64 72 Respiratory Rate 20 Blood Pressure 132/99 H Pulse Oximetry 99 Oxygen Delivery Room Air Fraction of Inspired Oxygen 07/23/25 11:53 07/23/25 12:00 07/23/25 15:54 Temperature 97.6 F 98.0 F Pulse Rate 58 L 58 L Respiratory Rate 20 20 Blood Pressure 117/66 121/64 Pulse Oximetry 97 97 Oxygen Delivery Room Air Fraction of Inspired Oxygen Exam Narrative: General: alert and comfortable Eyes: EOMI, PERRLA ENNT External ears normal, Neck is supple, no masses, Respiratory systems: Clear to auscultation Cardiovascular S1, S2, normal rhythm, no murmur, rub, or gallop; no thrill or palpable murmurs on palpation. Gastrointestinal: soft, non-tender, and non-distended abdomen with no masses; BS present Skin: no rash, lesions, ulcerations, subcutaneous nodules or induration Musculoskeletal: no abnormality and no tenderness, normal ROM Neurologic: Alert and oriented x3, non focal Mental Status Exam: emotionally labile H&P: Results Labs Labs: Short CBC 07/22/25 Range/Units 23:28 WBC 10.7 H (4.5-10.0) K/mm3 Hgb 13.5 (12.0-15.0) g/dL Hct 40.8 (37.0-47.0) % Plt Count 255 (150-375) k/mm3 BMP 07/22/25 23:28 Sodium 141 Potassium 3.6 Chloride 105 Carbon Dioxide 25 BUN 8 Creatinine 0.71 Glucose 107 Calcium 9.4 Cardiac Enzymes 07/22/25 Range/Units 23:28 Total Creatine Kinase 115 (30-135) U/L Liver Function 07/22/25 Range/Units 23:28 Total Bilirubin 0.2 (0.2-1.3) mg/dL AST 23 (14-36) U/L ALT 17 (6-35) U/L Alkaline Phosphatase 84 (38-126) U/L Albumin 4.4 (3.5-5.1) g/dL Urine 07/23/25 Range/Units 06:20 Urine Color Yellow (Yellow) Urine Appearance Clear (Clear) Urine pH 5.5 (5.0-9.0) Ur Specific [place] 1.009 (1.001-1.035) Urine Protein Negative (Negative) mg/dL Urine Glucose (UA) Negative (Negative) mg/dL Assessment and Plan Assessment and plan (1) Witnessed seizure-like activity: Code(s): R56.9 - Unspecified convulsions Status: Acute Plan Seizure ?Epilespy Patent noted she had one episode of seizure last year but did not elaborate However given here claim that her last alcohol was in october until yesterday, this is less likely to be alcohol withdrawal seizures EEG, Neurology consulted CT head unremarkable COntineu Keppra and CIWA protocol pending Neurology eval ALochol intoxication Patinet counselled about alcohol cessation continue CIWA protocol Tobacco use disorder Counseled about cessation DVT prophylaxis on SQ Lovenox Full code Hospitalist MIPS Advance Care Plan I have confirmed that the patient's Advanced Care Plan is present, code status is documented, or surrogate decision maker is listed in patient medical record.: Yes Medication Reconciliation I have utilized all available resources to obtain, update and review the patients current medications (includes all prescriptions, OTC, herbals, cannabis, and nutritional supplements).: Yes
[2025-07-23] MEDS: PHENobarbitaL sodium (*CRX) 65 MG/ML VIAL IV PUSH (21:48)
[2025-07-24] VITALS (19 sets, daily range): BP systolic 110–145; BP diastolic 46–79; PULSE 46–84; RESP 15–20; TEMP 36.5–36.9; O2SAT 92–100
[2025-07-24 03:22] LABS: Hematocrit 34.5 % (37.0-47.0); Hemoglobin 10.9 g/dL (12.0-15.0); Immature Granulocyte Percent A 0.4 % (0-0.5); Lymphocytes Absolute Auto 3.40 K/mm3 (0.9-3.2); Mean Corpuscular HGB Conc 31.6 g/dl (32-36); Mean Corpuscular Hemoglobin 28.2 pg (26-34); Mean Corpuscular Volume 89.1 fl (80-100); Nucleated Red Blood Cells Absolute Auto 0.000 K/mm3 (0.0-0.012); Nucleated Red Blood Cells Perc 0.0 % (0.0-0.2); Platelet Count Result 206 k/mm3 (150-375); Red Blood Count 3.87 M/mm3 (4.2-5.4); White Blood Count 8.1 K/mm3 (4.5-10.0)
[2025-07-24 03:31] LABS: Alanine Aminotransferase 12 U/L (6-35); Albumin Level 2.8 g/dL (3.5-5.1); Alkaline Phosphatase 66 U/L (38-126); Anion Gap 1 mmol/L (4-12); Aspartate Amino Transferase 19 U/L (14-36); Bilirubin,Total 0.5 mg/dL (0.2-1.3); Blood Urea Nitrogen 8 mg/dL (7-17); Calcium 7.7 mg/dL (8.4-10.2); Carbon Dioxide 23 mmol/L (22-30); Chloride 110 mmol/L (98-107); Estimated CRCL calculation 130 ml/min; Estimated Glomerular Filt Rate > 60; Glucose 84 mg/dL (65-110); Magnesium 2.1 mg/dL (1.6-2.3); Potassium 3.5 mmol/L (3.4-5.0); Sodium 134 mmol/L (137-145); Total Protein 5.2 g/dL (6.3-8.2)
--- NOTE | 2025-07-24 09:02 | P.NEURO_ITS ---
Neurology EEG Report General Information Date of Study: 07/23/25 TEST EEG DIAGNOSIS Seizures. CONDITION OF RECORDING Awake, drowsy and asleep. EEG NUMBER [id number] CLINICAL HISTORY 25 years old female who is a recovering alcoholic had seizure-like activity. Patient stated that she had relapsed from alcohol and had drank a lot of fireball. She was walking on the [place] from [place] to [place] where her works when police pulled up she then had a seizure [place] [facility] where she had full body jerking urinated on herself and was throwing up. Patient states she feels anxious and jittery before her episodes and just does not feel right And then She will wake up and not knowing what happened. during her EEG and hyperventilation patient had a seizure-like episode when she felt jittery stated I do not feel right, this was followed with her arms and hands curled up and in with the whole body tightening and jerking this resolved seconds after and just felt tired afterwards. EEG DESCRIPTION Basic resting occipital frequency consists of low to medium voltage 9 to 11 hertz per 2nd alpha admixed with low-voltage 15 to 18 hertz per 2nd beta activity and with good timothy posterior gradient. Low-voltage beta activity seen diffusely admixed with waxing and waning posterior alpha rhythm during drowsiness. Hyperventilation produced normal and symmetrical buildup admixed with multiple movement artifacts and muscle artifacts. Non paroxysmal nonfocal nonlateralizing IMPRESSION No electrical seizures noted during the tracing though multiple movement art ifacts were recorded as mentioned above. This particular tracing is not diagnostic of seizure or seizure focus. Clinical correlation recommended.
[2025-07-24] MEDS: PHENobarbitaL sodium (*CRX) 65 MG/ML VIAL IV PUSH ×2 (09:29→20:39)
[2025-07-24] MEDS: levETIRAcetam 1000MG/NACL100ML 1,000 MG/100 ML BAG 400 MG IVPB ×2 (09:29→20:49)
--- NOTE | 2025-07-24 12:58 | P.CONNEU_ITS ---
Assessment and Plan Assessment and plan (1) Witnessed seizure-like activity: Code(s): R56.9 - Unspecified convulsions Status: Acute (2) Chronic alcohol abuse: Code(s): F10.10 - Alcohol abuse, uncomplicated Status: Acute Plan Apparently patient has had a seizure while she is drunk however she has had seizures on and off in the past which has never been assessed. I would suggest an MRI of the brain with without contrast per seizure protocol. It is difficult to make a definitive decision and hence I would suggest to keep her on the Keppra 1000 mg twice a day. I shall be glad to see her my office for follow-up. Her initial CT scan of brain and EEG did not show any significant abnormality. Lot of muscle tension artifacts were noted in the EEG. Further decision can be made based upon the findings on MRI the brain. Consult date: 07/24/25 HPI: Yumiko Arriola is a 25 year old female with history of chronic alcohol abuse and consider recovering alcoholic states that she had a bout of drinking yesterday. She had some seizure-like activity. Her also stated that he has seen her having a seizure while he was driving a motor bike and she was in the backseat and she had a seizure. Patient has not been to see a neurologist in the past. She has been having seizures on and off for quite some time. She also has not been anticonvulsant. The scan of brain without contrast and EEG were performed since admission and these did not show any significant abnormalities. She has been started on Keppra 1000 mg twice a day. Her urine toxicology screen was positive for benzodiazepine and cannabis. test was negative. It was noted that she was given a loading dose of 1500 mg of Keppra at the time of presentation. She also thought to emotionally labile and stated that she was an alcoholic and she quit drinking in October and that she relapsed last night. According to the emergency room notes [place]. She stated that she has 6 double shots of fireball after getting in an argument with her . She has had multiple witnessed seizures episodes by EMS prior to arrival. According to EMS he did return to her baseline. Review of Systems 2 Review of Systems: All systems reviewed & are unremarkable except as noted in HPI and below PMFSH Past Medical History Medical History (Updated 07/24/25 @ 13:01 by Salvatore Quesada MD) Chronic alcohol abuse GERD (gastroesophageal reflux disease) IUP (intrauterine ), incidental Social History Social History Smoking packs per day: 1 Smoking cigarettes per day: 20.0 Years smoked: 10 Smoking pack-years: 10.00 Smoking status: Current every day smoker Tobacco type: cigarettes Alcohol intake: current Substance use: current Substance use type: marijuana Other substance usage details: Twice a day. Do You Feel Safe in your Home?: Yes Lack of Transportation: No Lack of Food: Never True Current Housing: I Have Housing Concerned About Future Housing: No Difficulty Paying Gas/Electric Bills: No Difficulty Paying for Meds: No Currently Unemployed: No Education: Decline to Answer Difficulty w/ Childcare or Family Care: No Living arrangements: with family Gender identity (if verbalized by the patient): Female Spiritual care concerns: No Meds Home Medications and Allergies Home Medications ?Medication ?Instructions ?Recorded ?Confirmed ?Type No Home Medications 07/23/25 07/23/25 H istory Allergies Allergy/AdvReac Type Severity Reaction Status Date / Time naproxen Allergy Rash Verified 07/23/25 09:02 sulfamethoxazole (From Allergy Rash Verified 07/23/25 09:02 Bactrim) trimethoprim (From Bactrim) Allergy Rash Verified 07/23/25 09:02 LIVE VACCINES Allergy Severe Other Uncoded 02/11/25 09:47 Vital Signs Vital Signs - 24 hr 07/23/25 14:00 07/23/25 15:54 07/23/25 16:00 Temperature 98.0 F Pulse Rate 56 L 58 L 55 L Respiratory Rate 20 Blood Pressure 121/64 Pulse Oximetry 97 Oxygen Delivery Fraction of Inspired Oxygen 07/23/25 16:00 07/23/25 18:00 07/23/25 20:00 Temperature Pulse Rate 59 L Respiratory Rate Blood Pressure 121/64 Pulse Oximetry Oxygen Delivery Room Air Fraction of Inspired Oxygen 07/23/25 20:00 07/23/25 20:00 07/23/25 20:32 Temperature 97.7 F Pulse Rate 59 L 59 L 53 L Respiratory Rate 20 20 Blood Pressure 103/46 L Pulse Oximetry 97 94 Oxygen Delivery Room Air Fraction of Inspired Oxygen 07/23/25 21:46 07/23/25 23:14 07/24/25 00:00 Temperature 97.6 F Pulse Rate 53 L 62 Respiratory Rate 18 Blood Pressure 110/46 L 110/46 L Pulse Oximetry 95 Oxygen Delivery Fraction of Inspired Oxygen 07/24/25 04:00 07/24/25 04:00 07/24/25 04:00 Temperature Pulse Rate 62 62 Respiratory Rate 18 Blood Pressure 110/46 L Pulse Oximetry 95 Oxygen Delivery Room Air Fraction of Inspired Oxygen 21 07/24/25 04:00 07/24/25 06:00 07/24/25 07:51 Temperature 97.7 F 98.2 F Pulse Rate 46 L 84 54 L Respiratory Rate 16 20 Blood Pressure 114/57 L 138/77 Pulse Oximetry 92 100 Oxygen Delivery Fraction of Inspired Oxygen 07/24/25 08:30 07/24/25 10:30 07/24/25 10:30 Temperature Pulse Rate 54 L 50 L 50 L Respiratory Rate Blood Pressure 126/69 Pulse Oximetry Oxygen Delivery Fraction of Inspired Oxygen 07/24/25 11:00 07/24/25 11:32 Temperature 98.0 F Pulse Rate 55 L 54 L Respiratory Rate 16 18 Blood Pressure 122/74 145/79 H Pulse Oximetry 98 Oxygen Delivery Fraction of Inspired Oxygen Exam 2 Const: General: cooperative, healthy appearing and comfortable HENMT: Head: atraumatic Mouth: Yes oropharynx normal Eyes: Alignment and Position: alignment normal and position normal EOM: E OMs intact bilaterally Neck: Neck: normal visual inspection and supple Resp: Effort & Inspection: normal respiratory effort Cardio: Heart sounds: S1 normal heart sound present and S2 normal heart sound present Skin: General skin exam: normal color Neuro: Cranial nerves: Yes CN's II-XII intact bilaterally, Yes facial symmetry and Yes Midline tongue present Cognition (Neuro): normal cognition Speech: normal speech Sensory Exam: normal sensation Coordination: [id number] test normal and Normal rapid alternating movements of the distal upper extremity present (Neuro) Extrem: General: normal to inspection Psych: Mental Status: mental status grossly normal Speech and movement: N ormal speech and movement present Affect: normal affect Thought process: N ormal thought process present Insight: Good insight present (Psych) J udgement: Good judgement present (Psych) Results Labs 07/24/25 02:42 07/24/25 02:42 Labs: Short CBC 07/24/25 Range/Units 02:42 WBC 8.1 (4.5-10.0) K/mm3 Hgb 10.9 L (12.0-15.0) g/dL Hct 34.5 L (37.0-47.0) % Plt Count 206 (150-375) k/mm3 BMP 07/24/25 02:42 Sodium 134 L Potassium 3.5 Chloride 110 H Carbon Dioxide 23 BUN 8 Creatinine 0.62 L Glucose 84 Calcium 7.7 L Liver Function 07/24/25 Range/Units 02:42 Total Bilirubin 0.5 (0.2-1.3) mg/dL AST 19 (14-36) U/L ALT 12 (6-35) U/L Alkaline Phosphatase 66 (38-126) U/L Albumin 2.8 L (3.5-5.1) g/dL
--- NOTE | 2025-07-24 14:12 | P.PNIM_ITS ---
Progress Note: A&P Assessment and Plan (1) Witnessed seizure-like activity: Code(s): R56.9 - Unspecified convulsions Status: Acute Plan Seizure ?Epilespy Patent noted she had one episode of seizure last year but did not elaborate However given here claim that her last alcohol was in October until yesterday, this is less likely to be alcohol withdrawal seizures EEG, CT head unremarkable MRI ordered per Neuro recs Continue Keppra and Keppra Neuro following Alcohol intoxication Patinet counselled about alcohol cessation continue [facility] protocol Tobacco use disorder Counseled about cessation DVT prophylaxis on SQ Lovenox Full code Subjective Date/time seen: 07/24/25 14:12 Interval history: Comfortable at bedside Neuro eval noted Review of Systems Review of Systems: All other systems were reviewed adn negative except as noted in the HPI above Exam Narrative: General: alert and comfortable Eyes: EOMI, PERRLA ENNT External ears normal, Neck is supple, no masses, Respiratory systems: Clear to auscultation Cardiovascular S1, S2, normal rhythm, no murmur, rub, or gallop; no thrill or palpable murmurs on palpation. Gastrointestinal: soft, non-tender, and non-distended abdomen with no masses; BS present Skin: no rash, lesions, ulcerations, subcutaneous nodules or induration Musculoskeletal: no abnormality and no tenderness, normal ROM Neurologic: Alert and oriented x3, non focal Mental Status Exam: emotionally labile Objective Data Vital Signs Vital Signs: Vital Signs - 24 hr 07/23/25 15:54 07/23/25 16:00 07/23/25 16:00 Temperature 98.0 F Pulse Rate 58 L 55 L Respiratory Rate 20 Blood Pressure 121/64 Pulse Oximetry 97 Oxygen Delivery Room Air Fraction of Inspired Oxygen 07/23/25 18:00 07/23/25 20:00 07/23/25 20:00 Temperature Pulse Rate 59 L 59 L Respiratory Rate 20 Blood Pressure 121/64 Pulse Oximetry 97 Oxygen Delivery Room Air Fraction of Inspired Oxygen 07/23/25 20:00 07/23/25 20:32 07/23/25 21:46 Temperature 97.7 F Pulse Rate 59 L 53 L 53 L Respiratory Rate 20 Blood Pressure 103/46 L Pulse Oximetry 94 Oxygen Delivery Fraction of Inspired Oxygen 07/23/25 23:14 07/24/25 00:00 07/24/25 04:00 Temperature 97.6 F Pulse Rate 62 62 Respiratory Rate 18 18 Blood Pressure 110/46 L 110/46 L Pulse Oximetry 95 95 Oxygen Delivery Room Air Fraction of Inspired Oxygen 21 07/24/25 04:00 07/24/25 04:00 07/24/25 04:00 Temperature 97.7 F Pulse Rate 62 46 L Respiratory Rate 16 Blood Pressure 110/46 L 114/57 L Pulse Oximetry 92 Oxygen Delivery Fraction of Inspired Oxygen 07/24/25 06:00 07/24/25 07:51 07/24/25 08:30 Temperature 98.2 F Pulse Rate 84 54 L 54 L Respiratory Rate 20 Blood Pressure 138/77 Pulse Oximetry 100 Oxygen Delivery Fraction of Inspired Oxygen 07/24/25 10:30 07/24/25 10:30 07/24/25 11:00 Temperature Pulse Rate 50 L 50 L 55 L Respiratory Rate 16 Blood Pressure 126/69 122/74 Pulse Oximetry Oxygen Delivery Fraction of Inspired Oxygen 07/24/25 11:32 Temperature 98.0 F Pulse Rate 54 L Respiratory Rate 18 Blood Pressure 145/79 H Pulse Oximetry 98 Oxygen Delivery Fraction of Inspired Oxygen Intake/Output Intake/Output: Intake & Output 07/21/25 07/22/25 07/23/25 07/24/25 23:59 23:59 23:59 23:59 Intake Total 2790 460 Output Total 0 Balance 2790 460 Meds/Results Medications: Active Medications Generic Name Dose Route Start Last Admin Trade Name Freq PRN Reason Stop Dose Admin Diazepam 5 - 10 mg 07/23/25 12:00 Diazepam Inj (*Crx) 10 Mg/2 Ml Syringe IV PUSH Q5M PRN CIWA > 15 Levetiracetam 1,000 mg in 100 mls @ 400 mls/hr 07/23/25 12:05 07/24/25 09:45 Keppra Iv IVPB Infused Q12HR RICK Infusion Ondansetron HCl 4 mg 07/23/25 08:50 07/23/25 17:52 Ondansetron Inj 4 Mg/2 Ml Vial IV PUSH 4 mg Q6H PRN Administration Nausea And Vomiting Phenobarbital Sodium 65 mg 07/23/25 21:00 07/24/25 09:29 Phenobarbital Sodium (*Crx) 65 Mg/Ml Vial IV PUSH 07/26/25 21:01 65 mg Q12HR RICK Administration Radiology Results: ITS Impressions Chest X-Ray 07/23/25 05:44 IMPRESSION: 1. No acute cardiopulmonary findings given portable technique. Head CT 07/23/25 05:57 IMPRESSION: 1. No acute intracranial findings. Labs Labs: Laboratory Results - last 24 hr 07/23/25 07/23/25 07/24/25 03:48 15:23 02:42 WBC 8.1 RBC 3.87 L Hgb 10.9 L Hct 34.5 L MCV 89.1 MCH 28.2 MCHC 31.6 L RDW 14.2 Plt Count 206 MPV 11.3 H Immature Gran % (Auto) 0.4 Neut % (Auto) 46.4 Lymph % (Auto) 41.9 [place] % (Auto) 7.0 Eos % (Auto) 3.4 Baso % (Auto) 0.9 Lymph # (Auto) 3.40 H [place] # (Auto) 0.6 Eos # (Auto) 0.3 Baso # (Auto) 0.1 Abs Immat Gran (auto) 0.03 Absolute Neuts (auto) 3.8 Absolute Nucleated RBC 0.000 Nucleated RBC % 0.0 Sodium 134 L Potassium 3.5 Chloride 110 H Carbon Dioxide 23 Anion Gap 1 L BUN 8 Creatinine 0.62 L Estim Creat Clear Calc 130 Estimated GFR > 60 Glucose 84 POC Capillary Glucose 121 H Calcium 7.7 L Magnesium 2.1 Total Bilirubin 0.5 AST 19 ALT 12 Alkaline Phosphatase 66 Total Protein 5.2 L Albumin 2.8 L Prolactin 21.7 07/24/25 07/24/25 06:17 11:11 WBC RBC Hgb Hct MCV MCH MCHC RDW Plt Count MPV Immature Gran % (Auto) Neut % (Auto) Lymph % (Auto) [place] % (Auto) Eos % (Auto) Baso % (Auto) Lymph # (Auto) [place] # (Auto) Eos # (Auto) Baso # (Auto) Abs Immat Gran (auto) Absolute Neuts (auto) Absolute Nucleated RBC Nucleated RBC % Sodium Potassium Chloride Carbon Dioxide Anion Gap BUN Creatinine Estim Creat Clear Calc Estimated GFR Glucose POC Capillary Glucose 87 84 Calcium Magnesium Total Bilirubin AST ALT Alkaline Phosphatase Total Protein Albumin Prolactin
[2025-07-25] VITALS: PULSE 52
[2025-07-25 02:00] VITALS: PULSE 48
[2025-07-25 03:52] LABS: Alanine Aminotransferase 14 U/L (6-35); Albumin Level 3.4 g/dL (3.5-5.1); Alkaline Phosphatase 74 U/L (38-126); Anion Gap 5 mmol/L (4-12); Aspartate Amino Transferase 21 U/L (14-36); Bilirubin,Total 0.3 mg/dL (0.2-1.3); Blood Urea Nitrogen 6 mg/dL (7-17); Calcium 8.4 mg/dL (8.4-10.2); Carbon Dioxide 24 mmol/L (22-30); Chloride 106 mmol/L (98-107); Estimated CRCL calculation 129 ml/min; Estimated Glomerular Filt Rate > 60; Glucose 90 mg/dL (65-110); Magnesium 1.8 mg/dL (1.6-2.3); Potassium 3.9 mmol/L (3.4-5.0); Sodium 135 mmol/L (137-145); Total Protein 5.9 g/dL (6.3-8.2)
[2025-07-25 04:00] VITALS: BP 126/82; PULSE 46; RESP 15; TEMP 36.4; O2SAT 99
[2025-07-25 04:09] LABS: Hematocrit 37.0 % (37.0-47.0); Hemoglobin 12.1 g/dL (12.0-15.0); Immature Granulocyte Percent A 0.5 % (0-0.5); Lymphocytes Absolute Auto 2.87 K/mm3 (0.9-3.2); Mean Corpuscular HGB Conc 32.7 g/dl (32-36); Mean Corpuscular Hemoglobin 28.4 pg (26-34); Mean Corpuscular Volume 86.9 fl (80-100); Nucleated Red Blood Cells Absolute Auto 0.000 K/mm3 (0.0-0.012); Nucleated Red Blood Cells Perc 0.0 % (0.0-0.2); Platelet Count Result 213 k/mm3 (150-375); Red Blood Count 4.26 M/mm3 (4.2-5.4); White Blood Count 10.6 K/mm3 (4.5-10.0)
[2025-07-25 06:00] VITALS: PULSE 51
[2025-07-25 08:00] VITALS: BP 125/61; BP 140/85; PULSE 52; PULSE 55; RESP 16; TEMP 36.5; O2SAT 98
[2025-07-25] MEDS: levETIRAcetam 1000MG/NACL100ML 1,000 MG/100 ML BAG 400 MG IVPB (09:29)
[2025-07-25] MEDS: PHENobarbitaL sodium (*CRX) 65 MG/ML VIAL IV PUSH (09:29)
[2025-07-25 11:00] VITALS: BP 140/85; PULSE 54; RESP 16; TEMP 36.5; O2SAT 100
--- NOTE | 2025-07-25 11:08 | P.DS_ITS ---
DS: Admitting Diagnosis Discharge Date 07/25/2025 Admitting Diagnosis seizures DS: Discharge Diagnosis Discharge Diagnosis (1) Witnessed seizure-like activity: Code(s): R56.9 - Unspecified convulsions Status: Acute DS: Summary Hospital Course Hospital Course: 25 yo female with PMH of Migraines who was brought to the ER for seizures. Patient wa emotionally labile during this encounter, stated she was an alcoholic but quit since October dn relapsed last night and drank 6 fireballs and woke up in the ER where she stated she was informed she had multiple seizures. Otherwise denies any chest pain, SOB, abd pain, vomiting or diarrhea prior to drinking yesterday. ER eval vital signs stable and within normal limits Labs UDS positive for Benzos and Cannabinoids, WBC 10.7, HCG negative, CT head and CXR no acute changes. Patient insisted she has not had alcohol since October until the day before admission. Neurology was consulted, EEG and MRI brain unremarkable. Neurology recommended discharge on Keppra 1000mg bid. Because patient has been on Phenobarb protocol she was discharged on PRN Librium 10mg bid PRN x 4 days. F/u with PCP in 3-5 days F/u with Neurology in 1-2 weeks Time Spent with Patient Time attestation: Total time spent providing and/or coordinating discharge services: DS: Data Data Completed and Pending Labs on day of discharge: Labs from last 24 hours 07/25/25 07/24/25 07/24/25 03:28 18:03 11:11 WBC 10.6 H RBC 4.26 Hgb 12.1 Hct 37.0 MCV 86.9 MCH 28.4 MCHC 32.7 RDW 13.9 Plt Count 213 MPV 10.8 H Immature Gran % (Auto) 0.5 Neut % (Auto) 62.9 Lymph % (Auto) 27.0 [place] % (Auto) 6.2 Eos % (Auto) 2.7 Baso % (Auto) 0.7 Lymph # (Auto) 2.87 [place] # (Auto) 0.7 H Eos # (Auto) 0.3 Baso # (Auto) 0.1 Abs Immat Gran (auto) 0.05 H Absolute Neuts (auto) 6.7 Absolute Nucleated RBC 0.000 Nucleated RBC % 0.0 Sodium 135 L Potassium 3.9 Chloride 106 Carbon Dioxide 24 Anion Gap 5 BUN 6 L Creatinine 0.64 L Estim Creat Clear Calc 129 Estimated GFR > 60 Glucose 90 POC Capillary Glucose 160 H 84 Calcium 8.4 Magnesium 1.8 Total Bilirubin 0.3 AST 21 ALT 14 Alkaline Phosphatase 74 Total Protein 5.9 L Albumin 3.4 L Prolactin 07/24/25 02:42 WBC RBC Hgb Hct MCV MCH MCHC RDW Plt Count MPV Immature Gran % (Auto) Neut % (Auto) Lymph % (Auto) [place] % (Auto) Eos % (Auto) Baso % (Auto) Lymph # (Auto) [place] # (Auto) Eos # (Auto) Baso # (Auto) Abs Immat Gran (auto) Absolute Neuts (auto) Absolute Nucleated RBC Nucleated RBC % Sodium Potassium Chloride Carbon Dioxide Anion Gap BUN Creatinine Estim Creat Clear Calc Estimated GFR Glucose POC Capillary Glucose Calcium Magnesium Total Bilirubin AST ALT Alkaline Phosphatase Total Protein Albumin Prolactin 14.5 Discharge Plan Discharge Attending physician on discharge: Tami David Consulting providers: Hernán Faith Discharging Clinician: Tami David Anticipated Discharge Date/Time: 07/25/25 11:04 Patient Disposition: Home Activity: as tolerated Diet: as tolerated and regular Patient Instructions: Antibiotic Form, Levetiracetam (By mouth), New-Onset Seizure in Adults (DC) Patient Language: [place] Stand Alone Forms: General Discharge Information Follow-up/Referrals: Hernán Faith MD [Physician, Neurology] Referral Note: F/u with Neurology in 1 -2 weeks UNKNOWN,DOCTOR [Primary Care Provider] Referral Note: F/u with PCP in 3-5 days Discharge Medications: New chlordiazepoxide HCl 10 mg capsule 10 mg PO BID PRN (Reason: anxiety) 4 Days Qty: 8 0RF levetiracetam [Keppra] 1,000 mg tablet 1,000 mg PO BID 30 Days Qty: 60 1RF Date of admission: 07/23/25 04:14 Primary Care Provider: UNKNOWN,DOCTOR Admitting Provider: Laisha Kwong Attending physician on admission: Laisha Kwong Condition: Stable
== END 2025-07-25 11:26 | disposition home or self-care (01) ==
LOC: ANHED 07-23 02:30 → ANHIMU 07-23 15:06
PROVIDERS: Psychiatry & Neurology Neurology; Admitting Provider Internal Medicine; Emergency Provider Emergency Medicine; Visit Provider Internal Medicine
DX: R56.9 Unspecified convulsions (principal); F10.129 Alcohol abuse with intoxication, unspecified; Y90.7 Blood alcohol level of 200-239 mg/100 ml; K21.9 Gastro-esophageal reflux disease without esophagitis; F17.210 Nicotine dependence, cigarettes, uncomplicated; F12.90 Cannabis use, unspecified, uncomplicated; Z87.59 Personal history of other complications of pregnancy, childbirth and the puerperium
CPT/HCPCS: 36415; 70450; 70553; 71045; 80053; 80143; 80179; 80307; 81003; 81025; 82077; 82550; 82948; 83605; 83735; 84146; 84703; 85025; 93005; 94640; 95816; 96360; 96361; 96365; 96366; 96374; 96375; 96376; 99285; A9577; G0378; G0379; J1953; J2250; J2405; J2560; J3411; J3475; J7030